=== PATIENT | male | born 2000 | race Caucasian/White ===

== ENCOUNTER 2025-06-03 23:01 | Emergency (ER) | payer OTHER, SELFPAY ==
[2025-06-03 23:01] VITALS: BP 110/78; PULSE 102; RESP 16; TEMP 36.8; O2SAT 99
[2025-06-03 23:33] LABS: Hematocrit 47.4 % (42.0-52.0); Hemoglobin 16.0 g/dL (14.0-18.0); Immature Granulocyte Percent A 0.2 % (0-0.5); Lymphocytes Absolute Auto 3.00 K/mm3 (0.9-3.2); Mean Corpuscular HGB Conc 33.8 g/dl (32-36); Mean Corpuscular Hemoglobin 28.6 pg (26-34); Mean Corpuscular Volume 84.6 fl (80-100); Nucleated Red Blood Cells Absolute Auto 0.000 K/mm3 (0.0-0.012); Nucleated Red Blood Cells Perc 0.0 % (0.0-0.2); Platelet Count Result 223 k/mm3 (150-375); Red Blood Count 5.60 M/mm3 (4.6-6.20); White Blood Count 13.5 K/mm3 (4.5-10.0)
[2025-06-03 23:43] LABS: Alanine Aminotransferase 30 U/L (6-50); Albumin Level 5.0 g/dL (3.5-5.1); Alkaline Phosphatase 60 U/L (38-126); Anion Gap 10 mmol/L (4-12); Aspartate Amino Transferase 40 U/L (17-59); Bilirubin,Total 0.2 mg/dL (0.2-1.3); Blood Urea Nitrogen 18 mg/dL (9-20); Calcium 9.8 mg/dL (8.4-10.2); Carbon Dioxide 27 mmol/L (22-30); Chloride 103 mmol/L (98-107); Estimated CRCL calculation 109 ml/min; Estimated Glomerular Filt Rate > 60; Glucose 98 mg/dL (65-110); Potassium 4.1 mmol/L (3.4-5.0); Sodium 140 mmol/L (137-145); Total Protein 8.1 g/dL (6.3-8.2)
[2025-06-03 23:51] LABS: Cannabinoid Screen Urine Negative (Negative)
--- OUTSIDE RECORDS SUMMARY | 2025-06-03 23:54 | XMS_ITS | Encounter Summary ---
Author Organization [facility] Address [address] [place] [address] Care Team Providers Care Loft Worker Head Name Role Phone Leopoldo Dillard MD Primary Care Provider Donny Kumar MD Primary Care Provider [phone] Lucinda Zabala FISH HATCHERY SUPERINTENDENT-MACHINE ERECTOR Primary Care Provider + Ellie Restrepo FISH HATCHERY SUPERINTENDENT-MACHINE ERECTOR Primary Care Provider -[phone] Haroon Root MD Primary Care Provider Celsa Marques FISH HATCHERY SUPERINTENDENT-MACHINE ERECTOR Unavailable Haroon Root MD Unavailable [phone] Chidi Jeffries METHOD CONSULTANT Unavailable [phone] Elaine Rodriguez RN Unavailable [phone] Thomas Lorenzo RN Unavailable [phone] Mitzi Stratton RECORDIST Unavailable Thomas Lorenzo RN Unavailable Mikala Blair RN Unavailable [phone] Encounter Details Date Type Department Care Team (Late st Contact Info) Description 10/27/2013 [facility] Outpatient Visit [facility] - Pediatrics [address], [address] [place] [address] Leopoldo Dillard MD [address] [place] [address] Social History Tobacco Use Types Packs/Day Years Used Date Smoking Tobacco: Never Alcohol Use Standard Drinks/Week Comments Not Asked 0 (1 standard drink = 0.6 oz pur e alcohol) Sex and Gender Information Value Date Recorded Sex Assigned at Not on file Legal Sex Male 2:04 PM [employer] Gender Identity Not on file Sexual Orientation Not on file documented as of this encounter Plan of Treatment Not on file documented as of this encounter Visit Diagnoses Not on filedocumented in this encounter Additional Health Concerns Infection Onset Date Last Indicated Resolved Time COVID-19 Confirmed 06/11/2022 06/11/2022 4:33 AM CDT COVID-19 Under Investigation 06/30/2022 06/30/2022 06/30/2022 11:11 AM CDT Influenza A or B 01/15/2024 01/15/2024 01/22/2024 4:33 AM [employer] COVID-19 Under Investigation 10/08/2024 10/08/2024 10/08/2024 7:41 AM [employer] HAND COVID-19 Under Investigation 11/25/2024 11/25/2024 11/25/2024 2:40 PM [employer] HAND COVID-19 Under Investigation 01/23/2025 01/23/2025 01/23/2025 11:17 PM [employer] documented as of this encounter Care Teams Loft Worker Head Relationship Specialty Start Date End Date Leopoldo Dillard MD [address] [place] [phone] PCP - General Pediatrics 10/17/17 10/27/18 Donny Kumar MD [address] [place] [address] PCP - General Pediatrics 10/28/18 01/28/20 Lucinda Zabala APRN-MACHINE ERECTOR [address] [place] [address], [address] [place] [address] PCP - General Nurse Practitioner Family 01/29/20 05/06/20 Ellie Restrepo, FISH HATCHERY SUPERINTENDENT-MACHINE ERECTOR [address] [place] [address] [phone] (Work) PCP - General Psychiatry 05/07/20 06/01/20 Haroon Root MD [address] [place] [phone] PCP - General Family Medicine 09/01/21 10/29/21 Celsa Marques APRN-MACHINE ERECTOR [address] [place] [phone] PCP - Attributed-[employer] Medicaid [employer] 07/27/21 Haroon Root MD [address] [place] [phone] PCP - Attributed-[employer] Medicaid [facility] 04/26/21 Chidi Jeffries [facility] Outpatient [facility] Care Management 01/08/24 01/08/24 Elaine Rodriguez RN Acoustical Tile Drill Press OperatorSenior Controls Technician 04/09/24 04/09/24 Thomas Lorenzo, RN Acoustical Tile Drill Press OperatorSenior Controls Technician 09/18/24 09/18/[address] [address] Outpatient [facility] Care Management 01/28/25 01/29/25 Thomas Lorenzo, RN Acoustical Tile Drill Press OperatorSenior Controls Technician 04/21/25 04/21/25 Mikala Blair, RN [address] [address] Acoustical Tile Drill Press OperatorSenior Controls Technician 05/27/25 05/27/25 documented as of this encounter
--- OUTSIDE RECORDS SUMMARY | 2025-06-03 23:54 | XMS_ITS | Clinical Summary ---
Author Organization [facility] Address [address] [place] [address] Care Team Providers Care Mathematical Statistician Name Role Phone ShelliAustynCelsasandeep PEÑALOZA Unavailable [phone] Haroon Root MD Unavailable [phone] Source Comments [facility],non-owned Affiliates and Associated Physician Practices is amultiple site organization consisting of ambulatory clinics and hospital sitesin [place], [place], [place] and [place]. This disclosure is being madepursuant to the Care Everywhere program and may not contain all information available regarding this patient. Last updated 18.[facility] Allergies Active Allergy Reactions Criticality Noted Date Comments Dust Mite Extract Other 04/03/2024 Medications * This document contains information received from the source organization and may not represent a complete record from that organization. * Be aware that medications may not be up to date on this document. Alwaysverify current medications with the patient. venlafaxine XR 24hr (Effexor XR) 37.5 MG capsuleIndica tions:Major Depressive Disorder Take 1 (one) capsule by mouth daily with dinner for 30 days Reasons: Major Depressive Disorder 30 capsule 05/26/20 25 025 Active multiple vitamins with minerals tabletIndicat ions:Vitamin Deficiency Take 1 (one) tablet by mouth once daily for 30 days Reasons: Vitamin Deficiency 30 tablet 05/26/20 25 025 Active folic acid (Folvite) 1 MG tabletIndicat ions:Nutritio nal Support Take 1 (one) tablet by mouth once daily for 30 days Reasons: Nutritional Support 30 tablet 05/26/20 25 025 Active thiamine (Vitamin B-1) 100 MG tabletIndicat ions:Nutritio nal Support Take 1 (one) tablet by mouth once daily for 30 days Reasons: Nutritional Support 30 tablet 05/26/20 25 025 Active nicotine polacrilex (Nicorette) 2 MG gumIndication s:Nicotine Dependence Take 1 (one) Each by mouth as needed for Smoking Cessation - Gum should be slowly chewed until a peppery taste emerges, then parked between cheek and gum to facilitate nicotine absorption. - Avoid eating or drinking for 15 minutes before and during chewing gum. Reasons: Nicotine Addiction 60 Each 05/26/20 25 025 Active nicotine polacrilex (Nicorette) 2 MG gumIndication s:Nicotine Dependence Take 1 (one) Each by mouth as needed for Smoking Cessation - Gum should be slowly chewed until a peppery taste emerges, then parked between cheek and gum to facilitate nicotine absorption. - Avoid eating or drinking for 15 minutes before and during chewing gum. Reasons: Nicotine Addiction 50 Each 01/29/20 25 025 Discontinued(Cl inical Decision) venlafaxine XR 24hr (Effexor XR) 37.5 MG capsuleIndica tions:Major Depressive Disorder Take 1 (one) capsule by mouth daily with dinner Reasons: Major Depressive Disorder 30 capsule 04/17/20 25 025 Discontinued Active Problems Problem Noted Date Diagnosed Date Alcohol abuse, episodic 02/23/2025 Suicidal ideations 02/23/2025 Malingering 09/15/2024 Tobacco use disorder 09/14/2024 Alcohol use disorder, severe, dependence 022 History of oppositional defiant disorder 021 ADHD (attention deficit hyperactivity disorder) 01/18/2021 Unspecified mood (affective) disorder 01/17/2021 Cannabis use disorder, severe, dependence 2018 High blood triglycerides 05/19/2019 Mild intermittent asthma without complication Overview (10/20/2024): Last Assessment & Plan: Assessment: Hx of intermittent asthma. No current asthma symptoms or recent illness. Lungs clear bilaterally. Plan: -Albuterol PRN -Singulair 10 mg QHS -Loratadine 10 mg daily Heart murmur 07/22/2016 Conductive hearing loss of l eft ear with unrestricted hearing of right ear 12/10/2012 Resolved Problems Problem Noted Date Diagnosed Date Resolved Date Crohn's disease 09/14/2024 09/14/2024 Homelessness 04/03/2024 09/14/2024 Deviated septum 04/30/2023 09/14/2024 Overview (09/14/2024): Last Assessment & Plan: Start Flonase 2 sprays each nostril once daily, making sure look down and aim out away from septum to reduce the potential risk of nosebleeds. If you have nosebleeds, you should stop the flonase and switch to saline nasal spray instead. Ear discharge blood, left 04/30/2023 Overview (10/20/2024): Last Assessment & Plan: Dry ear, wear ear plug when showering Avoid qtips Ok to go to rehab Follow up in several weeks for a recheck ofloxin BID for 10 days Acute COVID-19 05/20/2022 09/14/2024 Abdominal pain, generalized 10/30/2019 08/23/2021 Vomiting 10/30/2019 08/23/2021 Diarrhea 10/30/2019 11/27/2019 Intestinal infection due to Aeromonas hydrophila 07/27/2019 10/20/2024 Acute infective gastroenteritis 07/26/2019 10/20/2024 Overview (10/20/2024): Stool culture positive for Aeromonas on 07/27/2019 Last Assessment & Plan: x1 day bright red blood per rectum and one episode of coffee ground emesis, with lower abdominal pain. He has a prior history of constipation, though currently controlled on miralax and colace. External hemorrhoid on rectal exam could be contributing to red blood per rectum, however would not explain the emesis. Infectious causes are on the differential, including Salmonella, campylobacter, escherichia coli, and yersinia. C diff. was negative. Lower concern with IBD with no other systemic symptoms, normal inflammatory markers, and no oral lesions or rectal fissures/ skin tags. No food association that patient recalls, but celiac's is still a posibility. With prior alcohol history, portal pathology was considered. However he shows no other signs of portal hypertension.Patient denies insertion of foreign objects per rectum or ingestion of substances. Plan: -HUS mitigation protocol - 2L/m2 MIVF -Stool culture -f/u rectal swab -TTG -CBC, CMP in the AM Rash 06/19/2019 10/20/2024 Overview (10/20/2024): Last Assessment & Plan: Assessment: Patient with patchy, erythematous macules/papules to Bilateral lower extremities. +pruritus. Rash due to irritant such as poison olga or poison oak. Plan: -hydrocortisone cream PRN itching Elevated CPK 05/19/2019 10/20/2024 Elevated WBC count 05/19/2019 Vitamin D deficiency 05/19/2019 024 Gastroesophageal reflux disease 06/20/2018 10/20/2024 Ulcer of palate 11/02/2017 10/20/2024 Asthma 07/22/2016 09/14/2024 Palpitations 02/05/2015 08/23/2021 Assessment & Plan (02/05/2015 11:05 AM CDT): IMPRESSION Stoney is a 14 year-old with: 1. Structurally normal heart by exam, ECG, and echocardiogram. 2. Episodes of rapid heart beat associated with exercise. PLAN Stoney has a structurally normal heart by exam, ECG, and echocardiogram. I see nothing on his cardiology evaluation today to explain his symptoms. It is certainly worrisome that they have occurred during the setting of physical activity; for this reason, I have made arrangements for a graded exercise stress test to be performed in the coming weeks to try to elicit his symptoms during exercise-induced stress while watching his telemetry. For the time being, given his normal evaluation thus far, I would not restrict him from a cardiovascular standpoint regarding his routine care or activity. His follow up will be at the stress test. Stoney does not require SBE prophylaxis. S/P tympanoplasty 08/06/2012 02/22/2022 Tympanic membrane perforation 05/28/2012 10/28/2018 Sensation of fullness in left ear 08/23/2021 Encounters * This document contains information received from the source organization and may not represent a complete record from that organization. Date Type Department Care Team Description 05/27/2025 Transitional Care [facility] - Care Coordination [address] [place] [address] Mikala Blair, helix coil winder 05/23/2025 Travel 05/22/2025 10:30 PM CDT - 05/23/2025 9:43 AM CDT Emergency ER at [address] [address] Mood disorder; Suicidal ideation Discharge Disposition: Psychiatric Hospital or Unit 05/22/2025 Travel 05/01/2025 Patient Outreach [facility] Care Coordination [address] [place] [address] Mike Padilla, [facility] UC Follow-up 04/30/2025 3:21 AM CDT - 04/30/2025 4:39 PM CDT Emergency ER at [address] [address] Kevin Victoria DO Gomez, Philip Gabriel, MD Suicidal ideation (Primary Dx); Alcohol use disorder Discharge Disposition: Home or Self Care 04/30/2025 Travel 04/14/2025 4:13 AM CDT - 04/14/2025 7:33 PM CDT Emergency ER at [address] [address] Roemo White MD Bruton, Blake A., MD Severe episode of recurrent major depressive disorder, without psychotic features (HCC); Suicidal ideation Discharge Disposition: Psychiatric Hospital or Unit 04/14/2025 Travel 03/31/2025 Patient Outreach [facility] Care Coordination [address] [place] [address] Kelly Blair [facility] UC Follow-up 03/30/2025 Patient Outreach [facility] - Care Coordination [address] [place] [address] Kelly Blair MSW ER UC Follow-up 03/30/2025 Patient Outreach [facility] - [place] [id number] Kelly Blair, COIN MACHINE ASSEMBLER ER UC Follow-up 03/28/2025 3:00 AM CDT - 03/28/2025 10:25 PM CDT Emergency ER at [address] [address] Romeo White MD Treaster, MD Julien Armas Nicholas A, DO Mood disorder (Primary Dx); Depression with suicidal ideation Discharge Disposition: Psychiatric Hospital or Unit 03/28/2025 Travel 03/26/2025 Travel from Last 3 Months Immunizations Immunization Administration Dates Next Due DTP 05/03/2007, 3,06/12/2002,03/31,01/27/2002 DTaP VACCINE IM (6wk-6yrs) 02/05/2003,,03/31/2002,01/27 HEP B VACCINE, PED/ADOL 06/12/2002,2001, HIB Hep B 06/12/2002 HIB VACCINE 02/05/2003,03/31/2002,01/27/2002 HIB-PRP-T 4 DOSE 02/05/2003, 2,03/31/2002,01/27 Human Papilloma Virus Nineva lent Vaccine 12/12/2018,09/18/2018,02/18/2018 INFLUENZA VACCINE, QUADR. (F LUZONE; FLULAVAL; FLUARIX; AFLURIA QUADRIVALENT; 6MO+), 0.5 ML (IIV4) 01/18/2021,09/04/2019,09/18/2018,02/18 INFLUENZA VACCINE, TRIV. (FL UZONE; FLULAVAL; FLUARIX; AFLURIA TRIVALENT; 6MO+), 0.5 ML (IIV3) 01/26/2025(Deferred: Patient Refused) MENINGOCOCCAL ACWY (MCV4P) VAC IM 02/18/2018, MMR 05/03/2007,02/05/2003 Meningococcal B Recombinant 2 Dose, IM 8,09/18/2018 PNEUMOCOCCAL PCV7 CONJ, PEDS 03/03/2005, 06/12/2002,03/31/2002,01/27 POLIO IPV 05/03/2007, 3,06/12/2002,01/27 TDAP (7yrs+) 03/21/2019,06/12/2013 VARICELLA 05/03/2007,02/05/2003 Family History Medical History Relation Name Comments Anesthesia Reaction Mother ponv Relation Name Status Comments Mother Social History Tobacco Use Types Packs/Day Years Used Date Smoking Tobacco: Every Day Cigarettes 1 8.1 Started: 04/20/2017 Passive Smoke Exposure: Never Smokeless Tobacco: Current Chew Tobacco Cessation:Ready to Q uit: No; Counseling Given: Not Answered Alcohol Use Standard Drinks/Week Comments Yes 15 (1 standard drink = 0.6 oz pu re alcohol) current relapse 04/13/23 AUDIT-C Answer Date Recorded Q1: How often do you have a drink containing alcohol? 4 or more times a week 05/23/2025 Q2: How many drinks containi ng alcohol do you have on a typical day when you are drinking? 10 or more Q3: How often do you have si x or more drinks on one occasion? Daily or almost daily 05/23/2025 Overall Financial Resource Strain (CARDIA) Answe r Date Recorded How hard is it for you to pa y for the very basics like food, housing, medical care, and heating? Not hard at all 05/23/2025 PHQ-2 Answer Date Recorded Patient Health Questionnaire-2 Score 0 04/30/2025 [facility] - Occupational Stress Questionnaire Answer Date Recorded Do you feel stress - tense, restless, nervous, or anxious, or unable to sleep at night because your mind is troubled all the time - these days? Only a little 05/23/2025 Hunger Vital Sign Answer Date Recorded Within the past 12 months, y ou worried that your food would run out before you got the money to buy more. Never true 05/23/20 25 Within the past 12 months, t he food you bought just didn't last and you didn't have money to get more. Never true 05/23/2025 PRAPARE - Transportation Answer Date Re corded In the past 12 months, has l ack of transportation kept you from medical appointments or from getting medications? No 04/27 In the past 12 months, has l ack of transportation kept you from meetings, work, or from getting things needed for daily living? Yes 05/23/2025 Housing Stability Vital Sign Answer Pantera e Recorded In the last 12 months, was t here a time when you were not able to pay the mortgage or rent on time? No 04/03/2024 In the last 12 months, how many places have you lived? 1 04/03/2024 In the last 12 months, was t here a time when you did not have a steady place to sleep or slept in a fpc (including now)? Yes 04/03/2024 Housing Stability Vital Sign Answer Pantera e Recorded In the last 12 months, was t here a time when you were not able to pay the mortgage or rent on time? Yes 05/23/2025 In the past 12 months, how m any times have you moved where you were living? 5 05/23/2025 At any time in the past 12 m [facility], were you homeless or living in a fpc (including now)? 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 Gender Identity Not on file Sexual Orientation Not on file Last Filed Vital Signs Vital Sign Reading Time Taken Comments Blood Pressure 112/73 05/26/2025 7:09 AM CDT Pulse 70 05/26/2025 7:09 AM CDT Temperature 36.6 C (97.9 F) 05/26/2025 7:09 AM CDT Respiratory Rate 18 05/26/2025 7:09 AM CDT Oxygen Saturation 97% 05/26/2025 7:09 AM CDT Inhaled Oxygen Concentration 97% 06/08/2020 1 0:59 AM CDT Weight 73.5 kg (162 lb) 05/23/2025 10:15 AM CDT Height 175.3 cm (5' 9) 05/23/2025 10:15 AM CDT Body Mass Index 23.92 05/23/2025 10:15 AM CDT Plan of Treatment Health Maintenance Due Date Last Done Comments PNEUMOCOCCAL VACCINE (1 of 1 - PPSV23, PCV20, or PCV21) 2007 03/03/2005, 06/12/2002, 03/31/2002, Additional history exists HEPATITIS C SCREENING 11/25/2019 COVID-19 VACCINE (1 2023-2 5 season) 2024 DEPRESSION SCREENING 11/26/2024 01/15/2024, 01/15/2024, 07/19/2023, Additional history exists INFLUENZA VACCINE (#1) 2025 , 09/04/2019, 09/18/2018, Additional history exists DTAP/TDAP/TD VACCINES (8 - T d or Tdap) 03/21/2029 03/21/2019, 06/12/2013, 05/03/2007, Additional history exists ZOSTER VACCINE (1 of 2) 2051 HEPATITIS B VACCINE Completed 06/12/2002, 06/12/2002, 2001, Additional history exists HIB VACCINE Completed 02/05/2003, 01/24, 06/12/2002, Additional history exists MENINGOCOCCAL GROUPS A/C/Y/W VACCINE Completed 02/18/2018, 06/12/2013 MENINGOCOCCAL (Group B) VACC INE SHARED DECISION-MAKING Completed 10/21/2018, 09/18/2018 HPV VACCINE Completed 12/12/2018, 08/27, 02/18/2018 HIV SCREENING Completed 04/27/2023, 10/27, 06/01/2020 Procedures Procedure Name Priority Date/Time Associated Diagnosis Comments URINALYSIS REFLEX MICROSCOPIC REFLEX CULTURE STAT 05/23/2025 12:01 AM CDT DRUG ABUSE URINE SCREEN 10 STAT 05/23/2025 12:01 AM CDT TSH STAT 05/22/2025 10:48 PM CDT SALICYLATE LEVEL BLOOD STAT 10:48 PM CDT MAGNESIUM BLOOD STAT 05/22/2025 10:48 PM CDT ALCOHOL ETHYL BLOOD STAT 05/22/2025 1 0:48 PM CDT ACETAMINOPHEN LEVEL STAT 05/22/2025 1 0:48 PM CDT COMPREHENSIVE METABOLIC PANEL STAT 05/22/2025 10:48 PM CDT CBC W AUTO DIFFERENTIAL STAT 05/22/2025 10:48 PM CDT URINALYSIS REFLEX MICROSCOPIC REFLEX CULTURE STAT 04/30/2025 8:52 AM CDT DRUG ABUSE URINE SCREEN 10 STAT 04/30/2025 8:52 AM CDT HEPATIC FUNCTION PANEL Timed 6:38 AM CDT ALCOHOL ETHYL BLOOD Timed 04/30/2025 6 :38 AM CDT TSH STAT 04/30/2025 3:53 AM CDT MAGNESIUM BLOOD STAT 04/30/2025 3:53 AM CDT ALCOHOL ETHYL BLOOD STAT 04/30/2025 3 :53 AM CDT COMPREHENSIVE METABOLIC PANEL STAT 04/30/2025 3:53 AM CDT CBC W AUTO DIFFERENTIAL STAT 04/30/2025 3:53 AM CDT SALICYLATE LEVEL BLOOD STAT 3:52 AM CDT ACETAMINOPHEN LEVEL STAT 04/30/2025 3 :52 AM CDT TSH STAT 04/14/2025 4:23 AM CDT SALICYLATE LEVEL BLOOD STAT 4:23 AM CDT COMPREHENSIVE METABOLIC PANEL STAT 04/14/2025 4:23 AM CDT CBC W AUTO DIFFERENTIAL STAT 04/14/2025 4:23 AM CDT ALCOHOL ETHYL BLOOD STAT 04/14/2025 4 :23 AM CDT ACETAMINOPHEN LEVEL STAT 04/14/2025 4 :23 AM CDT URINALYSIS REFLEX MICROSCOPIC REFLEX CULTURE STAT 04/14/2025 4:18 AM CDT DRUG ABUSE URINE SCREEN 10 STAT 04/14/2025 4:18 AM CDT ALCOHOL ETHYL BLOOD STAT 03/28/2025 5 :11 AM CDT URINALYSIS REFLEX MICROSCOPIC REFLEX CULTURE STAT 03/28/2025 3:16 AM CDT DRUG ABUSE URINE SCREEN 10 STAT 03/28/2025 3:16 AM CDT TSH STAT 03/28/2025 3:10 AM CDT SALICYLATE LEVEL BLOOD STAT 3:10 AM CDT COMPREHENSIVE METABOLIC PANEL STAT 03/28/2025 3:10 AM CDT CBC W AUTO DIFFERENTIAL STAT 03/28/2025 3:10 AM CDT ALCOHOL ETHYL BLOOD STAT 03/28/2025 3 :10 AM CDT ACETAMINOPHEN LEVEL STAT 03/28/2025 3 :10 AM CDT HIV-1 HIV-2 ANTIBODY + HIV P24 AG PANEL Routine 06/01/2020 2:07 PM CDT IBD (inflammatory bowel disease) from Last 3 Months or Most Recently Relevant to Health Maintenance Results * DRUG ABUSE URINE SCREEN 10 (05/23/2025 12:01 AM CDT) Only the most recent of4 resultswithin the time period is included. [facility] Amphetamines Screen Urine Negative Negative 05/23/2025 12:18 AM CDT [facility] Barbiturates Screen Urine Negative Negative 05/23/2025 12:18 AM CDT [facility] Benzodiazepines Screen Urine Negative Negative 05/23/2025 12:18 AM CDT [facility] Cannabinoids Screen Urine Negative Negative 05/23/2025 12:18 AM CDT [facility] Cocaine Screen Urine Negative Negative 05/23/2025 12:18 AM CDT [facility] Methadone Screen Urine Negative Negative 05/23/2025 12:18 AM CDT [facility] Opiate Screen Urine Negative Negative 05/23 12:18 AM CDT [facility] Phencyclidine Screen Urine Negative Negative 05/23/2025 12:18 AM CDT [facility] Tricyclics Screen Urine Negative Negative 05/23/2025 12:18 AM CDT [facility] Methamphetamine Screen Urine Negative Negative 05/23/2025 12:18 AM CDT [facility] Buprenorphine Screen Urine Negative Negative 05/23/2025 12:18 AM CDT [facility] Oxycodone Screen Urine Negative Negative 05/23/2025 12:18 AM CDT [facility] Urine URINE / Unknown Collection / Unknown 05/23/2025 12:01 AM CDT 05/23/2025 12:05 AM CDT Narrative [facility] - 05/23/2025 12:18 AM CDT This is a presumptive/unconfirmed test for medical treatment purposes only. Clinical consideration and professional judgment should be applied when using presumptive results. If confirmatory testing, such as gas chromatography-mass spectrometry (GC/MS), of any positive results of this test is required, please notify the laboratory within 7 days of collection. This test is intended only for monitoring or management of patients. It is not intended for use in job-related and/or legal-related purposes. The cutoff value for each analyte is: Barbiturates.....200 ng/mL Benzodiazepines......150 ng/mL Cocaine..........150 ng/mL Opiates..............100 ng/mL Phencyclidine.....25 ng/mL Tricyclics...........300 ng/mL Cannabinoid.......50 ng/mL Amphetamines.........500 ng/mL Methadone........200 ng/mL Methamphetamines.....500 ng/mL Buprenorphine.....10 ng/mL Oxycodone............100 ng/mL us Deshawn Lr MD LAB - URINE CHEMISTRY KATHYA MESA Final Result [facility] [address] [place], [place] [address] * (ABNORMAL) URINALYSIS REFLEX MICROSCOPIC REFLEX CULTURE (05/23/2025 12:01 AM CDT) Only the most recent of4 resultswithin the time period is included. [facility] Signature Color UA Yellow Yellow, Straw 05/23/2025 12:09 AM CDT [facility] Clarity UA Clear Clear 05/23/2025 12:09 AM CDT [facility] Glucose UA Negative Negative 05/23/2025 12:09 AM CDT [facility] Bilirubin UA Negative Negative 05/23/2025 12:09 AM CDT [facility] Ketone UA Negative Negative 05/23/2025 12:09 AM CDT [facility] Specific Minto UA 1.031(H) 1.005 - 1.030 05/23/2025 12:09 AM CDT [facility] Blood UA Negative Negative 05/23/2025 12:09 AM CDT [facility] pH UA 6.5 5.0 - 8.0 05/23/2025 12:09 AM CDT [facility] Protein UA Negative Negative 05/23/2025 12:09 AM CDT [facility] Urobilinogen UA Normal Normal mg/dL 05/23/2025 12:09 AM CDT [facility] Nitrite UA Negative Negative 05/23/2025 12:09 AM CDT [facility] Leukocyte Esterase UA Negative Negative 05/23/2025 12:09 AM CDT [facility] Reflex Status Culture not indicated 05/23/2025 12:09 AM CDT [facility] Urine Microscopy Urine microscopy not indicated 05/23/2025 12:09 AM CDT [facility] Urine URINE SPECIMEN OBTAINED BY CLEAN CATCH PROCEDURE / Unknown Collection / Unknown 05/23/2025 12:01 AM CDT 05/23/2025 12:05 AM CDT us Deshawn Lr MD LAB - URINALYSIS ORDERABLE S Final Result [facility] [address] [place] [address], [facility] * (ABNORMAL) CBC W AUTO DIFFERENTIAL (05/22/2025 10:48 PM CDT) Only the most recent of4 resultswithin the time period is included. [facility] WBC 10.4 4.0 - 10.7 x10E9/L 05/22/2025 10:58 PM CDT [facility] RBC Count 5.32 4.30 - 5.80 x10E12/L 05/22/2025 10:58 PM CDT [facility] Hemoglobin 15.7 13.3 - 17.5 g/dL 05/22/2025 10:58 PM CDT [facility] Hematocrit 44.8 38.7 - 51.1 % 05/22/2025 10:58 PM CDT [facility] MCV 84.2 80.0 - 98.0 fL 05/22/2025 10:58 PM CDT [facility] MCH 29.5 26.7 - 33.6 pg 05/22/2025 10:58 PM CDT [facility] MCHC 35.0 31.7 - 36.3 g/dL 05/22/2025 10:58 PM CDT [facility] RDW-CV 12.8 11.3 - 14.8 % 05/22/2025 10:58 PM CDT [facility] Platelet Count 246 150 - 420 x10E9/L 05/22/2025 10:58 PM CDT [facility] MPV 10.3 7.8 - 11.4 fL 05/22/2025 10:58 PM CDT [facility] Neutrophil % 48.7 41.0 - 74.0 % 05/22/2025 10:58 PM CDT [facility] Lymphocyte % 38.4 17.0 - 47.0 % 05/22/2025 10:58 PM CDT [facility] Monocyte % 9.7 3.0 - 11.0 % 05/22/2025 10:58 PM CDT [facility] Eosinophil % 2.3 0.0 - 7.0 % 05/22/2025 10:58 PM CDT [facility] Basophil % 0.7 0.0 - 1.6 % 05/22/2025 10:58 PM CDT [facility] Immature Granulocytes % 0.2 0.0 - 1.0 % 05/22/2025 10:58 PM CDT [facility] Neutrophil Absolute 5.05 1.60 - 7.50 x10E9/L 05/22/2025 10:58 PM CDT [facility] Lymphocyte Absolute 3.98 1.00 - 4.40 x10E9/L 05/22/2025 10:58 PM CDT [facility] Monocyte Absolute 1.01(H) 0.15 - 1.00 x10E9/L 05/22/2025 10:58 PM CDT [facility] Eosinophil Absolute 0.24 0.00 - 0.60 x10E9/L 05/22/2025 10:58 PM CDT [facility] Basophil Absolute 0.07 0.00 - 0.13 x10E9/L 05/22/2025 10:58 PM CDT [facility] Blood BLOOD SPECIMEN / Unknown Venipuncture / Unknown 05/22/2025 10:48 PM CDT 05/22/2025 10:55 PM CDT us Deshawn Lr MD LAB - HEMATOLOGY ORDERABLE S Final Result Performing Organization Address [facility] de Phone Number [facility] [address] * (ABNORMAL) COMPREHENSIVE METABOLIC PANEL (05/22/2025 10:48 PM CDT) Only the most recent of4 resultswithin the time period is included. [facility] Glucose 105 70 - 125 mg/dL 05/22/2025 11:13 PM CDT [facility] Sodium 141 136 - 145 mmol/L 05/22/2025 11:13 PM CDT [facility] Potassium 3.9 3.4 - 5.1 mmol/L 05/22/2025 11:13 PM CDT [facility] Chloride 105 98 - 107 mmol/L 05/22/2025 11:13 PM CDT [facility] CO2 23 22 - 29 mmol/L 05/22/2025 11:13 PM CDT [facility] Calcium 9.03 8.4 - 10.2 mg/dL 05/22/2025 11:13 PM [facility] Anion Gap 13 6 - 16 mmol/L 05/22/2025 11:13 PM [facility] BUN 17.9 8.4 - 25.7 mg/dL 05/22/2025 11:13 PM T [facility] Creatinine 1.20 0.72 - 1.25 mg/dL 05/22/2025 11:13 PM [facility] Alkaline Phosphatase 84 40 - 150 U/L 05/22/2025 11:13 PM [facility] ALT 44(H) 7 - 42 U/L 05/22/2025 11:13 PM T [facility] AST 34 5 - 34 U/L 05/22/2025 11:13 PM [facility] Protein Total 7.1 6.4 - 8.3 gm/dL 05/22/2025 11:13 PM [facility] Albumin 4.5 3.1 - 4.5 gm/dL 05/22/2025 11:13 PM [facility] Globulin Total 2.6 2.6 - 4.0 gm/dL 05/22/2025 11:13 PM [facility] Albumin/Globulin Ratio 1.7(H) 0.9 - 1.6 05/22/2025 11:13 PM [facility] Bilirubin Total 0.2 0.2 - 1.2 mg/dL 05/22/2025 11:13 PM [facility] eGFR 87(L) >90 mL/min/1.7 3m2 05/22/2025 11:13 PM [facility] Comment:The GFR result was c alculated using the updated CKD-EPI Creatinine Equation (2020). Blood BLOOD SPECIMEN / Unknown Venipuncture / Unknown 05/22/2025 10:48 PM CDT 05/22/2025 10:55 PM CDT us Deshawn Lr MD LAB - CHEMISTRY ORDERABLES Final Result [facility] [address] * MAGNESIUM BLOOD (05/22/2025 10:48 PM CDT) Only the most recent of2 resultswithin the time period is included. Magnesium 2.1 1.6 - 2.6 mg/dL 05/22/2025 11:13 PM CDT [facility] Blood BLOOD SPECIMEN / Unknown Venipuncture / Unknown 05/22/2025 10:48 PM CDT 05/22/2025 10:55 PM CDT Deshawn Lr MD LAB - CHEMISTRY ORDERABLES Final Result Performing Organization Address [facility] de Phone Number [facility] [address] * ALCOHOL ETHYL BLOOD (05/22/2025 10:48 PM CDT) Only the most recent of6 resultswithin the time period is included. Pathologist [facility] Ethanol <10.0 <10 mg/dL 05/22/2025 11:15 PM CDT [facility] Blood BLOOD SPECIMEN / Unknown Venipuncture / Unknown 05/22/2025 10:48 PM CDT 05/22/2025 10:55 PM CDT Narrative [facility] - 05/22/2025 11:15 PM CDT For Medical Use Only Deshawn Lr MD LAB - CHEMISTRY ORDERABLES Final Result Performing Organization Address City/[facility] de Phone Number [facility] [address] * TSH (05/22/2025 10:48 PM CDT) Only the most recent of4 resultswithin the time period is included. TSH 1.4815 0.35 - 4.94 uIU/mL 05/22/2025 11:33 PM CDT [facility] Blood BLOOD SPECIMEN / Unknown Venipuncture / Unknown 05/22/2025 10:48 PM CDT 05/22/2025 10:55 PM CDT Deshawn Lr MD LAB - CHEMISTRY ORDERABLES Final Result Performing Organization Address City/[facility]/ZIP Co de Phone Number [facility] [address] * (ABNORMAL) SALICYLATE LEVEL BLOOD (05/22/2025 10:48 PM CDT) Only the most recent of4 resultswithin the time period is included. Salicylate <5.0(L) 15.0 - 30.0 mg/dL 05/22/2025 11:24 PM CDT [facility] Blood BLOOD SPECIMEN / Unknown Venipuncture / Unknown 05/22/2025 10:48 PM CDT 05/22/2025 10:55 PM CDT Deshawn Lr MD LAB - CHEMISTRY ORDERABLES Final Result Performing Organization Address [facility] de Phone Number [facility] [address] * ACETAMINOPHEN LEVEL (05/22/2025 10:48 PM CDT) Only the most recent of4 resultswithin the time period is included. Pathologist [facility] Acetaminophen <5.0 <=30.0 ug/mL 05/22/2025 11:22 PM CDT [facility] Blood BLOOD SPECIMEN / Unknown Venipuncture / Unknown 05/22/2025 10:48 PM CDT 05/22/2025 10:55 PM CDT Narrative [facility] - 05/22/2025 11:22 PM CDT Significantly reduced Acetaminophen recovery has been demonstrated in situations where testing has been performed immediately after introduction of N- acetylcysteine (NAC). Deshawn Lr MD LAB - CHEMISTRY ORDERABLES Final Result Performing Organization Address City/[facility] Co de Phone Number [facility] [address] * (ABNORMAL) HEPATIC FUNCTION PANEL (04/30/2025 6:38 AM CDT) Alkaline Phosphatase 79 40 - 150 U/L 04/30/2025 7:16 AM CDT [facility] ALT 53(H) 7 - 42 U/L 04/30/2025 7:16 AM CDT [facility] AST 32 5 - 34 U/L 04/30/2025 7:16 AM CDT [facility] Protein Total 6.6 6.4 - 8.3 gm/dL 04/30/2025 7:16 AM CDT AM LABORAT[facility] Albumin 4.1 3.1 - 4.5 gm/dL 04/30/2025 7:16 AM CDT [facility] Bilirubin Total 0.2 0.2 - 1.2 mg/dL 04/30/2025 7:16 AM CDT [facility] Bilirubin Direct <0.10 <=0.5 mg/dL 04/30/2025 7:16 AM CDT [facility] Albumin/Globulin Ratio 1.6 0.9 - 1.6 04/30/2025 7:16 AM CDT [facility] Globulin Total 2.5(L) 2.6 - 4.0 gm/dL 04/30/2025 7:16 AM CDT [facility] Bilirubin Indirect 04/30/2025 7:16 AM CDT [facility] Comment:Not Calculated Blood BLOOD SPECIMEN / Unknown Venipuncture / Unknown 04/30/2025 6:38 AM CDT 04/30/2025 6:45 AM CDT us Kevin Victoria DO LAB - CHEMISTRY ORDERABLES F inal Result Performing Organization Address City/State/[facility] Co de Phone Number [facility] [address] [place], [place] [address] * HIV-1 HIV-2 ANTIBODY + HIV P24 AG PANEL (06/01/2020 2:07 PM CDT) [facility] HIV1/2 Ab + P24 Ag Non Reactive Non Reactive 06/01/2020 4:43 PM CDT [facility] Blood BLOOD SPECIMEN / Unknown Lab Venipuncture / Unknown 06/01/2020 2:07 PM CDT 06/01/2020 3:05 PM CDT Narrative [facility] - 06/01/2020 4:43 PM CDT No Laboratory evidence of HIV infection. us Nohemy Padilla MD LAB - CHEMISTRY ORDERABLES Final Result [facility] [address] [place] [address] from Last 3 Months or Most Recently Relevant to Health Maintenance Insurance [address] [place] [address] MEDICAID - OUT OF STATE [facility] * Guarantor: DCFS,FAMILY SERVICES Account Type Relation to Patient Date of Phone Billing Address Personal/Family Legal Guardian [phone] (Home) [address] [place] [address] * Guarantor: E-SCREEN,SOIL Account Type Relation to Patient Date of Phone Billing Address Company Employer ATTN [employer] [address] Advance Directives * Full Code (Latest Code Status on File) Date Activated Date Inactivated Comments 05/23/2025 10:20 AM 05/26/2025 3:10 PM * Full Code Date Activated Date Inactivated Comments 04/14/2025 7:58 PM 04/17/2025 4:15 PM * Full Code Date Activated Date Inactivated Comments 01/24/2025 9:52 AM 01/28/2025 9:35 AM * Full Code Date Activated Date Inactivated Comments 09/14/2024 3:58 PM 09/17/2024 12:45 PM * Full Code Date Activated Date Inactivated Comments 04/03/2024 11:57 AM 04/08/2024 1:10 PM Care Teams Mathematical Statistician Relationship Specialty Start Date End Date Celsa Marques APRN-CNP PCP - Attributed-[employer] Medicaid [place] 07/27/21 Haroon Root MD [address] [place] [id number] PCP - Attributed-[place] Medicaid [facility] 04/26/21
--- OUTSIDE RECORDS SUMMARY | 2025-06-03 23:54 | XMS_ITS | Encounter Summary ---
Author Organization [facility] Address [address] [place] [address] Care Team Providers Care Cushion Gum Applicator Name Role Phone Haroon Root MD Primary Care Provider Celsa Marques APRN-OFFSET PRINTER Unavailable [phone] Haroon Root MD Unavailable [phone] Chidi Jeffries BEAD FLIPPER Unavailable [phone] Elaine Rodriguez RN Unavailable [phone] Thomas Lorenzo RN Unavailable Mitzi Stratton MANAGER PORT Unavailable Thomas Lorenzo RN Unavailable Mikala Blair RN Unavailable [phone] Encounter Details Date Type Department Care Team (Late st Contact Info) Description 07/06/2020 Telephone [facility] - [address] [address] Jewels Sanchez MD [address] [place] [address] Social History Tobacco Use Types Packs/Day Years Used Date Smoking Tobacco: Former Cigarettes Smokeless Tobacco: Former Comments:Pt. Alcohol Use Standard Drinks/Week Comments Not Currently 0 (1 standard drink = 0.6 oz pur e alcohol) used to drink Sex and Gender Information Value Date Recorded Sex Assigned at Not on file Legal Sex Male 2:04 PM DIESEL ENGINE ENGINEER Gender Identity Not on file Sexual Orientation Not on file COVID-19 Exposure Response Date Recorded In the last month, have you been in contact with someone who was confirmed or suspected to have Coronavirus / COVID-19? No / Unsure 07/06/2020 8:10 AM CDT documented as of this encounter Functional Status * Is person deaf or have serious hearing difficulty? Answer Date of Assessment Author No 01/23/2020 1:25 PM Rosales RN * Is person blind or have serious difficulty seeing? Answer Date of Assessment Author No 01/23/2020 1:25 PM Rosales RN * Does person have serious difficulty walking/climbing stairs? Answer Date of Assessment Author No 01/23/2020 1:25 PM Rosales RN * Does person have difficulty dressing/bathing? Answer Date of Assessment Author No 01/23/2020 1:25 PM Rosales RN * Does person have difficulty doing errands alone? Answer Date of Assessment Author Yes 01/23/2020 1:25 PM Rosales RN documented as of this encounter Mental Status * Does person have difficulty concentrating/remembering/making decisions? Answer Entry Date Author No 01/23/2020 1:25 PM Rosales RN documented in this encounter Miscellaneous Notes * Telephone Encounter - Rafaela Flynn LPN - 10/29/2020 10:48 AM CST Called and spoke with guardians (grandparents) regarding appointment today with Dr Sanchez in . Malina stated that Stoney is currently detained and will be unavailable for his appointment today. Willhave to reschedule. EL ENGINE ENGINEER * Telephone Encounter - La Ring RN - 08/20/2020 11:[address] Barrientos signed orders - returned to Nohemy Welsh @ fax # in previous note. * Telephone Encounter - La Ring RN - 08/20/2020 10:49 AM CDT Received fax from [facility] Health Vibrator Operator. Requesting physician signature on previous lab orders for billing purposes. Forms placed in Dr. Padilla's box for review/signature. Return fax # [phone] * Telephone Encounter - Joanne Conley RN - 07/26/2020 2:02 PM CDT Called and spoke with Stoney. He states he took 6-MP for a few days and then stopped. Currently Stoney is taking NO medications. He states the only symptom he is having is a headache.Stools normal. He does not want to get labs since he has not been on any medications. I tried to speak to Stoney about the importance of taking medication, however, it is clear to me he is not going to do so. Stoney is 19 and I am unsure the next step. Will send to Dr. Sanchez to review. He did seem open to another telemed visit, however, he was just seen 07/06. * Telephone Encounter - Milton Zepeda - 07/26/2020 1:21 PM CDT Grandfather (Sarabjit) called back to discuss the letter he received. He is requesting a call back [phone]. * Telephone Encounter - Violetta Orr RN - 07/21/2020 9:18 AM CDT Patient has calling restrictions set on his phone that is preventing my call from going through. Letter mailed to home address that we are trying to contact them. * Telephone Encounter - Violetta Orr RN - 07/06/2020 10:18 AM CDT Spoke to Stoney, he will go to [facility] for labs. Orders entered for monthly draws. Telemedicine appointment scheduled for 10/29, first available with Dr. Sanchez in 3-4 months. Will forward to Dr. Padilla to see if she is available. Will call patient in 2 weeks for an update. * Telephone Encounter - Jewels Sanchez MD - 07/06/2020 10:06 AM CDT We are starting him on 6-MP. HE is to do CBC, CMP, ESR once a month, starting 08/10/20, for 3 months, then every 3 months for a year. He needs to do these labs locally. Please arrange. Please, also make telemedicine appointment with me or Nohemy/me in 3 months. Also, call in 2 weeks to see how he is doing. He is supposed to set appointment with Psych and a PCP locally. Thanks. documented in this encounter Plan of Treatment Not on file documented as of this encounter Visit Diagnoses Diagnosis Crohn's disease of small intestine without complication (HCC)- [facility] enteritis of small intestine documented in this encounter Additional Health Concerns Infection Onset Date Last Indicated Resolved Time COVID-19 Confirmed 06/11/2022 06/11/2022 4:33 AM CDT COVID-19 Under Investigation 06/30/2022 06/30/2022 06/30/2022 11:11 AM CDT Influenza A or B 01/15/2024 01/15/2024 01/22/2024 4:33 AM DIESEL ENGINE ENGINEER COVID-19 Under Investigation 10/08/2024 10/08/2024 10/08/2024 7:41 AM DIESEL ENGINE ENGINEER COVID-19 Under Investigation 11/25/2024 11/25/2024 11/25/2024 2:40 PM DIESEL ENGINE ENGINEER COVID-19 Under Investigation 01/23/2025 01/23/2025 01/23/2025 11:17 PM DIESEL ENGINE ENGINEER documented as of this encounter Care Teams Cushion Gum Applicator Relationship Specialty Start Date End Date Haroon Root MD [address] [place] [phone] PCP - General Family Medicine 09/01/21 10/29/21 Celsa Marques APRN-OFFSET PRINTER [address] [place] [phone] PCP - Attributed-[employer]anks Medicaid [place] 07/27/21 Haroon Root MD [address] [place] [address] PCP - Attributed-[place] Medicaid [facility] 04/26/21 [facility] Out[facility] [employer] [facility] Care Management 01/08/2412/27 Elaine Rodriguez, RN Filtration OperatorEvent Planner 04/09/24 04/09/24 Thomas Lorenzo, RN Filtration OperatorEvent Planner 09/18/24 09/18/24 Mitzi Stratton, [address] [address] Outpatient [employer] Care Management 01/28/2501/29 Thomas Lorenzo, RN Filtration OperatorEvent Planner 04/21/25 04/21/25 Mikala Blair, JERAD [address] [place] [address] Filtration OperatorEvent Planner 05/27/25 05/27/25 documented as of this encounter
--- OUTSIDE RECORDS SUMMARY | 2025-06-03 23:54 | XMS_ITS | Clinical Summary ---
Author Organization [facility] Address [facility] [place] [address] Care Team Providers Care Windows Admin Name Role Phone Up, Pcp Follow Primary Care Provider Unavailabl e Allergies Active Allergy Reactions Criticality Noted Date Comments Mite Extract Other (see comments) Medium 04/03/2024 Medications Ear Drops, carbamide peroxide, 6.5 % otic solution 3 Active escitalopram (LEXAPRO) 5 mg tabletIndicatio ns:Other mixed anxiety disorders,Major depressive disorder, recurrent severe without psychotic features (HCC) Take 3 tablets (15 mg total) by mouth daily for 15 days 45 tablet 5 Active folic acid (FOLVITE) 1 mg tabletIndicatio ns:Alcohol abuse, episodic Take 1 tablet (1 mg total) by mouth daily for 15 days 15 tablet 5 Active traZODone (DESYREL) 50 mg tabletIndicatio ns:Other mixed anxiety disorders,Major depressive disorder, recurrent severe without psychotic features (HCC) Take 1 tablet (50 mg total) by mouth nightly as needed for sleep for up to 15 days 15 tablet 5 Active fluticasone propionate (FLONASE) 50 mcg/actuation nasal sprayIndication s:Deviated septum Administer 1 spray into each nostril 2 (two) times a day 16 g 5 Active hydrOXYzine (VISTARIL) 25 mg capsuleIndicati ons:Ear discharge blood, left,Other mixed anxiety disorders Take 1 capsule (25 mg total) by mouth every 6 (six) hours as needed for anxiety 90 capsule 5 Active nicotine (NICODERM CQ) 14 mg/24 hrIndications:s moking cessation Place 1 patch (14 mg total) on the skin daily Indications: stop smoking 30 patch 5 Active thiamine (VITAMIN B1) 100 mg tabletIndicatio ns:Alcohol abuse, episodic Take 1 tablet (100 mg total) by mouth daily 30 tablet 5 Active Active Problems Problem Noted Date Diagnosed Date Major depressive disorder, r ecurrent severe without psychotic features 02/23/2025 Assessment & Plan (04/06/2025 10:04 AM CDT): Follow up with family physician and psychiatrist in 2 weeks. He was advised to go to nearest ER in case of emergency or call 911. Assessment & Plan (02/27/2025 6:26 PM CDT): Follow up with family physician and psychiatrist in 2 weeks. He was advised to go to nearest ER in case of emergency or call 911. Medications Plan: Continue on Lexapro to 15 mg today for mood and anxiety symptoms. Discussed risk and benefits of medication(s) and patient seems to have reasonable decision capacity to give informed consent for prescribed medications. Suicidal ideations 02/23/2025 Assessment & Plan (04/06/2025 10:04 AM CDT): Resolved. Follow up with family physician and psychiatrist in 2 weeks. He was advised to go to nearest ER in case of emergency or call 911. Assessment & Plan (02/27/2025 6:25 PM CDT): Resolved. Alcohol abuse, episodic 02/23/2025 Assessment & Plan (04/06/2025 10:10 AM CDT): Follow up with family physician and psychiatrist in 2 weeks. He was advised to go to nearest ER in case of emergency or call 911. Assessment & Plan (02/27/2025 6:26 PM CDT): Follow up with family physician and psychiatrist in 2 weeks. He was advised to go to nearest ER in case of emergency or call 911. Other mixed anxiety disorders 02/23/2025 Assessment & Plan (04/06/2025 10:04 AM CDT): Follow up with family physician and psychiatrist in 2 weeks. He was advised to go to nearest ER in case of emergency or call 911. Assessment & Plan (02/27/2025 6:26 PM CDT): Follow up with family physician and psychiatrist in 2 weeks. He was advised to go to nearest ER in case of emergency or call 911. Medications Plan: Continue on Lexapro to 15mg for anxiety symptoms. I will consider adding hydroxyzine on as needed basis for breakthrough anxiety. Discussed risk and benefits of medication(s) and patient seems to have reasonable decision capacity to give informed consent for prescribed medications. Ear discharge blood, left 04/30/2023 Assessment & Plan (04/30/2023 10:38 AM CDT): Dry ear, wear ear plug when showering Avoid qtips Ok to go to rehab Follow up in several weeks for a recheck ofloxin BID for 10 days Deviated septum 04/30/2023 Assessment & Plan (04/30/2023 10:38 AM CDT): Start Flonase 2 sprays each nostril once daily, making sure look down and aim out away from septum to reduce the potential risk of nosebleeds. If you have nosebleeds, you should stop the flonase and switch to saline nasal spray instead. Resolved Problems Problem Noted Date Diagnosed Date Resolved Date Major depressive disorder with single episode 04/02/20 25 04/03/2025 Encounters Date Type Department Care Team Description 04/02/2025 6:37 PM CDT - 04/06/2025 11:54 AM CDT Hospital Encounter [facility] [address] [place] [address] Beto Constantino MD Ear discharge blood, left (Primary Dx); Deviated septum; Other mixed anxiety disorders; Alcohol abuse, episodic; Nicotine abuse Discharge Disposition: Inpatient rehab 04/02/2025 Travel 04/02/2025 [facility] Intake Inquiry [place] [id number] [place] [address] Ca Jones RN from Last 3 Months Immunizations Immunization Administration Dates Next Due DTP 05/03/2007 DTaP 02/05/2003,06/12/2002,03/31/2002 ,01/27/2002 Hep B / HiB 06/12/2002 Hep B, Adolescent or Pediatric 06/12/2002,2001,2001 HiB 02/05/2003,03/31/2002,01/27/2002 Hib (PRP-T) 06/12/2002 Hpv 9 12/12/2018,09/18/2018,02/18/2018 IPV 05/03/2007,02/05/2003,06/12/2002 ,01/27/2002 Influenza (IM) Quad PF 01/18/2021,09/04/2019,,02/18/2018 MMR 05/03/2007,02/05/2003 Meningococcal B, OMV 10/21/2018,09/18/2018 Meningococcal MCV4P 02/18/2018,06/12/2013 Pneumococcal Conjugate 03/03/2005,06/12/2002,04/2002,01/27/2002 Tdap 03/21/2019,06/12/2013 Varicella 05/03/2007,02/05/2003 Social History Tobacco Use Types Packs/Day Years Used Date Smoking Tobacco: Every Day Cigarettes Tobacco Cessation:Ready to Q uit: No; Counseling Given: Yes Alcohol Use Standard Drinks/Week Comments Not Asked 0 (1 standard drink = 0.6 oz pur e alcohol) [facility] Utilities Answer Date Recorded In the past 12 months has [employer], oil, or water [employer] threatened to shut off services in your home? No 04/02/2025 AUDIT-C Answer Date Recorded Q1: How often do you have a drink containing alcohol? 4 or more times a week 04/03/2025 Q2: How many drinks containi ng alcohol do you have on a typical day when you are drinking? 10 or more Q3: How often do you have si x or more drinks on one occasion? Daily or almost daily 04/03/2025 PHQ-2 Answer Date Recorded Patient Health Questionnaire-2 Score 1 04/02/2025 Hunger Vital Sign Answer Date Recorded Within the past 12 months, y ou worried that your food would run out before you got the money to buy more. Never true 04/02/20 25 Within the past 12 months, t he food you bought just didn't last and you didn't have money to get more. Never true 04/02/2025 PRAPARE - Transportation Answer Date Re corded In the past 12 months, has l ack of transportation kept you from medical appointments or from getting medications? Yes 07/2025 In the past 12 months, has l ack of transportation kept you from meetings, work, or from getting things needed for daily living? Yes 04/03/2025 PHQ-9 Answer Date Recorded Patient Health Questionnaire-9 Score 23 02/23/2025 Housing Stability Vital Sign Answer Pantera e Recorded In the last 12 months, was t here a time when you were not able to pay the mortgage or rent on time? No 04/02/2025 In the past 12 months, how m any times have you moved where you were living? 0 04/02/2025 At any time in the past 12 m [facility], were you homeless or living in a penitentiary (including now)? No 04/02/2025 Sex and Gender Information Value Date Recorded Sex Assigned at Not on file Legal Sex Male 4:42 PM SIGNALMAN Gender Identity Not on file Sexual Orientation Not on file Last Filed Vital Signs Vital Sign Reading Time Taken Comments Blood Pressure 128/70 04/06/2025 11:09 AM CDT Pulse 62 04/06/2025 11:09 AM CDT Temperature 36.1 C (96.9 F) 04/06/2025 11:09 AM CDT Respiratory Rate 18 04/06/2025 11:09 AM CDT Oxygen Saturation 98% 04/06/2025 11:09 AM CDT Inhaled Oxygen Concentration - - Weight 75.8 kg (167 lb) 04/06/2025 11:09 AM CDT Height 175.3 cm (5' 9) 04/02/2025 7:00 PM CDT Body Mass Index 24.66 04/02/2025 7:00 PM CDT Plan of Treatment Health Maintenance Due Date Last Done Comments AMB Pneumococcal 0-49 yrs (1 of 2 - PCV) 2020 03/03/2005, 06/12/2002, 03/31/2002, Additional history exists COVID-19 Vaccine (2023- season) 2024 Influenza Vaccine (#1) 2025 , 09/04/2019, 09/18/2018, Additional history exists DTaP,Tdap,and Td Vaccines (8 - Td or Tdap) 03/21/2029 03/21/2019, 06/12/2013, 05/03/2007, Additional history exists RSV Vaccines and 60 Years or Older (1 - 1-dose 75+ series) 2076 Hepatitis B Vaccines Completed 06/12/2002, 06/12/2002, 2001, Additional history exists HIB Vaccines Completed 02/05/2003, 05/26, 06/12/2002, Additional history exists IPV Vaccines Completed 05/03/2007, 01/24, 06/12/2002, Additional history exists MMR Vaccines Completed 05/03/2007, 02/05/2003 Varicella Vaccines Completed 05/03/2007, 02/05/2003 Meningococcal ACWY Vaccine Completed 02/18/2018, Meningococcal B Vaccine Completed 10/21/20 18, 09/18/2018, 02/18/2018, Additional history exists HPV Vaccines Completed 12/12/2018, 08/27, 02/18/2018 Hepatitis A Vaccines Aged Out No long er eligible based on patient's age to complete this topic RSV Vaccines <20 Months Aged Out No l onger eligible based on patient's age to complete this topic Insurance ([facility] [facility] Advance Directives For more information, please contact: [phone] * Full Code (Latest Code Status on File) Date Activated Date Inactivated Comments 04/02/2025 7:17 PM 04/06/2025 1:55 PM * Full Code Date Activated Date Inactivated Comments 02/23/2025 2:50 PM 02/27/2025 9:54 AM Care Teams Windows Admin Relationship Specialty Start Date End Date Up, Pcp Follow JASIEL MOURA [id number] PCP - General Family Medicine 04/28/23
--- OUTSIDE RECORDS SUMMARY | 2025-06-03 23:54 | XMS_ITS | Patient Health Record ---
Author Organization [facility] Address [address] [place] [address] Care Team Providers Care Computer Science Teacher Name Role Phone DanielElsa murillo Primary Care Provider Izzy Jose Unavailable [phone] Sneha Fernando Unavailable ArielleGaviota crowley Unavailable [phone] Allergies No Known Allergies Results Component Value Reference Range Notes Glucose Fingerstick Reviewed date:05/26/2025 03:08:14 PM Interpretation: Performing Lab: Notes/Report: Result 114 70 - 120 mg/dL HIV Screen *HIV 1, 2 Ab, p24 Ag ([id number]) Reviewed date:06/03/2025 08:52:00 AM Interpretation:Normal Performing Lab:[facility], [address] [facility], Phone - [phone], Director - [facility] Notes/Report: HIV Ab/p24 Ag Screen Non Reactive Non Reactive HIV-1/HIV-2 antibodies and HIV-1 p24 antigen were NOT detected. There is no laboratory evidence of HIV infection. HIV Negative CMP 14 Comprehensive Metabol ic Panel* Reviewed date:06/03/2025 08:52:00 AM Interpretation:Normal Performing Lab:[facility] [employer] [facility] [place], [address] [facility], Phone - [phone], [facility] Notes/Report: Glucose 87 70-99 mg/dL BUN 14 6-20 mg/dL Creatinine 1.12 0.76-1.27 mg/dL eGFR 95 >59 mL/min/1.73 BUN/Creatinine Ratio 13 9-20 Sodium 140 134-144 mmol/L Potassium 4.3 3.5-5.2 mmol/L Chloride 101 96-106 mmol/L Carbon Dioxide, Total 23 20-29 mmol/L Calcium 9.3 8.7-10.2 mg/dL Protein, Total 7.0 6.0-8.5 g/dL Albumin 4.8 4.3-5.2 g/dL Globulin, Total 2.2 1.5-4.5 g/dL Bilirubin, Total <0.2 0.0-1.2 mg/dL Alkaline Phosphatase 88 44-121 IU/L AST (SGOT) 15 0-40 IU/L ALT (SGPT) 22 0-44 IU/L CBC With Differential/Platel et* Reviewed date:06/03/2025 08:52:00 AM Interpretation:Normal Performing Lab:[facility] [place], [address] [facility], [place], Phone - [phone], Director - Kris Notes/Report: WBC 8.8 3.4-10.8 x10E3/uL RBC 5.58 4.14-5.80 x10E6/uL Hemoglobin 16.4 13.0-17.7 g/dL Hematocrit 50.4 37.5-51.0 % MCV 90 79-97 fL MCH 29.4 26.6-33.0 pg MCHC 32.5 31.5-35.7 g/dL RDW 13.5 11.6-15.4 % Platelets 251 150-450 x10E3/uL Neutrophils 62 Not Estab. % Lymphs 27 Not Estab. % Monocytes 8 Not Estab. % Eos 2 Not Estab. % Basos 1 Not Estab. % Neutrophils (Absolute) 5.4 1.4-7.0 x10E3/uL Lymphs (Absolute) 2.4 0.7-3.1 x10E3/uL Monocytes(Absolute) 0.7 0.1-0.9 x10E3/uL Eos (Absolute) 0.2 0.0-0.4 x10E3/uL Baso (Absolute) 0.1 0.0-0.2 x10E3/uL Immature Granulocytes 0 Not Estab. % Immature Grans (Abs) 0.0 0.0-0.1 x10E3/uL 14 Panel Urine Drug Screen Reviewed date:05/26/2025 03:09:25 PM Interpretation: Performing Lab: Notes/Report: THC neg DIANA neg MOP (OPI) neg AMP neg MET neg BAR neg BZO neg MDMA neg MTD neg OXY neg PCP neg BUP neg TCA neg FTY neg QuantiFERON-TB Gold Plus ([id number]) Reviewed date:06/03/2025 08:52:00 AM Interpretation:Normal [facility]forming Lab:[facility], [address] [facility], [place], Phone - [phone], Director - Kris Notes/Report: QuantiFERON Incubation Incubation performed. QuantiFERON-TB Gold Plus Negative Negative No response to M tuberculosis antigens detected. Infection with M tuberculosis is unlikely, but high risk individuals should be considered for additional testing (ATS/IDSA/CDC Clinical Practice Guidelines, 2017). The reference range is an Antigen minus Nil result of <0.35 IU/mL. Chemiluminescence immunoassay methodology QuantiFERON Criteria QuantiFERON-TB Gold Plus is a qualitative indirect test for M tuberculosis infection (including disease) and is intended for use in conjunction with risk assessment, radiography, and other medical and diagnostic evaluations. The QuantiFERON-TB Gold Plus result is determined by subtracting the Nil value from either TB antigen (Ag) value. The Mitogen tube serves as a control for the test. QuantiFERON TB1 Ag Value 0.08 QuantiFERON TB2 Ag Value 0.07 QuantiFERON Nil Value 0.04 QuantiFERON Mitogen Value >10.00 Breathalyzer Reviewed date:05/26/2025 03:07:49 PM Interpretation: Performing Lab: Notes/Report: FELICIA 0.000 Reason For Referral Reason Nasal pain, edema Diagnosis 1 Unspecified disorder of nose and nasal sinuses (J34.9) Referral Organization [facility] Referring Provider First Name Elsa Referring Provider Last Name Daniel Referring Provider Speciality Psychiatry Referred Provider [facility], [place], E[place] Referred Provider Specialty Ear, nose an d throat surgeon General Notes Elsa Sanchez 11/2024 05:37:23 PM > Edema, pain in nose- states has been going on nearly 1 year, reports unknown cause. Denies past imaging/diagnostics. Reports has tried OTC antihistamines, intranasal steroids, oral steroids, ibuprofen, and acetaminophen with no improvement. Please refer to ENT., Landon MARS, Gayla Hinkle 06/01/2025 01:29:46 PM >Nurse completed referral and faxed to [facility], [place], ENT. Clinical Notes [facility], [place], ENT, [address] [place] [address] , phone, fax Referral Priority Routine Medications Medication SIG (Take, Route, Frequency, Duration) Notes Start Date End Date Status Nicotine 21 MG/24HR 1 patch to skin. Transdermal Once a day, removing at bedtime 05/26/2025 Active Nicotine 7 MG/24HR 1 patch to skin Transdermal Once a day, removing at bedtime; Duration: 14 days 05/26/2025 Active Multi Vitamin - 1 tablet Orally Once a day; Duration: 30 05/26/2025 Active Melatonin 5 MG 1 tablet at bedtime as needed Orally Once a day; Duration: 30 05/26/2025 Active Sodium Chloride 0.9 % as directed Injection Not-Taking Nicotine Polacrilex 4 MG Chew 1 piece as needed for nicotine cravings Mouth/Throat up to every hour (max of 20 pieces per day); Duration: 7 days 05/26/2025 Active Fluticasone Propionate 50 MCG/ACT 2 sprays (1 spray in each nostril) Nasally Once a day; Duration: 30 06/03/2025 Active Buprenorphine HCl-Naloxone HCl 4-1 MG 1 film under the tongue and allow to dissolve Sublingual three times a day Not-Taking Folic Acid 1 MG 1 tablet Orally Once a day Active hydrOXYzine HCl 25 MG 1 tablet as needed Orally Once a day Not-Taking Venlafaxine HCl ER 37.5 MG 1 capsule with food Orally Once a day Active Adderall XR 10 MG 1 capsule in the morning Orally Once a day Not-Taking Oxymetazoline HCl 0.05 % 2 to 3 sprays e ach nostril every 10 to 12 hours Nasally Twice a day Active Cetirizine HCl 10 MG 1 tablet Orally Onc e a day; Duration: 30 days 06/03/2025 Active clonazePAM 1 MG 1 tablet Orally twic e a day Not-Taking Vitamin B1 100 MG 1 tablet Orally Once a day Active Glecaprevir-Pibrentasvir 100-40 MG 3 tablets Orally Once a day Not-Taking DULoxetine HCl 20 MG 6 capsules (total o f 120 mg) Orally Once a day Not-Taking hydrOXYzine Pamoate 25 MG 1-2 capsules O rally every 4 hours as needed for anxiety, agitation, or inability to sleep. Do not give within 4 hours of diphenhydramine.; Duration: 30 days 05/26/2025 Active Polyethylene Glycol - as directed Not-Taking Mirtazapine 45 MG 1 tablet Orally Once a day Not-Taking Multivitamin - 1 tablet Orally Once a day; Duration: 30 day(s) Active Social History Tobacco Use: Social History Observation Description Date Details (start date - stop date) Current Smoker NA - NA PRAPARE Question Answer Notes Date Completed/Updated: 05/26/2025 What is your current housing situation? I have h ousing Are you worried about losing your housing? No What is the highest level of school that you have finished? Less than a high school degree What is your current work situation? Unemployed and seeking work Has lack of transportation k ept you from medical appointments, meetings, work or from getting things needed for daily living? Yes, it has kept me from non-medical meetings, appointments, work, or getting things needed for daily living How often do you see or talk to people that you care about and feel close to? (For example: talking to friends on the phone, visiting friends or family, going to jewish or club meetings) More than 5 times a week How stressed are you? Stress is when someone feels tense, nervous, anxious, or can\t sleep at night because their mind is troubled Not at all In the past year have you sp ent more than 2 nights in a row in a fpc, usp, fpc center, or juvenile correctional facility? Yes What was your release date? 05/21/2025 Are you a refugee? No What country are you from? [place] Do you feel physically and e motionally safe where you currently live? Yes In the past year, have you b een afraid of your partner or ex-partner? No PRAPARE Score: 7 Tobacco Control (Standard) Question Answer Notes Tobacco use: Current smoker How often do you smoke cigarettes? Every day How many cigarettes a day do you smoke? 11-20 Problems Problem Type SNOMED Code ICD Code Onset Dates Problem Status W/U Status Risk Notes Problem Physical examination, complete (20741066) Physical exam (Z00.00) Active confirmed Problem Seasonal allergy (827154954) Seasonal allergies (J30.2) Active confirmed Problem Tobacco user (255768458) Nicotine dependence with current use (F17.200) Active confirmed Vital Signs Heart Rate 70 /min 06/03/2025 Temperature 98.9 degrees Fahrenheit 05/26/2025 Respiratory Rate 16 /min 06/03/2025 Blood pressure diastolic 72 mm Hg 06/03/2025 Oximetry 99 % 06/03/2025 Height 68.25 in 06/03/2025 Blood pressure systolic 110 mm Hg 06/03/2025 Weight 164.8 lbs 06/03/2025 BMI 24.87 kg/m2 06/03/2025 Encounters Encounter Location Date Provider Diagnosis [facility] [place] [address] 06/03/2025 Sneha Fernando Seasonal allergies J30.2 ; Adult general medical exam Z00.00 and Nicotine dependence with current use F17.[address] [address] [place] [address] 05/26/2025 Elsa Sanchez Physical exam Z00.00 and Unspecified disorder of nose and nasal sinuses J34.9 [address] [address] [place] [address] 05/26/2025 Gaviota Guzmán [address] [place] [address] 05/26/2025 Jose Magana [address] [address] 06/01/2025 Elsa Sanchez Assessments Encounter Date Diagnosis (ICD Code) Assessment Notes Treatment Notes Treatment Clinical Notes Section Notes 05/26/2025 Unspecified disorder of nose and nasal sinuses (ICD-10 - J34.9) Continue at this time. Email sent 05/26/[address] Magana to discuss options from [facility], referral placed to ENT- tylenol/ibuprofen PRN 05/26/2025 Physical exam (ICD-10 - Z00.00) Admit to the Mental Health/Crisis Residential Unit and initiate standing/protocol orders: The following PRN medications may be self-administered by patients under the supervision of approved staff or administered by nursing staff: Ibuprofen 200mg, 2-4 tablets by mouth (with food) every 6 hours as needed for pain (unless on lithium). (NOTE: Ibuprofen and acetaminophen may be given together, but alternating is recommended for continuous pain relief. Guaifenesin 400 mg, 1 tablet by mouth every four hours as needed for cough and chest congestion (take with large glass of water). Loratadine 10 mg, 1 tablet by mouth daily as needed for allergies, watery itchy eyes, or sinus drainage. Throat Lozenges, up to 4 tablets by mouth every three to four hours as needed for sore throat. Antacid tablets, 1-2 tablets by mouth every one to two hours as needed for indigestion or heart burn. If the client prefers liquid, could use: Liquid Antacid : 1 ounce by mouth up to four times daily as needed for indigestion or heartburn Omeprazole 20mg, 1 capsule by mouth once daily for 14 days for frequent heartburn (frequent heartburn is more than 2 episodes per week). Do not exceed 14 days. Do not give to client already taking a proton-pump inhibitor: esomeprazole (Nexium), lansoprazole (Prevacid), pantoprazole (Protonix), rabeprazole (Aciphex), dexlansoprazole (Dexilant) Zofran ODT disintegrating (under the tongue) 4 mg, 1-2 tablets every 8 hours as needed for nausea/vomiting. Milk of Magnesia (MOM): 1 ounce (30 milliliters) by mouth every day as needed for constipation. OR Miralax: Stir and fully dissolve 17 grams (1 packet or 1 capful to measured line) in any 4 to 8 ounces of beverage then drink once daily for constipation. Do not use for more than 7 days. OR Docusate 100 mg, 1 capsule twice daily as needed for constipation Hydrocortisone 1% Cream, apply topically (to the skin) to the affected area up to three times daily as needed for itching or inflammation (avoid eyes and genitals). 2% Antifungal Cream, apply topically (to the skin) as directed as needed to affected areas for athlete's foot or jock itch. Triple Antibiotic Ointment, apply topically (to the skin) up to three times daily as needed for minor cuts and scrapes. Carmex or Chapstick, apply topically (to the skin) as needed for chapped lips and skin. Orajel, apply to affected areas as needed for mouth or tooth pain. Lubricating Eye Drops, instill 1-2 drops to the affected eye(s) as needed for dry/irritated eye(s). Hemorrhoid medications, apply to affected area according to directions as needed for hemorrhoid discomfort and itch. Nix (Permethrin 1%) cream 2 ounces, apply topically (to the skin) as directed as needed for head lice. Sunscreen 30 SPF, Apply to exposed skin prior to exposure to sun. The following PRN medications must be approved by nursing staff before self-administration by patients: Diphenhydramine 25 mg, 2 tablets by mouth every 4 hours as needed for allergic reaction or itchy rash. Caution: Do not use hydroxyzine within 4 hours of diphenhydramine and vice versa. Loperamide 2 mg capsules, may give two capsules by mouth for the initial dose, followed by one capsule up to 3 times a day as needed for diarrhea. Acetaminophen 500 mg, 1 - 2 tablets by mouth every six hours as needed for pain. (NOTE: Ibuprofen and acetaminophen may be given together, but alternating is recommended for continuous pain relief). Oxygen-May administer oxygen 2L/min via nasal cannula if O2 saturation is less than 92%, AND client complains of shortness of breath. Target O2 saturation is 94-98%. Caution: Remember too much oxygen can be detrimental to a client with COPD. Oxygen is a drug and should be delivered by trained staff only. Nurses may remove superficial splinters and sutures from skin lacerations. May apply gauze or bandages to any weeping wounds. Contact nursing if there is pus, a foul odor, increased pain/redness/swelli ng, or if soaking through bandages. 06/03/2025 Seasonal allergies (ICD-10 - J30.2) 06/03/2025 Adult general medical exam (ICD-10 - Z00.00) 06/03/2025 Nicotine dependence with current use (ICD-10 - F17.200) 05/26/2025 Other Clinician met [facility] client to assess needs for residential services. Clinician gathered information regarding historical presentation of mental health and substance use symptoms including withdrawal, HIV Risk assessment, psychiatric hospitalization history and presenting concern. Clinician conducted PHQ9 and CSSRS assessments as well as social drivers of health screening for the purposes of identifying additional service needs. Clinician met with client to assess needs for residential services. Clinician gathered information regarding historical presentation of mental health and substance use symptoms including withdrawal, HIV Risk assessment, psychiatric hospitalization history and presenting concern. Clinician conducted PHQ9 and CSSRS assessments as well as social drivers of health screening for the purposes of identifying additional service needs. Plan Of Treatment Future Test Test Name Order Date Hemoglobin A1c* 06/03/2025 TSH+Free T4* 06/03/2025 Lipid Panel* 06/03/2025 Insurance Providers Payer Name Payer Address Payer Phone Subscriber Number Group Number Insured Name Patient Relationship to Insured Coverage Start Date Coverage End Date [employer] [address] [place] [address] [id number] Stoney Marin Self - patient is the insured 5 [employer] [address] [place] [address] [id number] Stoney Marin Self - patient is the insured 5 Medical (General) History Medical History History ICD Code crohn's disease Surgical History Surgery Date(Month/Year) Ear surgery Hospitalization History Reason Date(Month/Year) [facility] 04/2025
--- OUTSIDE RECORDS SUMMARY | 2025-06-03 23:54 | XMS_ITS ---
Author Organization [facility] Address [address] [facility] [address] [place] [address] Care Team Providers Care Pest Controller Name Role Phone Constance Oneill Primary Care Provider [phone] Juany Fagan [phone] REASON FOR VISIT Phone Intake Encounters Encounter Location Date Provider Diagnosis [facility] [address] [place] [address] 06/09/2024 Juany Fagan Plan Of Treatment No Information Progress Notes * Stoney MARIN RDOB:2000 (24 yo M)Acc No.[id number]:06/09/2024 UNLOCKED PROGRESS NOTE Progress Note Patient: Stoney KRAUSE Provider: VANE Hood :2000 A ge:23 Y S ex:Male Date:06/09/2024 Address:[address] [place], [place] [address] Pcp:Constance Oneill Subjective: * Chief Complaints: * 1 . Phone Intake. * Medical History: Objective: * Vitals: Assessment: Plan: * Treatment: * Billing Information: * Visit Code: * Procedure Codes: * Electronic signature of VANE Michelle cca on 06/03/2025 at 07:52 AM CDT Sign off status: Pending Visit Status: C ANC (Cancelled) * Provider: VANE Hood Date: 0 06/09/2024 Generated for Celia roger/Warner/Lisset on: 0 06/03/2025 07:52 AM CDT
--- OUTSIDE RECORDS SUMMARY | 2025-06-03 23:54 | XMS_ITS | Data Portability ---
Author Organization [facility]MyeshaCharl[facility] Address [address] [place] [address] Assessment No assessment recorded. Plan of Treatment Reminders Order Date Submit Date Provider Last Modified By Organization Details Last Modified Time Details Appointments NEW PATIENT 15 2024 09:30A Triny Briones MD Not available Not available Not available Lab TSH + free T4, serum 2024 025 SANJAY [facility] (Centralized Electronic Ordering - All Locations), Patient Can Go To The Location Of Their Choice, 01/15/2025 10:10:34 CMP, serum or plasma 2024 025 SANJAY [facility] (Centralized Electronic Ordering - All Locations), Patient Can Go To The Location Of Their Choice, 01/15/2025 10:10:36 CBC w/ auto diff 2024 025 SANJAY [facility] (Centralized Electronic Ordering - All Locations), Patient Can Go To The Location Of Their Choice, 01/15/2025 10:10:38 C reactive protein, QN, serum or plasma 2024 025 SANJAY [facility] (Centralized Electronic Ordering - All Locations), Patient Can Go To The Location Of Their Choice, 01/15/2025 10:10:40 iron + TIBC + ferritin, serum 2024 025 SANJAY [facility] (Centralized Electronic Ordering - All Locations), Patient Can Go To The Location Of Their Choice, 01/15/2025 10:10:41 cobalamin and folate panel, serum 2024 025 SANJAY [facility] (Centralized Electronic Ordering - All Locations), Patient Can Go To The Location Of Their Choice, 01/15/2025 10:10:37 calprotec tin, stool 2024 025 [email or web address] [facility] (Centralized Electronic Ordering - All Locations), Patient Can Go To The Location Of Their Choice, [id number] 03/02/2025 17:52:48 Referral otolaryng ologist referral 2024 025 [email or web address] [facility], [address] [place] [address] Ctr , [address], [place], [address], 06/03/2025 10:57:51 gastroent erologist referral 2024 025 [facility], [address] [place] [address] Ctr , [address], [place], [address], 01/16/2025 17:13:39 Procedures None recorded. Surgeries None recorded. Imaging CT, sinuses, w/o contrast 2024 025 jatin Stevens (Rad), [address] [place] [address] , [address], [place], [address], 03/18/2025 10:46:10 Medication Orders sertralin e 50 mg tablet 2024 025 [facility] [address], [address] [place], [address], 01/14/2025 15:06:54 Strattera 40 mg capsule 2024 025 [facility] [address], [address] [place], [address], 01/14/2025 15:12:48 Patient TargetsNo targets recorded. Patient InstructionsNo instructions recorded. 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) [address] [facility], [place], [address], 01/15/2025 10:10:34 01/14/20 25 01/15/2025 TSH+F REE T4 T4,free(dire ct) 1.07 NG/dL 0.82-1 .77 Not Available [facility] ([facility]) [address] [facility] [place], [address], 01/15/2025 10:10:34 01/14/20 25 01/15/2025 COMP. METAB OLIC PANEL (14) glucose 94 mg/dL 70-99 Not Available [facility] ([facility]) [address] [facility], [place], [address], 01/15/2025 10:10:36 01/14/20 25 01/15/2025 COMP. METAB OLIC PANEL (14) BUN 17 mg/dL 6-20 Not Available [facility] ([facility]) [address] [facility] [place], [address], 01/15/2025 10:10:36 01/14/20 25 01/15/2025 COMP. METAB OLIC PANEL (14) creatinine 0.76 mg/dL 0.76-1 .27 Not Available [facility] ([facility]) [address] [facility] [place], [address], 01/15/2025 10:10:36 01/14/20 25 01/15/2025 COMP. METAB OLIC PANEL (14) eGFR 130 mL/mi n/1.7 3 >59 Not Available [facility] ([facility]) [address] [facility] [place], [address], 01/15/2025 10:10:36 01/14/20 25 01/15/2025 COMP. METAB OLIC PANEL (14) BUN/creatini ne ratio 22 9-20 above high normal Not Available [facility] ([facility]) [address] [place], [address], 01/15/2025 10:10:36 01/14/20 25 01/15/2025 COMP. METAB OLIC PANEL (14) sodium 141 mmol/ L 134-14 4 Not Available [facility] ([facility]) [address] [place], [address], 01/15/2025 10:10:36 01/14/20 25 01/15/2025 COMP. METAB OLIC PANEL (14) potassium 4.5 mmol/ L 3.5-5. 2 Not Available [facility] ([facility]) [address] [facility] [place], [address], 01/15/2025 10:10:36 01/14/20 25 01/15/2025 COMP. METAB OLIC PANEL (14) chloride 103 mmol/ L 96-106 Not Available [facility] ([facility]) [address] [place], [address], 01/15/2025 10:10:36 01/14/20 25 01/15/2025 COMP. METAB OLIC PANEL (14) carbon dioxide, total 23 mmol/ L 20-29 Not Available [facility] ([facility]) [address] [place], [address], 01/15/2025 10:10:36 01/14/20 25 01/15/2025 COMP. METAB OLIC PANEL (14) calcium 9.5 mg/dL 8.7-10 .2 Not Available [facility] ([facility]) [address] [place], [address], 01/15/2025 10:10:36 01/14/20 25 01/15/2025 COMP. METAB OLIC PANEL (14) protein, total 7.0 g/dL 6.0-8. 5 Not Available [facility] ([facility]) [address] [facility] [place], [address], 01/15/2025 10:10:36 01/14/20 25 01/15/2025 COMP. METAB OLIC PANEL (14) albumin 4.7 g/dL 4.3-5. 2 Not Available [facility] ([facility]) [address] [facility] [place], [address], 01/15/2025 10:10:36 01/14/20 25 01/15/2025 COMP. METAB OLIC PANEL (14) globulin, total 2.3 g/dL 1.5-4. 5 Not Available [facility] ([facility]) [address] [facility] [place], [address], 01/15/2025 10:10:36 01/14/20 25 01/15/2025 COMP. METAB OLIC PANEL (14) bilirubin, total <0.2 mg/dL 0.0-1. 2 Not Available [facility] ([facility]) [address] [facility] [place], [address], 01/15/2025 10:10:36 01/14/20 25 01/15/2025 COMP. METAB OLIC PANEL (14) alkaline phosphatase 78 IU/L 44-121 Not Available [facility] ([facility]) [address] [facility] [place], [address], 01/15/2025 10:10:36 01/14/20 25 01/15/2025 COMP. METAB OLIC PANEL (14) AST (SGOT) 24 IU/L 0-40 Not Available [facility] ([facility]) [address] [place], [address], 01/15/2025 10:10:36 01/14/20 25 01/15/2025 COMP. METAB OLIC PANEL (14) ALT (SGPT) 49 IU/L 0-44 above high normal Not Available [facility] ([facility]) [address] [facility] [place], [address], 01/15/2025 10:10:36 01/14/20 25 01/15/2025 VITAM IN B12 AND FOLAT E vitamin B12 772 pg/mL 232-12 45 Not Available [facility] ([facility]) [address] [facility], [place], [address], 01/15/2025 10:10:37 01/14/20 25 01/15/2025 VITAM IN B12 AND FOLAT E folate (folic acid), serum 15.9 NG/mL >3.0 A serum folat e radha ntrat ion of less than 3.1 ng/mL is consi dered to repre sent clini omar defic iency . Not Available [facility] ([facility]) [address] [facility], [place], [address], 01/15/2025 10:10:37 01/14/20 25 01/15/2025 CBC WITH DIFFE RENTI AL/PL ATELE T WBC 8.0 x10e3 /uL 3.4-10 .8 Not Available [facility] ([facility]) [address] [facility], [place], [address], 01/15/2025 10:10:38 01/14/20 25 01/15/2025 CBC WITH DIFFE RENTI AL/PL ATELE T RBC 5.29 x10e6 /uL 4.14-5 .80 Not Available [facility] ([facility]) [address] [facility], [place], [address], 01/15/2025 10:10:38 01/14/20 25 01/15/2025 CBC WITH DIFFE RENTI AL/PL ATELE T hemoglobin 15.7 g/dL 13.0-1 7.7 Not Available [facility] ([facility]) [address] [place], [address], 01/15/2025 10:10:38 01/14/20 25 01/15/2025 CBC WITH DIFFE RENTI AL/PL ATELE T hematocrit 47.1 % 37.5-5 1.0 Not Available [facility] ([facility]) [address] [place], [address], 01/15/2025 10:10:38 01/14/20 25 01/15/2025 CBC WITH DIFFE RENTI AL/PL ATELE T MCV 89 fL 79-97 Not Available [facility] ([facility]) [address] [place], [address], 01/15/2025 10:10:38 01/14/20 25 01/15/2025 CBC WITH DIFFE RENTI AL/PL ATELE T MCH 29.7 pg 26.6-3 3.0 Not Available [facility] ([facility]) [address] [facility], [place], [address], 01/15/2025 10:10:38 01/14/20 25 01/15/2025 CBC WITH DIFFE RENTI AL/PL ATELE T MCHC 33.3 g/dL 31.5-3 5.7 Not Available [facility] ([facility]) [address] [place], [address], 01/15/2025 10:10:38 01/14/20 25 01/15/2025 CBC WITH DIFFE RENTI AL/PL ATELE T RDW 13.6 % 11.6-1 5.4 Not Available [facility] ([facility]) [address] [place], [address], 01/15/2025 10:10:38 01/14/20 25 01/15/2025 CBC WITH DIFFE RENTI AL/PL ATELE T platelets 242 x10e3 /uL 150-45 0 Not Available [facility] ([facility]) [address] [place], [address], 01/15/2025 10:10:38 01/14/20 25 01/15/2025 CBC WITH DIFFE RENTI AL/PL ATELE T neutrophils 56 % notest ab. Not Available [facility] ([facility]) [address] [facility], [place], [address], 01/15/2025 10:10:38 01/14/20 25 01/15/2025 CBC WITH DIFFE RENTI AL/PL ATELE T lymphs 30 % notest ab. Not Available [facility] ([facility]) [address] [facility], [place], [address], 01/15/2025 10:10:38 01/14/20 25 01/15/2025 CBC WITH DIFFE RENTI AL/PL ATELE T monocytes 9 % notest ab. Not Available [facility] ([facility]) [address] [facility], [place], [address], 01/15/2025 10:10:38 01/14/20 25 01/15/2025 CBC WITH DIFFE RENTI AL/PL ATELE T eos 4 % notest ab. Not Available [facility] ([facility]) [address] [facility], [place], [address], 01/15/2025 10:10:38 01/14/20 25 01/15/2025 CBC WITH DIFFE RENTI AL/PL ATELE T basos 1 % notest ab. Not Available [facility] ([facility]) [address] [facility], [place], [address], 01/15/2025 10:10:38 01/14/20 25 01/15/2025 CBC WITH DIFFE RENTI AL/PL ATELE T neutrophils (absolute) 4.5 x10e3 /uL 1.4-7. 0 Not Available [facility] ([facility]) [address] [facility], [place], [address], 01/15/2025 10:10:38 01/14/20 25 01/15/2025 CBC WITH DIFFE RENTI AL/PL ATELE T lymphs (absolute) 2.4 x10e3 /uL 0.7-3. 1 Not Available [facility] ([facility]) [address] [facility], [place], [address], 01/15/2025 10:10:38 01/14/20 25 01/15/2025 CBC WITH DIFFE RENTI AL/PL ATELE T monocytes(ab solute) 0.7 x10e3 /uL 0.1-0. 9 Not Available [facility] ([facility]) [address] [facility], [place], [address], 01/15/2025 10:10:38 01/14/20 25 01/15/2025 CBC WITH DIFFE RENTI AL/PL ATELE T eos (absolute) 0.3 x10e3 /uL 0.0-0. 4 Not Available [facility] ([facility]) [address] [facility], [place], [address], 01/15/2025 10:10:38 01/14/20 25 01/15/2025 CBC WITH DIFFE RENTI AL/PL ATELE T baso (absolute) 0.1 x10e3 /uL 0.0-0. 2 Not Available [facility] ([facility]) [address] [facility], [place], [address], 01/15/2025 10:10:38 01/14/20 25 01/15/2025 CBC WITH DIFFE RENTI AL/PL ATELE T immature granulocytes 0 % notest ab. Not Available [facility] ([facility]) [address] [facility], [place], [address], 01/15/2025 10:10:38 01/14/20 25 01/15/2025 CBC WITH DIFFE RENTI AL/PL ATELE T immature grans (abs) 0.0 x10e3 /uL 0.0-0. 1 Not Available [facility] ([facility]) [address] [facility], [place], [address], 01/15/2025 10:10:38 01/14/20 25 01/15/2025 C-MARIA DOLORES CTIVE PROTE IN, QUANT C-reactive protein, quant <1 mg/L 0-10 Not Available [facility] ([facility]) [address] [place], [address], 01/15/2025 10:10:40 01/14/20 25 01/15/2025 FE+TI BC+FE R iron bind.cap.(TI BC) 339 ug/dL 250-45 0 Not Available [facility] ([facility]) [address] [facility], [place], [address], 01/15/2025 10:10:41 01/14/20 25 01/15/2025 FE+TI BC+FE R UIBC 245 ug/dL 111-34 3 Not Available [facility] ([facility]) [address] [facility], [place], [address], 01/15/2025 10:10:41 01/14/20 25 01/15/2025 FE+TI BC+FE R iron 94 ug/dL 38-169 Not Available [facility] ([facility]) [address] [place], [address], 01/15/2025 10:10:41 01/14/20 25 01/15/2025 FE+TI BC+FE R iron saturation 28 % 15-55 Not Available [facility] ([facility]) [address] [place], [address], 01/15/2025 10:10:41 01/14/20 25 01/15/2025 FE+TI BC+FE R ferritin 41 NG/mL 30-400 Not Available [facility] ([facility]) [address] [place], [address], 01/15/2025 10:10:41 01/20/20 25 01/13/2025 imagi ng/di agnos tic resul t No observ ation record ed. [email or web address] [address] , [place], [address], 01/22/2025 11:07:25 01/20/20 25 01/13/2025 imagi ng/di kevenos tic resul t No observ ation record ed. [email or web address] Shanel [place] [address] [place], [address], 01/22/2025 11:07:42 Result Notes None recorded. Procedures Surgical History Date Name Laterality Status Provider Name and Address Organization Details Recorded Time colonoscopy completed Melva Justice MA [facility] 01/14/2025 14:20:17 Imaging Results None recorded. Procedure Notes None recorded. Medical Equipment None Reported. Allergies No known drug allergies Medications Name Sig Start Date Stop Date Status Note LastModified by Organization Details LastModified Time amoxicillin 500 mg capsule TAKE 1 CAPSULE BY MOUTH THREE TIMES DAILY 01/14 completed Not Available Not Available Not Available prednisone 10 mg tablet 01/14 completed Not Available Not Available Not Available divalproex 250 mg tablet,meche yed release TAKE 1 (ONE) TABLET BY MOUTH 3 TIMES DAILY REASONS MOOD STABILIZA TION 01/14 completed Not Available Not Available Not Available azithromyci n 250 mg tablet TAKE 2 TABLET BY MOUTH DAILY ON DAY 1 THEN TAKE 1 BY MOUTH DAILY TILL GONE 01/14 completed Not Available Not Available Not Available prednisone 20 mg tablet TAKE 2 TABLETS BY MOUTH ONCE DAILY FOR 5 DAYS 01/14 completed Not Available Not Available Not Available penicillin V potassium 500 mg tablet TAKE 1 TABLET BY ORAL ROUTE EVERY 6 HOURS FOR 10 DAYS 01/14 completed Not Available Not Available Not Available omeprazole 40 mg capsule,del ayed release TAKE 1 CAPSULE BY MOUTH ONCE DAILY 01/14 completed Not Available Not Available Not Available amoxicillin 875 mg tablet TK 1 T PO Q 12 H FOR 10 DAYS 01/14 completed Not Available Not Available Not Available omeprazole 10 mg capsule,del ayed release TAKE 1 CAPSULE BY MOUTH EVERY DAY 01/14 completed Not Available Not Available Not Available chlordiazep oxide 25 mg capsule USE DIRECTED 01/14 completed Not Available Not Available Not Available nicotine 21 mg/24 hr daily transdermal patch APPLY 1 (ONE) PATCH TO SKIN ONCE DAILY REASONS NICOTINE ADDICTION 01/14 completed Not Available Not Available Not Available mercaptopur ine 50 mg tablet TAKE 1 AND 1/2 TABLETS BY MOUTH ONCE DAILY 01/14 completed Not Available Not Available Not Available montelukast 10 mg tablet TAKE 1 TABLET BY MOUTH DAILY 01/14 completed Not Available Not Available Not Available budesonide DR - ER 3 mg capsule,del ayed,extend ed release TAKE 3 CAPSULES BY MOUTH ONCE DAILY TAKE FOR 8 WEEKS. AFTER THAT TAKE 2 CAPSULES FOR ANOTHER 4 WEEKS, THEN STOP. 01/14 completed Not Available Not Available Not Available sertraline 50 mg tablet Take 1 tablet every day by oral route. 2024 active Not Available Not Available Not Avai lable amoxicillin 875 mg-potassiu m clavulanate 125 mg tablet TAKE 1 TABLET BY MOUTH EVERY 12 HOURS DIRECTED FOR 10 DAYS active Not Available Not Available No t Available Strattera 40 mg capsule Take 1 capsule every day by oral route. 2024 active Not Available Not Available Not Avai lable ciprofloxac in 0.3 %-dexametha sone 0.1 % ear drops,suspe nsion 01/14 completed Not Available Not Available Not Available Vitals Date Recorded Body height Body mass index (BMI) Body weight Body temperature Oxygen saturation Oxygen saturation in Arterial blood by Pulse oximetry Heart rate Systolic And Diastolic Provider Name and Address Organization Details Last Updated DateTime 5 177.8 cm 23.8 kg/m2 08405.0 3 g 97.9 [degF] 97 % 97 % 82 /min 100/64 mm[Hg] Melva Justice [place] [facility] 14:32:00 Social History Question Answer Notes LastModified by Organizat ion Details LastModified Time Tobacco Smoking Status Current Every Day Smoker Melva Justice MA null, [place] [facility] 01/14/2025 14:19:57 What Is Your Level Of Caffeine Consumption? Heavy Information not available 01/14/2025 What Type Of Diet Are You Following? REGULAR Information not available 01/14/2025 What Was The Date Of Your Most Recent Tobacco Screening? 01/14/2025 Information not available 01/14/2025 What Is Your Relationship Status? Single Information not available 01/14/2025 How Much Tobacco Do You Smoke? 0.25 PPD Information not available 01/14/2025 Has Tobacco Cessation Counseling Been Provided? Yes Information not available 01/14/2025 On What Date Was Tobacco Cessation Counseling Provided? 01/14/2025 Information not available 01/14/2025 Sex: Unknown Functional Status Question Answer Note LastModified by Organizat ion Details LastModified Time Do you use any illicit or recreational drugs? No Information not available 01/14/2025 Do you or have you ever used any other forms of tobacco or nicotine? Yes Information not available 01/14/2025 What is your level of alcohol consumption? None former Information not available 01/14/2025 Do you or have you ever used smokeless tobacco? Never used smokeless tobacco Information not available 01/14/2025 Are you currently employed? No Information not available 01/14/2025 Do you or have you ever used e-cigarettes or vape? Current user of electronic cigarettes Information not available 01/14/2025 What is your exercise level? Occasional Information not available 01/14/2025 Mental Status None recorded. Family History Relationship Description Onset Age of this Age Resolved Age Notes LastModified by Organization Details LastModified Time Father No current problems or disability [email or web address] Not available 01/14 14:29:39 Mother No current problems or disability [email or web address] Not available 01/14 14:29:39 Medical History Condition Response Other Headaches Y Asthma Y Past Encounters Encounter ID Performer Location Encounter Start Date Encounter Closed Date Diagnosis/Indication Diagnosis SNOMED-CT Code Diagnosis ICD10 Code Diagnosis Note [id number] MD Rosemarie Gibbs [facility] [address] [place] [address] 01/14/2025 13:54:19 01/14/2025 15:16:10 Crohn's disease 43683461 K50.90 Patient referred to GI.Labs ordered to further and evaluate including CRP level and stool calprotect in Attention deficit hyperactivity disorder 014748590 F90.9 We will start Strattera to address attention issues.Pot ential side effects discussed. Anxiety 50043823 F41.9 We will start sertraline which has worked well for him in the past.Patie nt encouraged to consider counseling to learn coping mechanisms to manage anxiety and to regulate mood. Be physically active. Getting 30 minutes of exercise each day is good for your body and your mind. Begin slowly if it is hard for you to get started, If you already exercise, keep it up. Plan something pleasant for yourself every day. Include activities that you have enjoyed in the past. Get enough sleep. Eat a balanced diet. If you do not feel hungry, eat small snacks rather than large meals. Do not drink alcohol, use illegal drugs, or take medicines that your doctor has not prescribed for you. They may interfere with your treatment. Spend time with family and friends. It may help to speak openly about your depression with people you trust. Take your medicines exactly as prescribed . Do not make major life decisions while you are depressed. Depression may change the way you think. You will be able to make better decisions after you feel better. Think positively . Challenge negative thoughts with statements such as I am hopeful; Things will get better; and I can ask for the help I need. Write down these statements and read them often, even if you don't believe them yet. Be patient with yourself. It took time for your depression to develop, and it will take time for your symptoms to improve. Do not take on too much or be too hard on yourself. Learn all you can about depression from written and online materials. Check out behavioral health classes to learn more about dealing with depression .Verbal contract made with patient today.If Suicidal or homicidal thoughts develop patient will present to the ER immediatel y.Keep the numbers for these national suicide hotlines: 8-440-553- TALK (1-487-050 -5075), [facility] Crisis Line 0-910-509- 0659 and National Suicidal hotline at 742 If you or someone you know talks about suicide or feeling hopeless, get help right away. Nasal obst ruction present 728736702 J34.89 CT scan of the sinuses ordered.EN T referral ordered. Health Concerns Section Related Observation LastModified by Organization Detai ls LastModified Time None Recorded Concern Status LastModified by Organization Details LastModified Time None Recorded Advance Directives Directive None Recorded Payers Insurance Date Sequence Insurance Name Policy Number Policy Song Covered Member ID Song Member ID Guarantor Name 01/14/2025 1 [facility] (MEDICAID HMO) [id number] Stoney Marin [id number] Stoney Marin Notes Date Note Type Note Provider Name and Address Organization Details Recorded Time 01/14/2025 text/html [facility] at 19 [facility] years prior to diagnosis, patient was having blood in his stools.Patient was going to be prescribed medication including infusions to treat, however he began active addiction and never followed up with GI.He reports constant abdominal discomfortPatient has had 10 solid bowel movements/ day ETOH dependency.Patient started drinking at 19 years - 5-7 days/ week.Patient was drinking 2/5 per day of hard liquor.No seizures or tremors with withdrawing.He has not drank ETOH in 16 days when [facility]. Worsening AnxietyPatient states his mind is always racing. States he is constantly fidgeting and restless. ADHDPatient reports it is very difficult for him to focus in group meetings. He reports he needs to frequently get up and move around. Can not concentrate when people are talking. Patient reports for the past 5 years he has had nasal congestion present. He denies sinus drainage. He does have facial pressure intermittently. He reports a deviated septum which is becoming more and more bothersome to him. States he can not breathe through his nose at all.Denies injury or trauma. YANI LOOMIS Attn: Accounting,[address] [facility], [place], [address], [facility] - [facility] 01/14/2025 17:57:09
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
--- OUTSIDE RECORDS SUMMARY | 2025-06-03 23:54 | XMS_ITS ---
Author Organization [facility] Address [address] [facility] [address] [place] [address] Care Team Providers Care Supervisor Plate Pasting Name Role Phone Constance Oneill Primary Care Provider Fiordaliza Hassan [phone] REASON FOR VISIT Ph Intake Encounters Encounter Location Date Provider Diagnosis [facility] [address] [place] [address] 06/23/2024 Fiordaliza Hassan Plan Of Treatment No Information Progress Notes * TOMAS Stoney RDOB:2000 (24 yo M)Acc No.[id number]:06/23/2024 UNLOCKED PROGRESS NOTE Progress Note Patient: tSoney KRAUSE Provider: Nikki Hassan NP :2000 A ge:23 Y S ex:Male Date:06/23/2024 Address[address] [facility] Pcp:Constance Oneill Subjective: * Chief Complaints: * 1 . Ph Intake. * Medical History: Objective: * Vitals: Assessment: Plan: * Treatment: * Billing Information: * Visit Code: * Procedure Codes: * Electronic signature of ELISEO Montague on 06/03/2025 at 07:52 AM CDT Sign off status: Pending Visit Status: N /S (No-Show) * Provider: Nikki Hassan NP Date: 06/23/2024 Generated for Celia roger/Warner/Linaitting on: 0 06/03/2025 07:52 AM CDT
--- OUTSIDE RECORDS SUMMARY | 2025-06-03 23:55 | XMS_ITS | Data Portability ---
Author Organization [facility] Address [address] [place] [address] Assessment No assessment recorded. Plan of Treatment Reminders Order Date Submit Date Provider Last Modified By Organization Details Last Modified Time Details Appointments None recorded. Lab LATA + rf (antinuclea r antibodies + rheumatoid factor), quantitativ e, serum 2022 023 [facility] (Lab), [address], [place], [address], 4 05:01:37 C-reactive protein, quantitativ e, serum or plasma 2022 023 [facility] (Lab), [address], [place], [address], 4 05:01:37 ESR (erythrocyt e sedimentati on rate), blood 2022 023 [facility] (Lab), [address], [place], [address], 4 05:01:38 Referral None recorded. Procedures None recorded. Surgeries None recorded. Imaging None recorded. Medication Orders hydroxyzine HCl 25 mg tablet [address] [facility], [address] [place], [address], 20:18:09 Lamictal 25 mg tablet [address] [facility], [address] [place], [address], 4 20:18:09 Xanax 0.5 mg tablet [address] [facility], [address] [place], [address], 20:18:09 Patient TargetsNo targets recorded. Patient Instructions Encounter Date Encounter Id Patient Instructions Last Modified By Organization Details Last Modified Time 09/04/2023 [id number] Follow-up follow-up with your counselor and psychiatrist in 2 to 5 days Avoid alcohol Return to the emergency department if worsening symptoms Make sure you: Understand these instructions, will watch your condition, will get help right away if you are not doing well or get worse. Please return to the emergency room if your condition worsens. 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 [] yes, [] no Was the call back program explained to you? [] yes, [] no What telephone number can we reach you at? What is the preferred time to call? Nurse use only: All orders completed [] yes, [] no Labs/ Xrays completed [] yes, [] no Vitals re-checked [] yes, [] no Physician notified of abnormal vitals [] yes, [] no [email or web address] Not available 09/05/2023 10:37:20 03/23/2024 [id number] Discussed with patient importance of going to rehab and getting sober and staying sober. Patient was seen in our emergency department today and he is medically cleared for detox. Make sure you: Understand these instructions, will watch your condition, will get help right away if you are not doing well or get worse. Please return to the emergency room if your condition worsens. 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 [] yes, [] no Was the call back program explained to you? [] yes, [] no What telephone number can we reach you at? What is the preferred time to call? Nurse use only: All orders completed [] yes, [] no Labs/ Xrays completed [] yes, [] no Vitals re-checked [] yes, [] no Physician notified of abnormal vitals [] yes, [] no [email or web address] Not available 03/23/2024 19:42:36 Hospital Discharge Instructions Patient Instructions Resume home medications as previously taken. Follow safety plan provided by [facility] . Follow up with psychiatric provider at [facility] Follow-up follow-up with your counselor and psychiatrist in 2 to 5 days Avoid alcohol Return to the emergency department if worsening symptoms Make sure you: Understand these instructions, will watch your condition, will get help right away if you are not doing well or get worse. Please return to the emergency room if your condition worsens. 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 [] yes, [] no Was the call back program explained to you? [] yes, [] no What telephone number can we reach you at? What is the preferred time to call? Nurse use only: All orders completed [] yes, [] no Labs/ Xrays completed [] yes, [] no Vitals re-checked [] yes, [] no Physician notified of abnormal vitals [] yes, [] no Discussed with patient importance of going to rehab and getting sober and staying sober. Patient was seen in our emergency department today and he is medically cleared for detox. Make sure you: Understand these instructions, will watch your condition, will get help right away if you are not doing well or get worse. Please return to the emergency room if your condition worsens. 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 [] yes, [] no Was the call back program explained to you? [] yes, [] no What telephone number can we reach you at? What is the preferred time to call? Nurse use only: All orders completed [] yes, [] no Labs/ Xrays completed [] yes, [] no Vitals re-checked [] yes, [] no Physician notified of abnormal vitals [] yes, [] no Patient Goals None recorded. Results Created Date Observation Date Name Description Value Unit Range Abnormal Flag Note LastModifiedBy Organization Detail LastModifiedTime 08/08/2008/08/2023 SARS- CoV-2 (COVI D-19) RNA [Pres ence] in Speci men by CARLOS ALBERTO with probe detec tion [id number] ID MOLECULAR Negati ve NEGATI VE This test metho d utili zes isoth ermal nucle ic acid ampli ficat ion techn ology . Not Available [facility] (Lab) [address], [place], [address], Not Available 08/08/20 23 08/08/2023 Influ manish virus A and B RNA [Iden tifie r] in Speci men by CARLOS ALBERTO with probe detec tion FLU A PCR Negati ve NEGATI VE Not Available [facility] (Lab) [address], [place], [address], Not Available 08/08/20 23 08/08/2023 Influ manish virus A and B RNA [Iden tifie r] in Speci men by CARLOS ALBERTO with probe detec tion FLU B PCR Negati ve NEGATI VE Not Available [facility] (Lab) [address], [place], [address], Not Available 08/17/20 23 08/17/2023 CBC panel - Blood by Autom ated count WBC 7.6 10*3 3.9-10 .4 Not Available [facility] (Lab) [address], [place], [address], Not Available 08/17/20 23 08/17/2023 CBC panel - Blood by Autom ated count RBC 5.44 10*6 3.90-5 .63 Not Available [facility] (Lab) [address], [place], [address], Not Available 08/17/20 23 08/17/2023 CBC panel - Blood by Autom ated count HGB 15.9 g/dl 13.0-1 7.5 Not Available [facility] (Lab) [address], [place], [address], Not Available 08/17/20 23 08/17/2023 CBC panel - Blood by Autom ated count HCT 45.3 % 40.0-5 2.0 Not Available [facility] (Lab) [address], [place], [address], Not Available 08/17/20 23 08/17/2023 CBC panel - Blood by Autom ated count MCV 83.3 fl 82.0-1 00.0 Not Available [facility] (Lab) [address], [place], [address], Not Available 08/17/20 23 08/17/2023 CBC panel - Blood by Autom ated count MCH 29 pg 26-33 Not Available [facility] (Lab) [address], [place], [address], Not Available 08/17/20 23 08/17/2023 CBC panel - Blood by Autom ated count MCHC 35 g/dl 31-35 Not Available [facility] (Lab) [address], [place], [address], Not Available 08/17/20 23 08/17/2023 CBC panel - Blood by Autom ated count RDW 13.2 % 11.8-1 5.7 Not Available [facility] (Lab) [address], [place], [address], Not Available 08/17/20 23 08/17/2023 CBC panel - Blood by Autom ated count PLT 251 10*3 150-45 0 Not Available [facility] (Lab) [address], [place], [address], Not Available 08/17/20 23 08/17/2023 CBC panel - Blood by Autom ated count MPV 10.5 fl 8.7-12 .2 Not Available [facility] (Lab) [address] [place], [address], Not Available 08/17/20 23 08/17/2023 CBC panel - Blood by Autom ated count NEUT% 51.1 % 40.0-7 5.0 Not Available [facility] (Lab) [address] [place], [address], Not Available 08/17/20 23 08/17/2023 CBC panel - Blood by Autom ated count IMGRANS% 0.3 % 0.0-2. 0 Not Available [facility] (Lab) [address], [place], [address], Not Available 08/17/20 23 08/17/2023 CBC panel - Blood by Autom ated count LYMPH% 39.5 % 20.0-4 0.0 Not Available [facility] (Lab) [address], [place], [address], Not Available 08/17/20 23 08/17/2023 CBC panel - Blood by Autom ated count MONO% 6.3 % 0.0-10 .0 Not Available [facility] (Lab) [address], [place], [address], Not Available 08/17/20 23 08/17/2023 CBC panel - Blood by Autom ated count EOS% 2.1 % 0.0-4. 0 Not Available [facility] (Lab) [address], [place], [address], Not Available 08/17/20 23 08/17/2023 CBC panel - Blood by Autom ated count BASOS% 0.7 % 0.0-1. 0 Not Available [facility] (Lab) [address], [place], [address], Not Available 08/17/20 23 08/17/2023 CBC panel - Blood by Autom ated count ANC 3.91 10^3/ uL 1.50-8 .00 Not Available [facility] (Lab) [address], [place], [address], Not Available 08/17/20 23 08/17/2023 CBC panel - Blood by Autom ated count _ Not Available [facility] (Lab) [address], [place], [address], Not Available 08/17/20 23 08/17/2023 Tommie ol [Mass /volu me] in Blood ALCOHOL 160 mg/dl 0-79 Not Available [facility] (Lab) [address], [place], [address], Not Available 08/17/20 23 08/17/2023 Tommie ol [Mass /volu me] in Blood ALC GRAMS 0.160 G/dl 0.000- 0.079 Not Available [facility] (Lab) [address], [place], [address], Not Available 08/17/20 23 08/17/2023 Thyro xine (T4) free [Mass /volu me] in Serum or Plasm a T4 FREE 1.0 ng/dL 0.8-2. 2 Not Available [facility] (Lab) [address], [place], [address], Not Available 08/17/20 23 08/17/2023 Urina lysis compl ete W Refle x Cultu re panel - Urine U.COLOR Yellow YELLOW Not Available [facility] (Lab) [address], [place], [address], Not Available 08/17/20 23 08/17/2023 Urina lysis compl ete W Refle x Cultu re panel - Urine U.CLARITY Clear CLEAR Not Available [facility] (Lab) [address], [place], [address], Not Available 08/17/20 23 08/17/2023 Urina lysis compl ete W Refle x Cultu re panel - Urine U.GLU Negati ve NEGATI VE Not Available [facility] (Lab) [address], [place], [address], Not Available 08/17/20 23 08/17/2023 Urina lysis compl ete W Refle x Cultu re panel - Urine U.BILIRBN Negati ve NEGATI VE Not Available [facility] (Lab) [address], [place], [address], Not Available 08/17/20 23 08/17/2023 Urina lysis compl ete W Refle x Cultu re panel - Urine U.KET Negati ve NEGATI VE Not Available [facility] (Lab) [address], [place], [address], Not Available 08/17/20 23 08/17/2023 Urina lysis compl ete W Refle x Cultu re panel - Urine U.SPGR 1.025 1.001- 1.020 Not Available [facility] (Lab) [address], [place], [address], Not Available 08/17/20 23 08/17/2023 Urina lysis compl ete W Refle x Cultu re panel - Urine U.PH 6.0 5.0-8. 0 Not Available [facility] (Lab) [address], [place], [address], Not Available 08/17/20 23 08/17/2023 Urina lysis compl ete W Refle x Cultu re panel - Urine U.BLOOD Negati ve NEGATI VE Not Available [facility] (Lab) [address], [place], [address], Not Available 08/17/20 23 08/17/2023 Urina lysis compl ete W Refle x Cultu re panel - Urine U.PROTEIN Negati ve NEGATI VE Not Available [facility] (Lab) [address], [place], [address], Not Available 08/17/20 23 08/17/2023 Urina lysis compl ete W Refle x Cultu re panel - Urine U.NITRITE Negati ve NEGATI VE Not Available [facility] (Lab) [address], [place], [address], Not Available 08/17/20 23 08/17/2023 Urina lysis compl ete W Refle x Cultu re panel - Urine U.UROB. 0.2 E.U./d L 0.1-1. 0 Not Available [facility] (Lab) [address], [place], [address], Not Available 08/17/20 23 08/17/2023 Urina lysis compl ete W Refle x Cultu re panel - Urine U.LEUK. Negati ve NEGATI VE Not Available [facility] (Lab) [address], [place], [address], Not Available 08/17/20 23 08/17/2023 Urina lysis compl ete W Refle x Cultu re panel - Urine - Urine Micro scopi c Not Indic ated Not Available [facility] (Lab) [address], [place], [address], Not Available 08/17/20 23 08/17/2023 SARS- CoV-2 (COVI D-19) RNA [Pres ence] in Speci men by CARLOS ALBERTO with probe detec tion [id number] ID MOLECULAR Negati ve NEGATI VE This test metho d utili zes isoth ermal nucle ic acid ampli ficat ion techn ology . Not Available [facility] (Lab) [address], [place], [address], Not Available 08/17/20 23 08/17/2023 Compr ehens christina metab olic 2000 panel - Serum or Plasm a NA 144 mmol/ L 137-14 5 Not Available [facility] (Lab) [address], [place], [address], Not Available 08/17/20 23 08/17/2023 Compr ehens christina metab olic 2000 panel - Serum or Plasm a K+ 3.8 mmol/ L 3.5-5. 1 Not Available [facility] (Lab) [address], [place], [address], Not Available 08/17/20 23 08/17/2023 Compr ehens christina metab olic 2000 panel - Serum or Plasm a CL 107 mmol/ L 98-107 Not Available [facility] (Lab) [address], [place], [address], Not Available 08/17/20 23 08/17/2023 Compr ehens christina metab olic 2000 panel - Serum or Plasm a CO2 26 mmol/ L 22-30 Not Available [facility] (Lab) [address], [place], [address], Not Available 08/17/20 23 08/17/2023 Compr ehens christina metab olic 2000 panel - Serum or Plasm a GLUC 111 mg/dL 70-106 Not Available [facility] (Lab) [address], [place], [address], Not Available 08/17/20 23 08/17/2023 Compr ehens christina metab olic 2000 panel - Serum or Plasm a BUN 10.0 mg/dL 9.0-20 .0 Not Available [facility] (Lab) [address], [place], [address], Not Available 08/17/20 23 08/17/2023 Compr ehens christina metab olic 2000 panel - Serum or Plasm a CREAT 1.1 mg/dl 0.7-1. 3 Not Available [facility] (Lab) [address], [place], [address], Not Available 08/17/20 23 08/17/2023 Compr ehens christina metab olic 2000 panel - Serum or Plasm a ALK.PHOS 62 U/L 38-126 Not Available [facility] (Lab) [address], [place], [address], Not Available 08/17/20 23 08/17/2023 Compr ehens christina metab olic 2000 panel - Serum or Plasm a ALT 29 U/L 1-49 Not Available [facility] (Lab) [address] [place], [address], Not Available 08/17/20 23 08/17/2023 Compr ehens christina metab olic 2000 panel - Serum or Plasm a AST 23 U/L 17-59 Not Available [facility] (Lab) [address] [place], [address], Not Available 08/17/20 23 08/17/2023 Compr ehens christina metab olic 2000 panel - Serum or Plasm a ALB 4.6 g/dl 3.5-5. 0 Not Available [facility] (Lab) [address] [place], [address], Not Available 08/17/20 23 08/17/2023 Compr ehens christina metab olic 2000 panel - Serum or Plasm a TBIL 0.30 mg/dl 0.20-1 .30 Not Available [facility] (Lab) [address] [place], [address], Not Available 08/17/20 23 08/17/2023 Compr ehens christina metab olic 2000 panel - Serum or Plasm a TP 7.5 g/dl 6.3-8. 2 Not Available [facility] (Lab) [address] [place], [address], Not Available 08/17/20 23 08/17/2023 Compr ehens christina metab olic 2000 panel - Serum or Plasm a CA 8.8 mg/dl 8.4-10 .2 Not Available [facility] (Lab) [address] [place], [address], Not Available 08/17/20 23 08/17/2023 Compr ehens christina metab olic 1999 panel - Serum or Plasm a GAP 11.0 mmol/ L 6.0-16 .0 Not Available [facility] (Lab) [address], [place], [address], Not Available 08/17/20 23 08/17/2023 Compr ehens christina metab olic 2000 panel - Serum or Plasm a B/C 9.09 7.00-3 0.00 Not Available [facility] (Lab) [address], [place], [address], Not Available 08/17/20 23 08/17/2023 Compr ehens christina metab olic 2000 panel - Serum or Plasm a OSMO 287 mos/k g 273-30 4 Not Available [facility] (Lab) [address], [place], [address], Not Available 08/17/20 23 08/17/2023 Compr ehens christina metab olic 2000 panel - Serum or Plasm a A/G RATIO 1.59 0.90-2 .30 Not Available [facility] (Lab) [address], [place], [address], Not Available 08/17/20 23 08/17/2023 Compr ehens christina metab olic 2000 panel - Serum or Plasm a GLOBULIN 2.9 g/dl 2.2-3. 9 Not Available [facility] (Lab) [address], [place], [address], Not Available 08/17/20 23 08/17/2023 Compr ehens christina metab olic 2000 panel - Serum or Plasm a GFR- AA Greate r Than 60 mL/mi n/1.7 3_m^2 Not Available [facility] (Lab) [address], [place], [address], Not Available 08/17/20 23 08/17/2023 Compr ehens christina metab olic 2000 panel - Serum or Plasm a GFR- OTHER Greate r Than 60 mL/mi n/1.7 3_m^2 It is recom herberth d that for: GFR value s great er than 60 mL/mi n/1.7 3 sq.me ters - no addit ional renal evalu ation is requi red GFR value s less than 60 mL/mi n/1.7 3 sq.me ters - compl ete evalu ation for renal disea se GFR value s less than 60 mL/mi n/1.7 3 sq.me ters - consu ltati on with a Nephr ologi st Not Available [facility] (Lab) [address], [place], [address], Not Available 08/17/20 23 08/17/2023 Salic ylate s [Mass /volu me] in Serum or Plasm a SALICY <1.0 mg/dL 10.0-2 0.0 Not Available [facility] (Lab) [address], [place], [address], Not Available 08/17/20 23 08/17/2023 Drugs ident ified in Urine by Scree n metho d Nomin al PCP Negati ve NEGATI VE Not Available [facility] (Lab) [address], [place], [address], Not Available 08/17/20 23 08/17/2023 Drugs ident ified in Urine by Scree n metho d Nomin al BZO Positi ve NEGATI VE Not Available [facility] (Lab) [address], [place], [address], Not Available 08/17/20 23 08/17/2023 Drugs ident ified in Urine by Scree n metho d Nomin al DIANA Negati ve NEGATI VE Not Available [facility] (Lab) [address], [place], [address], Not Available 08/17/20 23 08/17/2023 Drugs ident ified in Urine by Scree n metho d Nomin al AMP Negati ve NEGATI VE Not Available [facility] (Lab) [address], [place], [address], Not Available 08/17/20 23 08/17/2023 Drugs ident ified in Urine by Scree n metho d Nomin al THC Negati ve NEGATI VE Not Available [facility] (Lab) [address], [place], [address], Not Available 08/17/20 23 08/17/2023 Drugs ident ified in Urine by Scree n metho d Nomin al OPI Negati ve NEGATI VE Not Available [facility] (Lab) [address], [place], [address], Not Available 08/17/20 23 08/17/2023 Drugs ident ified in Urine by Scree n metho d Nomin al BAR Negati ve NEGATI VE Not Available [facility] (Lab) [address], [place], [address], Not Available 08/17/20 23 08/17/2023 Drugs ident ified in Urine by Scree n metho d Nomin al TCA Negati ve NEGATI VE Not Available [facility] (Lab) [address], [place], [address], Not Available 08/17/20 23 08/17/2023 Drugs ident ified in Urine by Scree n metho d Nomin al MDMA Negati ve NEGATI VE Not Available [facility] (Lab) [address], [place], [address], Not Available 08/17/20 23 08/17/2023 Drugs ident ified in Urine by Scree n metho d Nomin al OXY Negati ve NEGATI VE Not Available [facility] (Lab) [address], [place], [address], Not Available 08/17/20 23 08/17/2023 Drugs ident ified in Urine by Leanne de souzao d Nomin al PPX Negati ve NEGATI VE Not Available [facility] (Lab) [address], [place], [address], Not Available 08/17/20 23 08/17/2023 Aceta minop hen [Mass /volu me] in Serum or Plasm a ACETAM <10.0 ug/ml 10.0-3 0.0 Not Available [facility] (Lab) [address], [place], [address], Not Available 08/17/20 23 08/17/2023 Thyro tropi n [Unit s/vol ume] in Serum or Plasm a TSH 0.43 uIu/m L 0.47-4 .68 Not Available [facility] (Lab) [address], [place], [address], Not Available 08/18/20 23 08/18/2023 Tommie ol [Mass /volu me] in Blood ALCOHOL <10 mg/dl 0-79 Not Available [facility] (Lab) [address], [place], [address], Not Available 08/18/20 23 08/18/2023 Tommie ol [Mass /volu me] in Blood ALC GRAMS <0.010 G/dl 0.000- 0.079 Not Available [facility] (Lab) [address] [place], [address], Not Available 08/18/20 23 08/18/2023 Gas panel - Arter ial blood PH 7.371 7.350- 7.450 Not Available [facility] (Lab) [address], [place], [address], Not Available 08/18/20 23 08/18/2023 Gas panel - Arter ial blood PCO2 45.8 mmHg 35.0-4 8.0 Not Available [facility] (Lab) [address], [place], [address], Not Available 08/18/20 23 08/18/2023 Gas panel - Arter ial blood PO2 111.8 mmHg 80.0-1 00.0 Not Available [facility] (Lab) [address], [place], [address], Not Available 08/18/20 23 08/18/2023 Gas panel - Arter ial blood HCO3 26.8 mmol/ L 22.0-2 6.0 Not Available [facility] (Lab) [address], [place], [address], Not Available 08/18/20 23 08/18/2023 Gas panel - Arter ial blood O2 SAT. 99.0 % 95.0-9 9.0 Not Available [facility] (Lab) [address], [place], [address], Not Available 08/18/20 23 08/18/2023 Gas panel - Arter ial blood O2 DEVICE Room Air Not Available [facility] (Lab) [address], [place], [address], Not Available 08/18/20 23 08/18/2023 Gas panel - Arter ial blood COHGB 6.7 % 0.0-1. 5 Not Available [facility] (Lab) [address], [place], [address], Not Available 08/18/20 23 08/18/2023 Gas panel - Arter ial blood METHGB. 1.20 % 0.00-1 .50 Not Available [facility] (Lab) [address], [place], [address], Not Available 08/18/20 23 08/18/2023 Gas panel - Arter ial blood OXYHGB 91.6 % 70.0-9 5.0 Not Available [facility] (Lab) [address], [place], [address], Not Available 08/18/20 23 08/18/2023 Gas panel - Arter ial blood ALLENS Patien t Passed the Dhruv' s Test Not Available [facility] (Lab) [address], [place], [address], Not Available 08/18/20 23 08/18/2023 Gas panel - Arter ial blood ABG SITE Drawn From Right Radial Artery Not Available [facility] (Lab) [address], [place], [address], Not Available 08/18/20 23 08/18/2023 Gas panel - Arter ial blood DRAWN BY: KM Not Available [facility] (Lab) [address], [place], [address], Not Available 08/18/20 23 08/18/2023 Methi cilli n resis tant Staph yloco ccus aureu s (MRSA ) DNA [Pres ence] in Speci men by CARLOS ALBERTO with probe detec tion MRSA SCREEN PCR Negati ve for MRSA NEGATI VE FOR MRSA Not Available [facility] (Lab) [address], [place], [address], Not Available 08/18/20 23 08/18/2023 Compr ehens christina metab olic 1999 panel - Serum or Plasm a NA 141 mmol/ L 137-14 5 Not Available [facility] (Lab) [address], [place], [address], Not Available 08/18/20 23 08/18/2023 Compr ehens christina metab olic 2000 panel - Serum or Plasm a K+ 3.8 mmol/ L 3.5-5. 1 Not Available [facility] (Lab) [address], [place], [address], Not Available 08/18/20 23 08/18/2023 Compr ehens christina metab olic 1999 panel - Serum or Plasm a CL 108 mmol/ L 98-107 Not Available [facility] (Lab) [address], [place], [address], Not Available 08/18/20 23 08/18/2023 Compr ehens christina metab olic 1999 panel - Serum or Plasm a CO2 26 mmol/ L 22-30 Not Available [facility] (Lab) [address], [place], [address], Not Available 08/18/20 23 08/18/2023 Compr ehens christina metab olic 1999 panel - Serum or Plasm a GLUC 83 mg/dL 70-106 Not Available [facility] (Lab) [address], [place], [address], Not Available 08/18/20 23 08/18/2023 Compr ehens christina metab olic 2000 panel - Serum or Plasm a BUN 9.0 mg/dL 9.0-20 .0 Not Available [facility] (Lab) [address] [place], [address], Not Available 08/18/20 23 08/18/2023 Compr ehens christina metab olic 2000 panel - Serum or Plasm a CREAT 0.9 mg/dl 0.7-1. 3 Not Available [facility] (Lab) [address] [place], [address], Not Available 08/18/20 23 08/18/2023 Compr ehens christina metab olic 2000 panel - Serum or Plasm a ALK.PHOS 52 U/L 38-126 Not Available [facility] (Lab) [address] [place], [address], Not Available 08/18/20 23 08/18/2023 Compr ehens christina metab olic 2000 panel - Serum or Plasm a ALT 27 U/L 1-49 Not Available [facility] (Lab) [address], [place], [address], Not Available 08/18/20 23 08/18/2023 Compr ehens christina metab olic 2000 panel - Serum or Plasm a AST 21 U/L 17-59 Not Available [facility] (Lab) [address], [place], [address], Not Available 08/18/20 23 08/18/2023 Compr ehens christina metab olic 2000 panel - Serum or Plasm a ALB 3.4 g/dl 3.5-5. 0 Not Available [facility] (Lab) [address], [place], [address], Not Available 08/18/20 23 08/18/2023 Compr ehens christina metab olic 2000 panel - Serum or Plasm a TBIL 0.10 mg/dl 0.20-1 .30 Not Available [facility] (Lab) [address], [place], [address], Not Available 08/18/20 23 08/18/2023 Compr ehens christina metab olic 2000 panel - Serum or Plasm a TP 5.7 g/dl 6.3-8. 2 Not Available [facility] (Lab) [address] [place], [address], Not Available 08/18/20 23 08/18/2023 Compr ehens christina metab olic 2000 panel - Serum or Plasm a CA 7.8 mg/dl 8.4-10 .2 Not Available [facility] (Lab) [address] [place], [address], Not Available 08/18/2018 0808/18/2023 Compr ehens christina metab olic 1999 panel - Serum or Plasm a GAP 7.0 mmol/ L 6.0-16 .0 Not Available [facility] (Lab) [address], [place], [address], Not Available 08/18/20 23 08/18/2023 Compr ehens christina metab olic 2000 panel - Serum or Plasm a B/C 10.00 7.00-3 0.00 Not Available [facility] (Lab) [address], [place], [address], Not Available 08/18/20 23 08/18/2023 Compr ehens christina metab olic 2000 panel - Serum or Plasm a OSMO 279 mos/k g 273-30 4 Not Available [facility] (Lab) [address], [place], [address], Not Available 08/18/20 23 08/18/2023 Compr ehens christina metab olic 2000 panel - Serum or Plasm a A/G RATIO 1.48 0.90-2 .30 Not Available [facility] (Lab) [address], [place], [address], Not Available 08/18/20 23 08/18/2023 Compr ehens christina metab olic 2000 panel - Serum or Plasm a GLOBULIN 2.3 g/dl 2.2-3. 9 Not Available [facility] (Lab) [address], [place], [address], Not Available 08/18/20 23 08/18/2023 Compr ehens christina metab olic 2000 panel - Serum or Plasm a GFR- AA Greate r Than 60 mL/mi n/1.7 3_m^2 Not Available [facility] (Lab) [address], [place], [address], Not Available 08/18/20 23 08/18/2023 Compr ehens christina metab olic 2000 panel - Serum or Plasm a GFR- OTHER Greate r Than 60 mL/mi n/1.7 3_m^2 It is recom herberth d that for: GFR value s great er than 60 mL/mi n/1.7 3 sq.me ters - no addit ional renal evalu ation is requi red GFR value s less than 60 mL/mi n/1.7 3 sq.me ters - compl ete evalu ation for renal disea se GFR value s less than 60 mL/mi n/1.7 3 sq.me ters - consu ltati on with a Nephr ologi st Not Available [facility] (Lab) [address], [place], [address], Not Available 08/18/20 23 08/18/2023 CBC panel - Blood by Autom ated count WBC 6.7 10*3 3.9-10 .4 Not Available [facility] (Lab) [address], [place], [address], Not Available 08/18/20 23 08/18/2023 CBC panel - Blood by Autom ated count RBC 4.66 10*6 3.90-5 .63 Not Available [facility] (Lab) [address], [place], [address], Not Available 08/18/20 23 08/18/2023 CBC panel - Blood by Autom ated count HGB 13.4 g/dl 13.0-1 7.5 Not Available [facility] (Lab) [address], [place], [address], Not Available 08/18/20 23 08/18/2023 CBC panel - Blood by Autom ated count HCT 39.8 % 40.0-5 2.0 Not Available [facility] (Lab) [address], [place], [address], Not Available 08/18/20 23 08/18/2023 CBC panel - Blood by Autom ated count MCV 85.4 fl 82.0-1 00.0 Not Available [facility] (Lab) [address], [place], [address], Not Available 08/18/2008/18/2023 CBC panel - Blood by Autom ated count MCH 29 pg 26-33 Not Available [facility] (Lab) [address], [place], [address], Not Available 08/18/2008/18/2023 CBC panel - Blood by Autom ated count MCHC 34 g/dl 31-35 Not Available [facility] (Lab) [address], [place], [address], Not Available 08/18/2008/18/2023 CBC panel - Blood by Autom ated count RDW 13.4 % 11.8-1 5.7 Not Available [facility] (Lab) [address], [place], [address], Not Available 08/18/2008/18/2023 CBC panel - Blood by Autom ated count PLT 203 10*3 150-45 0 Not Available [facility] (Lab) [address], [place], [address], Not Available 08/18/20 23 08/18/2023 CBC panel - Blood by Autom ated count MPV 10.6 fl 8.7-12 .2 Not Available [facility] (Lab) [address], [place], [address], Not Available 08/18/2008/18/2023 CBC panel - Blood by Autom ated count NEUT% 45.8 % 40.0-7 5.0 Not Available [facility] (Lab) [address], [place], [address], Not Available 08/18/20 23 08/18/2023 CBC panel - Blood by Autom ated count IMGRANS% 0.3 % 0.0-2. 0 Not Available [facility] (Lab) [address], [place], [address], Not Available 08/18/20 23 08/18/2023 CBC panel - Blood by Autom ated count LYMPH% 42.5 % 20.0-4 0.0 Not Available [facility] (Lab) [address], [place], [address], Not Available 08/18/20 23 08/18/2023 CBC panel - Blood by Autom ated count MONO% 7.7 % 0.0-10 .0 Not Available [facility] (Lab) [address], [place], [address], Not Available 08/18/20 23 08/18/2023 CBC panel - Blood by Autom ated count EOS% 3.1 % 0.0-4. 0 Not Available [facility] (Lab) [address], [place], [address], Not Available 08/18/20 23 08/18/2023 CBC panel - Blood by Autom ated count BASOS% 0.6 % 0.0-1. 0 Not Available [facility] (Lab) [address], [place], [address], Not Available 08/18/20 23 08/18/2023 CBC panel - Blood by Autom ated count ANC 3.08 10^3/ uL 1.50-8 .00 Not Available [facility] (Lab) [address], [place], [address], Not Available 08/18/20 23 08/18/2023 CBC panel - Blood by Autom ated count _ Not Available [facility] (Lab) [address], [place], [address], Not Available 08/21/2008/21/2023 lamoT RIgin e [Mass /volu me] in Serum or Plasm a LAMOTRIGINE, SERUM <1.0 ug/mL 2.0-20 .0 Detec tion Limit = 1.0 Not Available [facility] (Lab) [address], [place], [address], Not Available 09/05/2009/05/2023 CBC panel - Blood by Autom ated count WBC 8.8 10*3 3.9-10 .4 Not Available [facility] (Lab) [address], [place], [address], Not Available 09/05/2009/05/2023 CBC panel - Blood by Autom ated count RBC 5.38 10*6 3.90-5 .63 Not Available [facility] (Lab) [address], [place], [address], Not Available 09/05/2009/05/2023 CBC panel - Blood by Autom ated count HGB 15.6 g/dl 13.0-1 7.5 Not Available [facility] (Lab) [address], [place], [address], Not Available 09/05/2009/05/2023 CBC panel - Blood by Autom ated count HCT 45.7 % 40.0-5 2.0 Not Available [facility] (Lab) [address], [place], [address], Not Available 09/05/2009/05/2023 CBC panel - Blood by Autom ated count MCV 84.9 fl 82.0-1 00.0 Not Available [facility] (Lab) [address], [place], [address], Not Available 09/05/2009/05/2023 CBC panel - Blood by Autom ated count MCH 29 pg 26-33 Not Available [facility] (Lab) [address], [place], [address], Not Available 09/05/2009/05/2023 CBC panel - Blood by Autom ated count MCHC 34 g/dl 31-35 Not Available [facility] (Lab) [address], [place], [address], Not Available 09/05/2009/05/2023 CBC panel - Blood by Autom ated count RDW 13.6 % 11.8-1 5.7 Not Available [facility] (Lab) [address], [place], [address], Not Available 09/05/2009/05/2023 CBC panel - Blood by Autom ated count PLT 226 10*3 150-45 0 Not Available [facility] (Lab) [address], [place], [address], Not Available 09/05/2009/05/2023 CBC panel - Blood by Autom ated count MPV 10.7 fl 8.7-12 .2 Not Available [facility] (Lab) [address], [place], [address], Not Available 09/05/2009/05/2023 CBC panel - Blood by Autom ated count NEUT% 60.3 % 40.0-7 5.0 Not Available [facility] (Lab) [address], [place], [address], Not Available 09/05/2009/05/2023 CBC panel - Blood by Autom ated count IMGRANS% 0.3 % 0.0-2. 0 Not Available [facility] (Lab) [address], [place], [address], Not Available 09/05/2009/05/2023 CBC panel - Blood by Autom ated count LYMPH% 30.6 % 20.0-4 0.0 Not Available [facility] (Lab) [address], [place], [address], Not Available 09/05/2009/05/2023 CBC panel - Blood by Autom ated count MONO% 5.7 % 0.0-10 .0 Not Available [facility] (Lab) [address], [place], [address], Not Available 09/05/2009/05/2023 CBC panel - Blood by Autom ated count EOS% 2.6 % 0.0-4. 0 Not Available [facility] (Lab) [address], [place], [address], Not Available 09/05/2009/05/2023 CBC panel - Blood by Autom ated count BASOS% 0.5 % 0.0-1. 0 Not Available [facility] (Lab) [address], [place], [address], Not Available 09/05/2009/05/2023 CBC panel - Blood by Autom ated count ANC 5.29 10^3/ uL 1.50-8 .00 Not Available [facility] (Lab) [address], [place], [address], Not Available 09/05/2009/05/2023 CBC panel - Blood by Autom ated count _ Not Available [facility] (Lab) [address], [place], [address], Not Available 09/05/2009/05/2023 Aceta minop hen [Mass /volu me] in Serum or Plasm a ACETAM <10.0 ug/ml 10.0-3 0.0 Not Available [facility] (Lab) [address], [place], [address], Not Available 09/05/2009/05/2023 Urina lysis compl ete W Refle x Cultu re panel - Urine U.COLOR Yellow YELLOW Not Available [facility] (Lab) [address], [place], [address], Not Available 09/05/2009/05/2023 Urina lysis compl ete W Refle x Cultu re panel - Urine U.CLARITY Clear CLEAR Not Available [facility] (Lab) [address], [place], [address], Not Available 09/05/2009/05/2023 Urina lysis compl ete W Refle x Cultu re panel - Urine U.GLU Negati ve NEGATI VE Not Available [facility] (Lab) [address], [place], [address], Not Available 09/05/2009/05/2023 Urina lysis compl ete W Refle x Cultu re panel - Urine U.BILIRBN Negati ve NEGATI VE Not Available [facility] (Lab) [address], [place], [address], Not Available 09/05/2009/05/2023 Urina lysis compl ete W Refle x Cultu re panel - Urine U.KET Negati ve NEGATI VE Not Available [facility] (Lab) [address], [place], [address], Not Available 09/05/2009/05/2023 Urina lysis compl ete W Refle x Cultu re panel - Urine U.SPGR >=1.03 0 1.001- 1.020 Not Available [facility] (Lab) [address], [place], [address], Not Available 09/05/2009/05/2023 Urina lysis compl ete W Refle x Cultu re panel - Urine U.PH 5.5 5.0-8. 0 Not Available [facility] (Lab) [address], [place], [address], Not Available 09/05/2009/05/2023 Urina lysis compl ete W Refle x Cultu re panel - Urine U.BLOOD Negati ve NEGATI VE Not Available [facility] (Lab) [address], [place], [address], Not Available 09/05/2009/05/2023 Urina lysis compl ete W Refle x Cultu re panel - Urine U.PROTEIN Negati ve NEGATI VE Not Available [facility] (Lab) [address], [place], [address], Not Available 09/05/2009/05/2023 Urina lysis compl ete W Refle x Cultu re panel - Urine U.NITRITE Negati ve NEGATI VE Not Available [facility] (Lab) [address], [place], [address], Not Available 09/05/2009/05/2023 Urina lysis compl ete W Refle x Cultu re panel - Urine U.UROB. 0.2 E.U./d L 0.1-1. 0 Not Available [facility] (Lab) [address], [place], [address], Not Available 09/05/2009/05/2023 Urina lysis compl ete W Refle x Cultu re panel - Urine U.LEUK. Negati ve NEGATI VE Not Available [facility] (Lab) [address], [place], [address], Not Available 09/05/2009/05/2023 Urina lysis compl ete W Refle x Cultu re panel - Urine - Urine Micro scopi c Not Indic ated Not Available [facility] (Lab) [address], [place], [address], Not Available 09/05/2009/05/2023 Tommie ol [Mass /volu me] in Blood ALCOHOL <10 mg/dl 0-79 Not Available [facility] (Lab) [address], [place], [address], Not Available 09/05/2009/05/2023 Tommie ol [Mass /volu me] in Blood ALC GRAMS <0.010 G/dl 0.000- 0.079 Not Available [facility] (Lab) [address], [place], [address], Not Available 09/05/2009/05/2023 Drugs ident ified in Urine by Leanne de souzao jasvir Nomin al PCP Negati ve NEGATI VE Not Available [facility] (Lab) [address], [place], [address], Not Available 09/05/2009/05/2023 Drugs ident ified in Urine by Leanne dill metho d Nomin al BZO Negati ve NEGATI VE Not Available [facility] (Lab) [address], [place], [address], Not Available 09/05/2009/05/2023 Drugs ident ified in Urine by Leanne de souzao jasvir Nomin al DIANA Negati ve NEGATI VE Not Available [facility] (Lab) [address], [place], [address], Not Available 09/05/2009/05/2023 Drugs ident ified in Urine by Leanne dill metho d Nomin al AMP Negati ve NEGATI VE Not Available [facility] (Lab) [address], [place], [address], Not Available 09/05/2009/05/2023 Drugs ident ified in Urine by Scree n metho d Nomin al THC Negati ve NEGATI VE Not Available [facility] (Lab) [address], [place], [address], Not Available 09/05/2009/05/2023 Drugs ident ified in Urine by Scree n metho d Nomin al OPI Negati ve NEGATI VE Not Available [facility] (Lab) [address], [place], [address], Not Available 09/05/2009/05/2023 Drugs ident ified in Urine by Scree n metho d Nomin al BAR Negati ve NEGATI VE Not Available [facility] (Lab) [address], [place], [address], Not Available 09/05/2009/05/2023 Drugs ident ified in Urine by Scree n metho d Nomin al TCA Negati ve NEGATI VE Not Available [facility] (Lab) [address], [place], [address], Not Available 09/05/2009/05/2023 Drugs ident ified in Urine by Scree n metho d Nomin al MDMA Negati ve NEGATI VE Not Available [facility] (Lab) [address], [place], [address], Not Available 09/05/2009/05/2023 Drugs ident ified in Urine by Scree n metho d Nomin al OXY Negati ve NEGATI VE Not Available [facility] (Lab) [address], [place], [address], Not Available 09/05/2009/05/2023 Drugs ident ified in Urine by Scree n metho d Nomin al PPX Negati ve NEGATI VE Not Available [facility] (Lab) [address], [place], [address], Not Available 09/05/2009/05/2023 SARS- CoV-2 (COVI D-19) RNA [Pres ence] in Speci men by CARLOS ALBERTO with probe detec tion [id number] ID MOLECULAR Negati ve NEGATI VE This test metho d utili zes isoth ermal nucle ic acid ampli ficat ion techn ology . Not Available [facility] (Lab) [address], [place], [address], Not Available 09/05/2009/05/2023 Thyro tropi n [Unit s/vol ume] in Serum or Plasm a TSH 1.14 uIu/m L 0.47-4 .68 Not Available [facility] (Lab) [address], [place], [address], Not Available 09/05/2009/05/2023 Tommie ol [Mass /volu me] in Blood ALCOHOL 110 mg/dl 0-79 Not Available [facility] (Lab) [address], [place], [address], Not Available 09/05/2009/05/2023 Tommie ol [Mass /volu me] in Blood ALC GRAMS 0.110 G/dl 0.000- 0.079 Not Available [facility] (Lab) [address], [place], [address], Not Available 09/05/2009/05/2023 Thyro xine (T4) free [Mass /volu me] in Serum or Plasm a T4 FREE 1.1 ng/dL 0.8-2. 2 Not Available [facility] (Lab) [address], [place], [address], Not Available 09/05/2009/05/2023 Compr ehens christina metab olic 2000 panel - Serum or Plasm a NA 145 mmol/ L 137-14 5 Not Available [facility] (Lab) [address], [place], [address], Not Available 09/05/2009/05/2023 Compr ehens christina metab olic 1999 panel - Serum or Plasm a K+ 3.7 mmol/ L 3.5-5. 1 Not Available [facility] (Lab) [address], [place], [address], Not Available 09/05/2009/05/2023 Compr ehens christina metab olic 1999 panel - Serum or Plasm a CL 105 mmol/ L 98-107 Not Available [facility] (Lab) [address], [place], [address], Not Available 09/05/2009/05/2023 Compr ehens christina metab olic 2000 panel - Serum or Plasm a CO2 24 mmol/ L 22-30 Not Available [facility] (Lab) [address], [place], [address], Not Available 09/05/2009/05/2023 Compr ehens christina metab olic 2000 panel - Serum or Plasm a GLUC 115 mg/dL 70-106 Not Available [facility] (Lab) [address] [place], [address], Not Available 09/05/2009/05/2023 Compr ehens christina metab olic 2000 panel - Serum or Plasm a BUN 12.0 mg/dL 9.0-20 .0 Not Available [facility] (Lab) [address] [place], [address], Not Available 09/05/2009/05/2023 Compr ehens christina metab olic 2000 panel - Serum or Plasm a CREAT 0.9 mg/dl 0.7-1. 3 Not Available [facility] (Lab) [address] [place], [address], Not Available 09/05/2009/05/2023 Compr ehens christina metab olic 1999 panel - Serum or Plasm a ALK.PHOS 73 U/L 38-126 Not Available [facility] (Lab) [address], [place], [address], Not Available 09/05/2009/05/2023 Compr ehens christina metab olic 1999 panel - Serum or Plasm a ALT 37 U/L 1-49 Not Available [facility] (Lab) [address], [place], [address], Not Available 09/05/2009/05/2023 Compr ehens christina metab olic 1999 panel - Serum or Plasm a AST 29 U/L 17-59 Not Available [facility] (Lab) [address], [place], [address], Not Available 09/05/2009/05/2023 Compr ehens christina metab olic 1999 panel - Serum or Plasm a ALB 4.5 g/dl 3.5-5. 0 Not Available [facility] (Lab) [address], [place], [address], Not Available 09/05/2009/05/2023 Compr ehens christina metab olic 1999 panel - Serum or Plasm a TBIL 0.30 mg/dl 0.20-1 .30 Not Available [facility] (Lab) [address], [place], [address], Not Available 09/05/2009/05/2023 Compr ehens christina metab olic 2000 panel - Serum or Plasm a TP 7.3 g/dl 6.3-8. 2 Not Available [facility] (Lab) [address], [place], [address], Not Available 09/05/2009/05/2023 Compr ehens christina metab olic 1999 panel - Serum or Plasm a CA 8.8 mg/dl 8.4-10 .2 Not Available [facility] (Lab) [address], [place], [address], Not Available 09/05/2009/05/2023 Compr ehens christina metab olic 1999 panel - Serum or Plasm a GAP 16.0 mmol/ L 6.0-16 .0 Not Available [facility] (Lab) [address], [place], [address], Not Available 09/05/2009/05/2023 Compr ehens christina metab olic 1999 panel - Serum or Plasm a B/C 13.33 7.00-3 0.00 Not Available [facility] (Lab) [address], [place], [address], Not Available 09/05/2009/05/2023 Compr ehens christina metab olic 1999 panel - Serum or Plasm a OSMO 289 mos/k g 273-30 4 Not Available [facility] (Lab) [address], [place], [address], Not Available 09/05/2009/05/2023 Compr ehens christina metab olic 2000 panel - Serum or Plasm a A/G RATIO 1.61 0.90-2 .30 Not Available [facility] (Lab) [address], [place], [address], Not Available 09/05/2009/05/2023 Compr ehens christina metab olic 2000 panel - Serum or Plasm a GLOBULIN 2.8 g/dl 2.2-3. 9 Not Available [facility] (Lab) [address], [place], [address], Not Available 09/05/2009/05/2023 Compr ehens christina metab olic 2000 panel - Serum or Plasm a GFR- AA Greate r Than 60 mL/mi n/1.7 3_m^2 Not Available [facility] (Lab) [address], [place], [address], Not Available 09/05/20 23 09/05/2023 Compr ehens christina metab olic 2000 panel - Serum or Plasm a GFR- OTHER Greate r Than 60 mL/mi n/1.7 3_m^2 It is recom herberth d that for: GFR value s great er than 60 mL/mi n/1.7 3 sq.me ters - no addit ional renal evalu ation is requi red GFR value s less than 60 mL/mi n/1.7 3 sq.me ters - compl ete evalu ation for renal disea se GFR value s less than 60 mL/mi n/1.7 3 sq.me ters - consu ltati on with a Nephr ologi st Not Available [facility] (Lab) [address], [place], [address], Not Available 09/05/20 23 09/05/2023 Salic ylate s [Mass /volu me] in Serum or Plasm a SALICY <1.0 mg/dL 10.0-2 0.0 Not Available [facility] (Lab) [address], [place], [address], Not Available 03/23/20 24 03/23/2024 CBC panel - Blood by Autom ated count WBC 7.5 10*3 3.9-10 .4 Not Available [facility] (Lab) [address], [place], [address], Not Available 03/23/20 24 03/23/2024 CBC panel - Blood by Autom ated count RBC 5.58 10*6 3.90-5 .63 Not Available [facility] (Lab) [address], [place], [address], Not Available 03/23/20 24 03/23/2024 CBC panel - Blood by Autom ated count HGB 16.8 g/dl 13.0-1 7.5 Not Available [facility] (Lab) [address], [place], [address], Not Available 03/23/20 24 03/23/2024 CBC panel - Blood by Autom ated count HCT 46.9 % 40.0-5 2.0 Not Available [facility] (Lab) [address], [place], [address], Not Available 03/23/20 24 03/23/2024 CBC panel - Blood by Autom ated count MCV 84.1 fl 82.0-1 00.0 Not Available [facility] (Lab) [address], [place], [address], Not Available 03/23/20 24 03/23/2024 CBC panel - Blood by Autom ated count MCH 30 pg 26-33 Not Available [facility] (Lab) [address], [place], [address], Not Available 03/23/20 24 03/23/2024 CBC panel - Blood by Autom ated count MCHC 36 g/dl 31-35 Not Available [facility] (Lab) [address], [place], [address], Not Available 03/23/20 24 03/23/2024 CBC panel - Blood by Autom ated count RDW 13.1 % 11.8-1 5.7 Not Available [facility] (Lab) [address], [place], [address], Not Available 03/23/20 24 03/23/2024 CBC panel - Blood by Autom ated count PLT 217 10*3 150-45 0 Not Available [facility] (Lab) [address], [place], [address], Not Available 03/23/20 24 03/23/2024 CBC panel - Blood by Autom ated count MPV 10.4 fl 8.7-12 .2 Not Available [facility] (Lab) [address], [place], [address], Not Available 03/23/20 24 03/23/2024 CBC panel - Blood by Autom ated count NEUT% 67.0 % 40.0-7 5.0 Not Available [facility] (Lab) [address], [place], [address], Not Available 03/23/20 24 03/23/2024 CBC panel - Blood by Autom ated count IMGRANS% 0.5 % 0.0-2. 0 Not Available [facility] (Lab) [address], [place], [address], Not Available 03/23/20 24 03/23/2024 CBC panel - Blood by Autom ated count LYMPH% 25.6 % 20.0-4 0.0 Not Available [facility] (Lab) [address], [place], [address], Not Available 03/23/20 24 03/23/2024 CBC panel - Blood by Autom ated count MONO% 5.3 % 0.0-10 .0 Not Available [facility] (Lab) [address], [place], [address], Not Available 03/23/20 24 03/23/2024 CBC panel - Blood by Autom ated count EOS% 0.9 % 0.0-4. 0 Not Available [facility] (Lab) [address], [place], [address], Not Available 03/23/20 24 03/23/2024 CBC panel - Blood by Autom ated count BASOS% 0.7 % 0.0-1. 0 Not Available [facility] (Lab) [address], [place], [address], Not Available 03/23/20 24 03/23/2024 CBC panel - Blood by Autom ated count ANC 5.04 10^3/ uL 1.50-8 .00 Not Available [facility] (Lab) [address], [place], [address], Not Available 03/23/20 24 03/23/2024 CBC panel - Blood by Autom ated count _ Not Available [facility] (Lab) [address], [place], [address], Not Available 03/23/20 24 03/23/2024 Compr ehens christina metab olic 2000 panel - Serum or Plasm a NA 145 mmol/ L 137-14 5 Not Available [facility] (Lab) [address], [place], [address], Not Available 03/23/20 24 03/23/2024 Compr ehens christina metab olic 2000 panel - Serum or Plasm a K+ 3.8 mmol/ L 3.5-5. 1 Not Available [facility] (Lab) [address], [place], [address], Not Available 03/23/20 24 03/23/2024 Compr ehens christina metab olic 2000 panel - Serum or Plasm a CL 106 mmol/ L 98-107 Not Available [facility] (Lab) [address], [place], [address], Not Available 03/23/20 24 03/23/2024 Compr ehens christina metab olic 2000 panel - Serum or Plasm a CO2 27 mmol/ L 22-30 Not Available [facility] (Lab) [address], [place], [address], Not Available 03/23/20 24 03/23/2024 Compr ehens christina metab olic 2000 panel - Serum or Plasm a GLUC 113 mg/dL 70-106 Not Available [facility] (Lab) [address], [place], [address], Not Available 03/23/20 24 03/23/2024 Compr ehens christina metab olic 1999 panel - Serum or Plasm a BUN 12.0 mg/dL 9.0-20 .0 Not Available [facility] (Lab) [address], [place], [address], Not Available 03/23/20 24 03/23/2024 Compr ehens christina metab olic 2000 panel - Serum or Plasm a CREAT 0.9 mg/dl 0.7-1. 3 Not Available [facility] (Lab) [address], [place], [address], Not Available 03/23/20 24 03/23/2024 Compr ehens christina metab olic 2000 panel - Serum or Plasm a ALK.PHOS 69 U/L 38-126 Not Available [facility] (Lab) [address], [place], [address], Not Available 03/23/20 24 03/23/2024 Compr ehens christina metab olic 2000 panel - Serum or Plasm a ALT 59 U/L 1-49 Not Available [facility] (Lab) [address] [place], [address], Not Available 03/23/20 24 03/23/2024 Compr ehens christina metab olic 2000 panel - Serum or Plasm a AST 30 U/L 17-59 Not Available [facility] (Lab) [address], [place], [address], Not Available 03/23/20 24 03/23/2024 Compr ehens christina metab olic 2000 panel - Serum or Plasm a ALB 4.9 g/dl 3.5-5. 0 Not Available [facility] (Lab) [address] [place], [address], Not Available 03/23/20 24 03/23/2024 Compr ehens christina metab olic 1999 panel - Serum or Plasm a TBIL 0.40 mg/dl 0.20-1 .30 Not Available [facility] (Lab) [address], [place], [address], Not Available 03/23/20 24 03/23/2024 Compr ehens christina metab olic 2000 panel - Serum or Plasm a TP 7.8 g/dl 6.3-8. 2 Not Available [facility] (Lab) [address], [place], [address], Not Available 03/23/20 24 03/23/2024 Compr ehens christina metab olic 2000 panel - Serum or Plasm a CA 9.3 mg/dl 8.4-10 .2 Not Available [facility] (Lab) [address], [place], [address], Not Available 03/23/20 24 03/23/2024 Compr ehens christina metab olic 2000 panel - Serum or Plasm a GAP 12.0 mmol/ L 6.0-16 .0 Not Available [facility] (Lab) [address], [place], [address], Not Available 03/23/20 24 03/23/2024 Compr ehens christina metab olic 2000 panel - Serum or Plasm a B/C 13.33 7.00-3 0.00 Not Available [facility] (Lab) [address], [place], [address], Not Available 03/23/20 24 03/23/2024 Compr ehens christina metab olic 2000 panel - Serum or Plasm a OSMO 289 mos/k g 273-30 4 Not Available [facility] (Lab) [address], [place], [address], Not Available 03/23/20 24 03/23/2024 Compr ehens christina metab olic 1999 panel - Serum or Plasm a A/G RATIO 1.69 0.90-2 .30 Not Available [facility] (Lab) [address], [place], [address], Not Available 03/23/20 24 03/23/2024 Compr ehens christina metab olic 1999 panel - Serum or Plasm a GLOBULIN 2.9 g/dl 2.2-3. 9 Not Available [facility] (Lab) [address], [place], [address], Not Available 03/23/20 24 03/23/2024 Compr ehens christina metab olic 1999 panel - Serum or Plasm a GFR- AA Greate r Than 60 mL/mi n/1.7 3_m^2 Not Available [facility] (Lab) [address], [place], [address], Not Available 03/23/20 24 03/23/2024 Compr ehens christina metab olic 2000 panel - Serum or Plasm a GFR- OTHER Greate r Than 60 mL/mi n/1.7 3_m^2 It is recom herberth d that for: GFR value s great er than 60 mL/mi n/1.7 3 sq.me ters - no addit ional renal evalu ation is requi red GFR value s less than 60 mL/mi n/1.7 3 sq.me ters - compl ete evalu ation for renal disea se GFR value s less than 60 mL/mi n/1.7 3 sq.me ters - consu ltati on with a Nephr ologi st Not Available [facility] (Lab) [address], [place], [address], Not Available 03/23/20 24 03/23/2024 Tommie ol [Mass /volu me] in Blood ALCOHOL 174 mg/dl 0-79 Not Available [facility] (Lab) [address], [place], [address], Not Available 03/23/20 24 03/23/2024 Tommie ol [Mass /volu me] in Blood ALC GRAMS 0.174 G/dl 0.000- 0.079 Not Available [facility] (Lab) [address], [place], [address], Not Available 08/17/20 EKG study [facility] [address] [place] [address] Test Date: t Name: STONEY Horton ment: Krishna vilchis ID: [id number] Room: Gender : Aleisha michi: [facility]: [birth year] Requestuardo menard By: Brittani Neville Order Number : [id number] Alicia velasquez MD: Misha Lopez MD Measur ements Interv als [place] Rate: 108 P: 71PR: 139 QRS: 85QRSD : 90 T: 56QT: 318 QTc: 426 Interp retive Statem entsSi nus tachyc ardiaS T elev, probab le normal early repol patter nElect haja lly Signed On 023 12:02: 14 CDT by Misha Lopez MD Not Available [facility] [address], [place], [address], Not Available 08/17/20 EKG study http:/ /[email or web address]. 66.84/ store/ / 020/ec g/1190 [id number]. [id number] 020_20 [id number] .pdf Not Available [facility] [address] [place], [address], Not Available 08/17/20 EKG study PDF Not Available [facility] [address] [place], [address], Not Available 08/17/20 23 EKG study [facility] [address] [place] [address] Test Date: t Name: STONEY MARIN Depart ment: Krishna t ID: [id number] Room: Gender : Sydni Moraes cian: DOB: [birth year] Reques sailaja By: Brittani Neville Order Number : [id number] Alicia velasquez MD: Measur ements Interv als [place] Rate: 108 P: 71PR: 139 QRS: 85QRSD : 90 T: 56QT: 318 QTc: 426 Interp retive Statem entsSi nus tachyc ardiaS T elev, probab le normal early repol patter n Not Available [facility] ([facility]) [address], [place], [address], Not Available 08/17/20 EKG study http:/ /10.1. 66.84/ store/ 020/ec g/1190 [id number]. [id number] 020_ [id number] .pdf Not Available [facility] ([facility]) [address], [place], [address], Not Available 08/17/20 EKG study PDF Not Available [facility] ([facility]) [address], [place], [address], Not Available 09/05/20 EKG study [facility] [address] [place] [address] Test Date: 2022-11 0 t Name: STONEY MARIN Depart ment: Krishna t ID: [id number] Room: Gender : Sydni Morase cian: KMDOB: [birth year] Reques sailaja By: Rodolfo Mohan Order Number : [id number] Alicia velasquez MD: Measur ements Interv als [place] Rate: 66 P: 75PR: 143 QRS: 87QRSD : 89 T: 71QT: 381 QTc: 400 Interp retive Statem entsSi nus arrhyt hmiaST elevat ion sugges ts acute perica rditis Not Available [facility] ([facility]) [address], [place], [address], Not Available 09/05/20 EKG study http:/ /84/ store/ 020/ec g [id number]. [id number] .pdf Not Available [facility] ([facility]) [address], [place], [address], Not Available 09/05/20 EKG study PDF Not Available [facility] ([facility]) [address], [place], [address], Not Available 09/05/20 EKG study [facility] [address] [place] [address] Test Date: 2022-11 t Name: STONEY Horton ment: Krishna vilchis ID: [id number] Room: Gender : [facility] michi: [facility]: [birth year] Reques sailaja By: Rodolfo Mohan Order Number : [id number] Alicia velasquez MD: Misha Lopez MD Measur ements Interv als [place] Rate: 66 P: 75PR: 143 QRS: 87QRSD : 89 T: 71QT: 381 QTc: 400 Interp retive Statem entsSi nus arrhyt hmiaST elevat ion sugges ts acute perica rditis vs early repola rizati on. Clinic alcorr elatio n requir ed.Rosy ctroni jusitn Signed On 2022 10:57: 58 CDT by Misha Lopez MD Not Available [facility] ([facility]) [address], [place], [address], Not Available 09/05/20 EKG study http:/ /84/ store/ 020/ec g [id number]. [id number] 020_20 [id number] .pdf Not Available [facility] [address], [place], [address], Not Available 09/05/20 EKG study PDF Not Available [facility] ([facility]) [address], [place], [address], Not Available 09/05/20 EKG study [facility] [address] [place] [address] Test Date: 2022-11 0-10Pa t Name: STONEY MARIN Depart ment: Krishna vilchis ID: [id number] Room: Gender : Sydni Moraes michi: KMB: - Reques sailaja By: Rodolfo Mohan Order Number : [id number] Alicia velasquez MD: Measur ements Interv als [place] Rate: 86 P: 80PR: 145 QRS: 87QRSD : 91 T: 72QT: 360 QTc: 431 Interp retive Statem entsSi nus rhythm Inferi or infarc t, acute (LCx)S T elevat ion, consid er anteri or injury Latera l leads are also involv ed Not Available [facility] ([facility]) [address], [place], [address], Not Available 09/05/20 EKG study http:/ /10.1. 66.84/ store/ec [id number]. [id number] 020_20 [id number] .pdf Not Available [facility] ([facility]) [address], [place], [address], Not Available 09/05/20 EKG study PDF Not Available [facility] ([facility]) [address], [place], [address], Not Available 09/05/20 EKG study [facility] [address] [place] [address] Test Date: 2022-11 0-10Pa t Name: STONEY Horton ment: Krishna vilchis ID: [id number] Room: Gender : M Techni michi: KMDOB: -[birth year] Requestuardo sailaja By: Rodolfo Mohan Order Number : [id number] Alicia velasquez MD: Misha Lopez MD Measur ements Interv als [place] Rate: 86 P: 80PR: 145 QRS: 87QRSD : 91 T: 72QT: 360 QTc: 431 Interp retive Statem entsSi nus rhythm Diffus e ST elevat ed. Luis koehler on.Rosy jin justin Signed On 2022 10:57: 35 CDT by Misha Lopez MD Not Available [facility] ([facility]) [address], [place], [address], Not Available 09/05/20 EKG study http:/ /10.1. 66.84/ store/ 119 020/ec g/1190 [id number]. [id number] 020_20 [id number] .pdf Not Available [facility] ([facility]) [address], [place], [address], Not Available 09/05/20 23 EKG study PDF Not Available [facility] ([facility]) [address], [place], [address], Not Available 03/23/[address] Cervi omar spine WO contr ast EXAM DESCRI PTION: CT C-SPIN E REASON FOR STUDY: trauma , fell off porch and hit head, no abrasi ons or deform ities noted, highly intoxi cated at arriva lDurat ion: today TECHNI QUE: Axial images throug h the cervic al spine with sagitt al and aguayo l reform atted images . Automa sailaja exposu re contro l was used as a dose optimi zation techni que for this examin ation. COMPAR MCKAY: None. FINDIN GS: ALIGNM ENT: Mild dextro curvat ure. Otherw ise anatom ic. VERTEB ARIEL: No fractu re. Verteb ral body height s well-m aintai hali. DISCS: Relati vely preser [place]. HARDWA RE: None in the spine. INDIVI DUAL DISC LEVELS : No signif icant osseou s spinal canal or neural forami nal stenos is. UPPER THORAC IC: Incomp letely imaged . No signif icant osseou s spinal stenos is or osseou s neural forami nal stenos is. SKULL BASE: No signif icant findin g. LUNG APICES : No signif icant abnorm ality. NECK SOFT TISSUE S: No signif icant abnorm ality. OTHER: No other signif icant findin gs. IMPRES JOSE: No acute osseou s injury of the cervic al spine. MW: MWD: 6:12 PMT: 6:12 PMRepo rt ID: [id number] 1Readi ng Locati on: CRPACS [id number] mana Jg Reese DO, MDDict ation Date: 2023 18:12 Not Available [facility] (Imaging) [address], [place], [address], Not Available 03/23/[address] Head WO contr ast EXAM DESCRI PTION: CT HEAD W/O CONTRA ST REASON FOR STUDY: trauma , fell off porch and hit head, no abrasi ons or deform ities noted, highly intoxi cated at arriva lDurat ion: today TECHNI QUE: Axial images acquir ed throug h the brain withou t intrav enous contra st. Images stored on PACS. Automa sailaja exposu re contro l was used as a dose optimi zation techni que for [facility] COMPAR MCKAY: 2020. FINDIN GS: BRAIN: Ventri cles, cister ns and sulci are symmet arun and normal in size and config uratio n. Liu-w lexie matter differ entiat ion appear s preser [place]. No intrac ranial hemorr selma is eviden t. EXTRA- AXIAL SPACES : No fluid collec tions. No mass effect . CALVAR IUM: No fractu re. SINUSE S/MAST OIDS: Visual ized portio ns are clear. ORBITS : No signif icant abnorm ality. OTHER: No other signif icant abnorm ality. IMPRES JOSE: No acute intrac ranial findin gs. MW: MWD: 6:10 PMT: 6:10 PMRepo rt ID: [id number] 9Readi ng Locati on: [facility] [id number] mana Jg Reese DO, CELESTEict ation Date: 2023 18:10 Not Available [facility] (Imaging) [address], [place], [address], Not Available Result Notes Documentation Provider Name and Address Organization Details Recorded Time Ct, Head, W/o Contrast : EXAM DESCRIPTION: CT HEAD W/O CONTRAST REASON FOR STUDY: trauma, fell off porch and hit head, no abrasions or deformities noted, highly intoxicated at arrival Duration: today TECHNIQUE: Axial images acquired through the brain without intravenous contrast. Images stored on PACS. Automated exposure control was used as a dose optimization technique for this examination. COMPARISON: 07/31/2021. FINDINGS: BRAIN: Ventricles, cisterns and sulci are symmetric and normal in size and configuration. Liu-white matter differentiation appears preserved. No intracranial hemorrhage is evident. EXTRA-AXIAL SPACES: No fluid collections. No mass effect. CALVARIUM: No fracture. SINUSES/MASTOIDS: Visualized portions are clear. ORBITS: No significant abnormality. OTHER: No other significant abnormality. IMPRESSION: No acute intracranial findings. MW: MEAGHAN Report ID: [id number] Reading Location: [id number] Deshawn Reese DO, MD Dictation Date: 03/23/2024 18:10 Not Available [facility] 03/23/[facility]24 19:13:27 Ct, Cervical Spine, W/o Contrast : EXAM DESCRIPTION: CT C-SPINE REASON FOR STUDY: trauma, fell off porch and hit head, no abrasions or deformities noted, highly intoxicated at arrival Duration: today TECHNIQUE: Axial images through the cervical spine with sagittal and coronal reformatted images. Automated exposure control was used as a dose optimization technique for this examination. COMPARISON: None. FINDINGS: ALIGNMENT: Mild dextrocurvature. Otherwise anatomic. VERTEBRAE: No fracture. Vertebral body heights well-maintained. DISCS: Relatively preserved. HARDWARE: None in the spine. INDIVIDUAL DISC LEVELS: No significant osseous spinal canal or neural foraminal stenosis. UPPER THORACIC: Incompletely imaged. No significant osseous spinal stenosis or osseous neural foraminal stenosis. SKULL BASE: No significant finding. LUNG APICES: No significant abnormality. NECK SOFT TISSUES: No significant abnormality. OTHER: No other significant findings. IMPRESSION: No acute osseous injury of the cervical spine. MW: MEAGHAN Report ID: [id number] Reading Location: [id number] Deshawn Reese DO, MD Dictation Date: 03/23/2024 18:12 Not Available [facility] 03/23/2024 19:15:39 Problems Name Problem SNOMED Code Status Onset Date Resolution Date Notes Provider Name and Address Organization Details Recorded Time Alcoholism 3348924 Active 2022 Eliana Briscoe LPN [address] [place], [address], [facility] 3 13:18:37 Depressive disorder 48445468 Active 2022 Ca Gama RN [address] [place], [address], [facility] 3 01:50:23 Gastroesophage al reflux disease 952774701 Active 2017 Charmaine Porter RN [address] [place], [address], [facility] 8 19:51:37 Attention deficit hyperactivity disorder 374184915 Active 2017 Charmaine Porter RN [address] [place], [address], [facility] 8 19:51:46 Heart murmur 28375966 Active 2015 Liliana Torres i, LPN [address] [place], [address], [facility] 6 15:50:06 Asthma 430216202 Active 2015 Liliana Torres i, LPN [address] [place] [address], [address], [facility] 6 15:50:17 Crohn's disease 19917472 [place] [address] [place] [address], [address], [facility] 1 17:35:49 Problem Notes None recorded. Procedures Surgical History Date Name Laterality Status Provider Name and Address Organization Details Recorded Time 4 Peripheral [place] [address] [place] [address], [address], [facility] 03/23/2024 20:12:42 4 Peripheral [place] [address] [place] [address], [address], [facility] 03/23/2024 18:40:30 3 Peripheral [place] [address] [place] [address], [address], [facility] 09/05/2023 00:27:22 3 Peripheral [place] Insertion [place] [address] [place] [address], [address], [facility] 08/18/2023 01:11:24 3 Peripheral IV Insertion [place] [address] [place] [address], [address], [facility] 08/17/2023 22:09:21 1 Peripheral IV Insertion completed Eryn Mehta RN [address] [place], [address], [facility] 09/11/2021 20:04:50 1 Peripheral IV Removal completed Herbert Mauricio RN [address] [place], [address], [facility] 09/10/2021 15:14:55 1 Peripheral IV Insertion completed Violetta Edwards RN [address] [place], [address], [facility] 09/10/2021 04:00:38 1 Peripheral [place] [address] [place] [address], [address], [facility] 08/29/2021 02:54:06 1 Peripheral IV Removal completed Charmaine Juarez RN [address] [place] [address], [address], [facility] 08/29/2021 02:51:18 1 Laceration Repair: Suture completed Don Ward DO [address] [place] [address], [address], [facility] 08/11/2021 00:43:47 1 Peripheral IV Removal completed Rafaela White RN [address] [place] [address], [address], [facility] 08/04/2021 09:50:36 0 Peripheral [place] [address] [place] [address], [address], [facility] 02/06/2020 15:07:22 0 Peripheral [place] [address] [place] [address], [address], [facility] 02/06/2020 12:47:10 8 Peripheral [place] [address] [place] [address], [address], [facility] 06/20/2018 22:05:22 8 Peripheral [place] [address] [place] [address], [phone], [facility] 06/20/2018 20:29:20 Imaging Results None recorded. Procedure Notes Documentation Provider Name and Address Organization Details Recorded Time Procedure Documentation Peripheral IV InsertionIV Inserted: 08/17/2023 Time:2100 Site: right antecubital Skin antisepsis: chlorhexidine Gauge: 20 Attempts: 1 Blood return: yes Flushed: without resistance Secured with: transparent adhesive Complications: none Ca Gama RN [address] [place], [address], [facility] 08/17/2023 22:09:21 Procedure Documentation Peripheral IV InsertionIV Inserted: 08/17/2023 Time: 2308 Site: left forearm Skin antisepsis: chlorhexidine Gauge: 20 Attempts: 1 Blood return: yes Flushed: without resistance Secured with: transparent adhesive Complications: none Ca Gama RN [address] [place], [address], [facility] 08/18/2023 01:11:24 Procedure Documentation Peripheral IV InsertionIV Inserted: 09/04/2023 Time:2319 Site: left antecubital Skin antisepsis: chlorhexidine Gauge: 20 Attempts: 1 Blood return: yes Flushed: without resistance Secured with: transparent adhesive Complications: none Iris Michele RN [address] [place], [address], [facility] 09/05/2023 00:27:23 Procedure Documentation Peripheral IV InsertionIV Inserted: 03/23/2024 Time:1720 Site: left antecubital Skin antisepsis: alcohol Gauge: 20 Attempts: 1 Blood return: yes Flushed: without resistance Secured with: transparent adhesive Complications: none Obdulia Bergman RN [address] [place], [address], [facility] 03/23/2024 18:40:32 Procedure Documentation Peripheral IV RemovalProcedure explained to: patient IV removed with catheter tip intact. Site assessment: clear, cathlon intact. No redness or swelling noted. Dressing: adhesive bandage Complications: none Obdulia Bergman RN [address] [place], [address], [facility] 03/23/2024 20:12:43 Medical Equipment None Reported. Allergies Allergen ID Allergen Name Allergen Category Reaction Reaction Severity Criticality Documentation Date Start Date Code Code System Note Provider Name and Address Organization Details Recorded Time 41106 house dust mite environme nt Not available Not available Not available 04/08/2020 68021 UNK Constance Olivas [facility] 0 21:22:06 No known drug allergies Medications Name Sig Start Date Stop Date Status Note LastModified by Organization Details LastModified Time cyclobenz aprine 10 mg tablet Take 1 tablet 3 times a day by oral route as needed for 5 days. 05/26 completed Not Available Not Available Not Available amoxicill in 500 mg capsule Take 1 capsule every 8 hours by oral route for 10 days. 06/30 completed Not Available Not Available Not Available Xanax 0.5 mg tablet Take 1 tablet every day by oral route as needed. 03/23 completed Not Available Not Available Not Available prednison e 10 mg tablet 06/30 completed Not Available Not Available Not Available divalproe x 250 mg tablet,de layed release TAKE 1 TABLET BY MOUTH THREE TIMES DAILY 06/30 completed Not Available Not Available Not Available trazodone 50 mg tablet 06/30 completed Not Available Not Available Not Available azithromy татьяна 250 mg tablet TAKE 2 TABLETS (500 MG) BY ORAL ROUTE ONCE DAILY FOR 1 DAY THEN 1 TABLET (250 MG) BY ORAL ROUTE ONCE DAILY FOR 4 DAYS 05/26 completed Not Available Not Available Not Available Lidocaine Viscous 2 % mucosal solution Take 15 mL 3 times a day by oral route before meals for 5 days. 07/29 completed Not Available Not Available Not Available Patanol 0.1 % eye drops instill 1 drop by ophthalm ic route 2 times every day into affected eye(s) at an interval of 6 to 8 hours 04/08 completed Prescrib ed Elsewher e: Yes; Uniq Id: [id number]; Location : [facility] ; Brand Name: PATANOL Not Available Not Available Not Available hydrocodo ne 5 mg-acetam inophen 325 mg tablet TAKE 1 TABLET BY MOUTH EVERY 6 HOURS NEEDED FOR ACUTE PAIN 06/30 completed Not Available Not Available Not Available dexametha sone 6 mg tablet Take 1 tablet every day by oral route for 5 days. 05/26 completed Not Available Not Available Not Available Debrox 6.5 % ear drops Instill 5 drops into affected ear(s) by otic route 2 times per day for 4 days; On day 5 irrigate ear(s) with warm water 05/26 completed Not Available Not Available Not Available penicilli n V potassium 500 mg tablet Take 1 tablet every 8 hours by oral route for 7 days. 06/30 completed Not Available Not Available Not Available olanzapin e 10 mg tablet TAKE 1 TABLET BY MOUTH AT BEDTIME 06/30 completed Not Available Not Available Not Available omeprazol e 40 mg capsule,d elayed release Take 1 capsule every day by oral route. 08/19 completed Not Available Not Available Not Available carbamaze pine 200 mg tablet 06/30 completed Not Available Not Available Not Available Zofran 4 mg tablet Take 1 tablet 3 times a day by oral route as needed. 08/19 completed Not Available Not Available Not Available ofloxacin 0.3 % ear drops INSTILL 10 DROPS INTO AFFECTED EAR(S) BY OTIC ROUTE ONCE DAILY x5 DAYS 08/08 completed Not Available Not Available Not Available Lamictal 25 mg tablet Take 2 tablets every day by oral route. 03/23 completed Not Available Not Available Not Available cephalexi n 500 mg capsule 06/30 completed Not Available Not Available Not Available nortripty line 10 mg capsule TAKE 1 CAPSULE BY MOUTH ONCE DAILY AT BEDTIME 06/30 completed Not Available Not Available Not Available divalproe x ER 500 mg tablet,ex tended release 24 hr TAKE 1 TABLET BY MOUTH ONCE DAILY 06/30 completed Not Available Not Available Not Available carbamaze pine 100 mg chewable tablet 06/30 completed Not Available Not Available Not Available sertralin e 25 mg tablet take 1 tablet (25MG) by oral route every day 06/30 completed Not Available Not Available Not Available omeprazol e 20 mg capsule,d elayed release Take 1 capsule twice a day by oral route before meals for 10 days. 07/29 completed Not Available Not Available Not Available diclofena c sodium 75 mg tablet,de layed release Take 1 tablet twice a day by oral route. 06/26 completed Not Available Not Available Not Available folic acid 1 mg tablet TAKE 1 TABLET BY MOUTH ONCE DAILY 06/30 completed Not Available Not Available Not Available hydroxyzi ne HCl 25 mg tablet TAKE 1-2 TABLET (25 MG) BY ORAL ROUTE 4 TIMES PER DAY NEEDED FOR ANXIETY/ SLEEP 03/23 completed Not Available Not Available Not Available gabapenti n 100 mg capsule TAKE 1 CAPSULE BY MOUTH THREE TIMES DAILY 06/30 completed Not Available Not Available Not Available ibuprofen 600 mg tablet Take 1 tablet 3 times a day by oral route. 03/23 completed Not Available Not Available Not Available albuterol sulfate HFA 90 mcg/actua tion aerosol inhaler inhale 2 by Inhalati on route every 4 - 6 hours 05/03 completed Prescrib macie Walsh e: Yes; Uniq Id: [id number]; Location : [facility] ; Brand Name: ALBUTERO L SULFATE HFA Not Available Not Available Not Available ketorolac 60 mg/2 mL intramusc ular solution Inject 1 mL by intramus cular route. 08/08 completed Not Available Not Available Not Available ondansetr on 4 mg disintegr ating tablet Take 4 mg every 6-8 hours by oral route as needed. 05/03 completed Not Available Not Available Not Available fluoxetin e 20 mg capsule TAKE 1 CAPSULE BY MOUTH IN THE MORNING 06/30 completed Not Available Not Available Not Available fluticaso ne propionat e 50 mcg/actua tion nasal spray,jeromy pension 1 spray each nostril twice daily for next 7 days, then daily as needed for congesti on 05/20 completed Not Available Not Available Not Available sertralin e 50 mg tablet 06/30 completed Not Available Not Available Not Available naproxen 500 mg tablet Take 1 tablet twice a day by oral route with meals for 10 days. 06/30 completed Not Available Not Available Not Available amoxicill in 875 mg-potass ium clavulana te 125 mg tablet Take 1 tablet every 12 hours by oral route as directed for 10 days. 07/29 completed Not Available Not Available Not Available escitalop gricelda 20 mg tablet TAKE 1 TABLET BY MOUTH EVERY DAY 06/30 completed Not Available Not Available Not Available omeprazol e daily 05/03 completed Not Available Not Available Not Available Symbicort 160 mcg-4.5 mcg/actua tion HFA aerosol inhaler Inhale by inhalati on route. 05/03 completed Not Available Not Available Not Available Veramyst 27.5 mcg/actua tion nasal spray,jeromy pension spray 2 spray (55MCG) by intranas al route every day in each nostril 06/26 completed Prescrib ed Elsewher e: Yes; Uniq Id: [id number]; Location : [facility] ; Brand Name: VERAMYST Not Available Not Available Not Available Daily-Vit e (with folic acid) 400 mcg tablet 06/30 completed Not Available Not Available Not Available Vitals Date Recorded Body temperature Heart rate Respiratory rate Oxygen saturation Oxygen saturation in Arterial blood by Pulse oximetry Systolic And Diastolic Provider Name and Address Organization Details Last Updated DateTime 4 [id number] 2222 Evie 116 /min 14 /min 95 % 95 % 103/68 mm[Hg] Eryn Mehta RN [address] [place], [address] [place] [address] 4 18:15:04 Date Recorded Body height Body mass index (BMI) Body weight Oxygen saturation Oxygen saturation in Arterial blood by Pulse oximetry Systolic And Diastolic Provider Name and Address Organization Details Last Updated DateTime 3 177.8 cm 23.3 kg/m2 83566 g 95 % 95 % 116/72 mm[Hg] Jian Horn LPN [address] [place], [address] [facility] 3 12:28:38 Date Recorded Heart rate Respiratory rate Oxygen saturation Oxygen saturation in Arterial blood by Pulse oximetry Heart rate Respiratory rate Oxygen saturation Oxygen saturation in Arterial blood by Pulse oximetry Heart rate Respiratory rate Oxygen saturation Oxygen saturation in Arterial blood by Pulse oximetry Provider Name and Address Organization Details Last Updated DateTime 3 118 /min 18 /min 96 % 96 % 114 /min 24 /min 96 % 96 % 98 /min 19 /min 97 % 97 % aC Gama RN [address] [place], [address] [facility] 3 02:49:38 Date Recorded Heart rate Respiratory rate Oxygen saturation Oxygen saturation in Arterial blood by Pulse oximetry Systolic And Diastolic Systolic And Diastolic Systolic And Diastolic Systolic And Diastolic Systolic And Diastolic Provider Name and Address Organization Details Last Updated DateTime 3 97 /min 19 /min 98 % 98 % 109/58 mm[Hg] 104/57 mm[Hg] 93/36 mm[Hg] 85/30 mm[Hg] 90/38 mm[Hg] Ca Gama RN [address] [place], [address] [facility] 3 02:52:19 Date Recorded Body temperature Heart rate Respiratory rate Oxygen saturation Oxygen saturation in Arterial blood by Pulse oximetry Body height Body weight Body mass index (BMI) Systolic And Diastolic Provider Name and Address Organization Details Last Updated DateTime 3 36.609264639 1111 Evie 125 /min 16 /min 94 % 94 % 175.26 cm 53472 g 24.365 kg/m2 114/67 mm[Hg] Deshawn Fontenot RN [address] [place], [address] [facility] 3 21:42:44 Date Recorded Heart rate Respiratory rate Oxygen saturation Oxygen saturation in Arterial blood by Pulse oximetry Heart rate Respiratory rate Oxygen saturation Oxygen saturation in Arterial blood by Pulse oximetry Heart rate Respiratory rate Oxygen saturation Oxygen saturation in Arterial blood by Pulse oximetry Provider Name and Address Organization Details Last Updated DateTime 3 99 /min 22 /min 95 % 95 % 94 /min 21 /min 94 % 94 % 90 /min 19 /min 95 % 95 % Ca Gama RN [address] [place], [address] [facility] 3 02:54:54 Date Recorded Heart rate Respiratory rate Oxygen saturation Oxygen saturation in Arterial blood by Pulse oximetry Heart rate Respiratory rate Oxygen saturation Oxygen saturation in Arterial blood by Pulse oximetry Heart rate Respiratory rate Oxygen saturation Oxygen saturation in Arterial blood by Pulse oximetry Provider Name and Address Organization Details Last Updated DateTime 3 96 /min 18 /min 95 % 95 % 93 /min 18 /min 94 % 94 % 87 /min 20 /min 95 % 95 % Ca Gama RN [address] [place], [address], [facility] 3 02:59:24 Date Recorded Heart rate Respiratory rate Oxygen saturation Oxygen saturation in Arterial blood by Pulse oximetry Heart rate Respiratory rate Oxygen saturation Oxygen saturation in Arterial blood by Pulse oximetry Heart rate Respiratory rate Oxygen saturation Oxygen saturation in Arterial blood by Pulse oximetry Provider Name and Address Organization Details Last Updated DateTime 3 85 /min 17 /min 97 % 97 % 92 /min 19 /min 91 % 91 % 85 /min 19 /min 95 % 95 % Ca Gama RN [address] [place], [address], [facility] 3 03:01:50 Date Recorded Heart rate Respiratory rate Oxygen saturation Oxygen saturation in Arterial blood by Pulse oximetry Heart rate Respiratory rate Oxygen saturation Oxygen saturation in Arterial blood by Pulse oximetry Systolic And Diastolic Systolic And Diastolic Systolic And Diastolic Systolic And Diastolic Systolic And Diastolic Systolic And Diastolic Systolic And Diastolic Systolic And Diastolic Systolic And Diastolic Systolic And Diastolic Systolic And Diastolic Provider Name and Address Organization Details Last Updated DateTime 3 85 /min 18 /min 95 % 95 % 79 /min 18 /min 97 % 97 % 91/35 mm[Hg] 97/40 mm[Hg] 91/36 mm[Hg] 111/57 mm[Hg] 103/56 mm[Hg] 987/51 mm[Hg] 96/53 mm[Hg] 99/514 mm[Hg] 80/33 mm[Hg] 107/49 mm[Hg] 104/47 mm[Hg] Ca Gama RN [address] [place], [address], [facility] 3 03:03:09 Date Recorded Body temperature Heart rate Respiratory rate Oxygen saturation Oxygen saturation in Arterial blood by Pulse oximetry Body temperature Heart rate Respiratory rate Oxygen saturation Oxygen saturation in Arterial blood by Pulse oximetry Systolic And Diastolic Systolic And Diastolic Provider Name and Address Organization Details Last Updated DateTime 3 36.998773431 3333 Evie 64 /min 19 /min 99 % 99 % 36.730222727 8889 Evie 55 /min 18 /min 99 % 99 % 107/65 mm[Hg] 96/54 mm[Hg] Rossy rueda RN [address] [place], [address], [facility] 3 13:24:03 Date Recorded Body temperature Heart rate Respiratory rate Oxygen saturation Oxygen saturation in Arterial blood by Pulse oximetry Inhaled oxygen flow rate Body height Body weight Body mass index (BMI) Body temperature Heart rate Respiratory rate Provider Name and Address Organization Details Last Updated DateTime 3 36.968788393 5556 Evie 82 /min 19 /min 98 % 98 % 2 L/min 175.26 cm 36472 g 26.468 kg/m2 36.922434154 5556 Evie 91 /min 13 /min Enma Huang RN [address] [place], [address], [facility] 3 04:21:37 Date Recorded Oxygen saturation Oxygen saturation in Arterial blood by Pulse oximetry Inhaled oxygen flow rate Systolic And Diastolic Systolic And Diastolic Provider Name and Address Organization Details Last Updated DateTime 3 99 % 99 % 2 L/min 110/51 mm[Hg] 117/74 mm[Hg] Enma Huang RN [address] [place], [address], [facility] 3 04:21:37 Date Recorded Body temperature Heart rate Respiratory rate Oxygen saturation Oxygen saturation in Arterial blood by Pulse oximetry Body height Body weight Systolic And Diastolic Provider Name and Address Organization Details Last Updated DateTime 3 36.639012307 2222 Veie 103 /min 16 /min 96 % 96 % 175.26 cm [address] g 132/71 mm[Hg] Iris galeas RN [address] [place], [address], [facility] 3 23:15:41 Date Recorded Heart rate Respiratory rate Oxygen saturation Oxygen saturation in Arterial blood by Pulse oximetry Body temperature Systolic And Diastolic Provider Name and Address Organization Details Last Updated DateTime 3 116 /min 16 /min 95 % 95 % 36.588239302 4444 Evie 132/76 mm[Hg] Rafaela White RN [address] [place], [address], [facility] 3 19:36:03 Social History Question Answer Notes LastModified by Organizat ion Details LastModified Time Tobacco Smoking Status Current Every Day Smoker Charmaine Juarez, JERAD [address] [place], [address], [facility] 08/28/2021 23:26:19 Do You Have An Advance Directive? No Information not available 08/18/2023 How Many Years Have You Consumed Alcohol? 6 [email or web address] Information not available 05/26/2022 Are You Blind Or Do You Have Difficulty Seeing? No Information not available 05/26/2022 What Is Your Level Of Caffeine Consumption? Occasional [email or web address] Information not available 05/26/2022 How Much Tobacco Do You Chew? None [email or web address] Information not available 07/22/2016 What Is Your Code Status? 0 [email or web address] Information not available 04/23/2024 In The 14 Days Before Symptom Onset, Have You Had Close Contact With A Laboratory-confir med COVID-19 While That Case Was Ill? No [email or web address] Information not available 05/26/2022 If Patient Spent Time In [facility] - Does The Patient Live In [facility]? No [email or web address] Information not available 05/26/2022 In The 14 Days Before Symptom Onset, Have You Had Close Contact With A Person Who Is Under Investigation For COVID-19 While That Person Was Ill? No [email or web address] Information not available 05/26/2022 In The 14 Days Before Symptom Onset, Did The Patient Spend Time In [facility]? No Information not available 05/26/2022 Have You Been To An Area Known To Be High Risk For COVID-19? No [email or web address] Information not available 05/26/2022 Are You Deaf Or Do You Have Serious Difficulty Hearing? No [email or web address] Information not available 05/26/2022 Diabetes No [email or web address] Information n ot available 05/26/2022 What Type Of Diet Are You Following? REGULAR [email or web address] Information not available 05/26/2022 Which Illicit Or Recreational Drugs Have You Used? None [email or web address] Information not available 05/26/2022 Do You Reside In Or Have You Traveled To An Area Where Ebola Virus Transmission Is Active? No [email or web address] Information not available 05/26/2022 Education 10 [email or web address] Information n ot available 05/26/2022 What Is The Highest Grade Or Level Of School You Have Completed Or The Highest Degree You Have Received? [id number] [email or web address] Information not available 05/26/2022 Family History Of Heart Disease? No [email or web address] Information not available 05/26/2022 High Blood Pressure No [email or web address] Information not available 05/26/2022 High Cholesterol No [email or web address] Informa tion not available 05/26/2022 Live Alone Or With Others? With Others [email or web address] Information not available 05/26/2022 Marital Status Single [email or web address] Informati on not available 05/26/2022 Do You Have A Medical Power Of [place]? No [email or web address] Information not available 08/18/2023 What Was The Date Of Your Most Recent Tobacco Screening? 09/04/2023 Information not available 09/04/2023 Are There Any Occupational Health Risks Where You Work? No [email or web address] Information not available 05/26/2022 Have You Ever Been Counseled For Unhealthy Alcohol Use? Yes [email or web address] Information not available 05/26/2022 At What Age Did You Start Smoking Tobacco? 14 [email or web address] Information not available 05/26/2022 Are You Passively Exposed To Smoke? No [email or web address] Information no t available 05/26/2022 How Much Tobacco Do You Smoke? 1 PPD Information not available 09/04/2023 Do You Participate In Social Media? Yes [email or web address] Information not available 08/18/2023 General Stress Level Low [email or web address] Information not available 05/26/2022 Has Tobacco Cessation Counseling Been Provided? Yes [email or web address] Information not available 08/08/2023 How Many Years Have You Smoked Tobacco? 6 [email or web address] Information not available 05/26/2022 Do You Have Difficulty Walking Or Climbing Stairs? No [email or web address] Information not available 05/26/2022 Sex: Male Functional Status Question Answer Note LastModified by Organizat ion Details LastModified Time Do you use any illicit or recreational drugs? No [email or web address] Information not available 07/29/2021 Do you or have you ever used any other forms of tobacco or nicotine? Yes [email or web address] Information not available 05/26/2022 What is your level of alcohol consumption? Occasional Was a daily drinker of beer, whiskey, and vodka. Information not available 09/04/2023 Are you currently employed? Yes Information not available 08/28/2021 Have you been exposed to chemicals or toxins? No [email or web address] Information not available 05/26/2022 Do you have transportation difficulties? No Information not available 08/18/2023 Do you have difficulty doing errands alone? No [email or web address] Information not available 08/18/2023 Are you able to care for yourself? 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 No [email or web address] Information not available 05/26/2022 Do you or have you ever used e-cigarettes or vape? Former user of electronic cigarettes Information not available 09/04/2023 What is your exercise level? Occasional [email or web address] Information not available 05/26/2022 Mental Status Question Answer Note LastModified by Organizat ion Details LastModified Time Do you feel stressed (tense, restless, nervous, or anxious, or unable to sleep at night)? [id number] [email or web address] Information not available 08/18/2023 Do you have difficulty concentrating, remembering or making decisions? Yes [email or web address] Information no t available 05/26/2022 Family History Relationship Description Onset Age of this Age Resolved Age Notes LastModified by Organization Details LastModified Time Father No current problems or disability [email or web address] Not available 15:50:21 Mother No current problems or disability [email or web address] Not available 15:50:21 Medical History Condition Response Coronary Artery Disease N Other Y Gout N Atrial Fibrillation N Blood Diseases N Hyperthyroidism N Emphysema N Lung Disease N Hypothyroidism N Depression N COPD N Defects or Inherited Disease N Pacemaker N Difficulty Swallowing N Gastrointestinal Disease Y Deep Vein Thrombosis N Anxiety Disorder N Autoimmune disease N Pylonephritis N Family history of skin cancer N Difficulty seeing N Arthritis N Blood Clot N Acid Reflux (GERD) Y Cancer N medical appliances N Stroke N Diabetes: Last eye exam? 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 Ear or Hearing Problems N history of skin cancer N Thyroid Problems N GI Problems N Anemia N Heart Attack ([place]) N Diabetes N Bleeding Disorder N Seizures/Epilepsy N Tuberculosis N Myocardial Infarction N Congestive Heart Failure (CHF) N Diverticulitis N Abuse/Domestic Violence N Asthma Y Atrial Flutter N Peripheral Vascular Disease N Bipolar Disorder N Warfarin Management N Hepatitis N Neuropathy N Heart Disease N Pulmonary Embolism N Hypertension N Osteoporosis N Immunizations Vaccine Type Date Status Note Provider Nam e and Address Organization Details Recorded Time Hib, unspecified formulation 2 completed Eliana Briscoe LPN [address] [place], [address], [facility] 06/30/2023 13:13:21 Hib, unspecified formulation 3 completed Eliana Briscoe LPN [address] [place], [address], [facility] 06/30/2023 13:13:21 Hib, unspecified formulation 2 completed Eliana [place], HEALTH AND WELLNESS DIRECTOR [address], [place], [address], [facility] 06/30/2023 13:13:21 Hib-Hep B 2 completed Eliana [place], HEALTH AND WELLNESS DIRECTOR [address], [place], [address], [facility] 06/30/2023 13:13:21 meningococcal B, OMV 8 completed Eliana [place], HEALTH AND WELLNESS DIRECTOR [address], [place], [address], [facility] 06/30/2023 13:13:21 meningococcal B, OMV 8 completed Eliana Rachna, HEALTH AND WELLNESS DIRECTOR [address], [place], [address], [facility] 06/30/2023 13:13:21 HPV9 9 completed Eliana Rachna, HEALTH AND WELLNESS DIRECTOR [address], [place], [address], [facility] 06/30/2023 13:13:21 HPV9 8 completed Eliana Rachna, HEALTH AND WELLNESS DIRECTOR [address], [place], [address], [facility] 06/30/2023 13:13:21 HPV9 8 completed Eliana Newville, HEALTH AND WELLNESS DIRECTOR [address], [place], [address], [facility] 06/30/2023 13:13:21 IPV 2 completed Eliana Rachna, HEALTH AND WELLNESS DIRECTOR [address], [place], [address], [facility] 06/30/2023 13:13:21 IPV 3 completed Eliana Newville, HEALTH AND WELLNESS DIRECTOR [address], [place], [address], [facility] 06/30/2023 13:13:21 IPV 7 completed Eliana Rachna, HEALTH AND WELLNESS DIRECTOR [address], [place], [address], [facility] 06/30/2023 13:13:21 IPV 2 completed Eliana Newville, HEALTH AND WELLNESS DIRECTOR [address], [place], [address], [facility] 06/30/2023 13:13:21 MMR 3 completed Eliana Rachna, HEALTH AND WELLNESS DIRECTOR [address], [place], [address], [facility] 06/30/2023 13:13:21 MMR 7 completed Eliana Rachna, HEALTH AND WELLNESS DIRECTOR [address], [place], [address], [facility] 06/30/2023 13:13:21 pneumococcal conjugate PCV 7 2 completed Eliana Newville, HEALTH AND WELLNESS DIRECTOR [address] [facility], [place], [address], [facility] 06/30/2023 13:13:21 pneumococcal conjugate PCV 7 5 completed Eliana Newville, HEALTH AND WELLNESS DIRECTOR [address] [facility], [place], [address], [facility] 06/30/2023 13:13:21 pneumococcal conjugate PCV 7 2 completed Eliana Newville, HEALTH AND WELLNESS DIRECTOR [address] [facility], [place], [address], [facility] 06/30/2023 13:13:21 pneumococcal conjugate PCV 7 2 completed Eliana Newville, HEALTH AND WELLNESS DIRECTOR [address], [place], [address], [facility] 06/30/2023 13:13:21 Tdap 9 completed Eliana Newville, HEALTH AND WELLNESS DIRECTOR [address], [place], [address], [facility] 06/30/2023 13:13:21 Tdap 3 completed Eliana Rachna, HEALTH AND WELLNESS DIRECTOR [address], [place], [address], [facility] 06/30/2023 13:13:21 varicella 3 completed Eliana Rachna, HEALTH AND WELLNESS DIRECTOR [address], [place], [address], [facility] 06/30/2023 13:13:21 varicella 7 completed Eliana Rachna, HEALTH AND WELLNESS DIRECTOR [address], [place], [address], [facility] 06/30/2023 13:13:21 DTP 7 completed Eliana Newville, HEALTH AND WELLNESS DIRECTOR [address], [place], [address], [facility] 06/30/2023 13:13:21 Hep B, adolescent or pediatric 2 completed Eliana Newville, HEALTH AND WELLNESS DIRECTOR [address] [facility], [place], [address], [facility] 06/30/2023 13:13:21 Hep B, adolescent or pediatric 2 completed Eliana Newville, HEALTH AND WELLNESS DIRECTOR [address] [facility], [place], [address], [facility] 06/30/2023 13:13:21 meningococcal MCV4P 8 completed Eliana Newville, HEALTH AND WELLNESS DIRECTOR [address] [facility], [place], [address], [facility] 06/30/2023 13:13:22 meningococcal MCV4P 3 completed Eliana Newville, HEALTH AND WELLNESS DIRECTOR [address], [place], [address], [facility] 06/30/2023 13:13:22 DTaP 2 completed Eliana Newville, HEALTH AND WELLNESS DIRECTOR [address], [place], [address], [facility] 06/30/2023 13:13:22 DTaP 3 completed Eliana Newville, HEALTH AND WELLNESS DIRECTOR [address] [facility], [place], [address], [facility] 06/30/2023 13:13:22 DTaP 2 completed Eliana Briscoe, HEALTH AND WELLNESS DIRECTOR [address] [facility], [place], [address], [facility] 06/30/2023 13:13:22 DTaP 2 completed Eliana Briscoe, HEALTH AND WELLNESS DIRECTOR [address] [facility], [place], [address], [facility] 06/30/2023 13:13:22 Influenza, split virus, quadrivalent, PF 1 completed Eliana Briscoe, [address], [address], [facility] 06/30/2023 13:13:22 Influenza, split virus, quadrivalent, PF 8 completed Eliana Briscoe, HEALTH AND WELLNESS DIRECTOR [address] [facility], [place], [address], [facility] 06/30/2023 13:13:22 Influenza, split virus, quadrivalent, PF 9 completed Eliana Briscoe, [address], [address], [facility] 06/30/2023 13:13:22 Influenza, split virus, quadrivalent, PF 8 completed Eliana Briscoe, [address], [address], [facility] 06/30/2023 13:13:22 Past Encounters Encounter ID Performer Location Encounter Start Date Encounter Closed Date Diagnosis/Indication Diagnosis SNOMED-CT Code Diagnosis ICD10 Code Diagnosis Note [id number] Brittani Neville MD Emergency Room [facility] [place] [address] 06/20/2018 19:37:00 06/20/2018 22:10:00 [facility] [id number] Russ Lew DO Emergency Room [address] [place] [address] 02/06/2020 12:28:00 02/06/2020 15:19:00 adverse reaction to substance 039981812 [place] [id number] Mame Katz MD Emergency Room [address] [place] [address] 3 04/08/2020 21:15:00 04/08/2020 23:02:00 anxiety disorder [id number] Rodolfo German MD Emergency Room [address] [place] [address] 3 04/12/2020 14:58:00 04/12/2020 15:40:00 noncompliance with medication regimen [id number] Neo Isbell MD Emergency Room [address] [place] [address] 3 05/09/2021 17:35:00 05/09/2021 19:47:00 acute gastritis 11609911 [id number] Neo Isbell MD Emergency Room [address] [place] [address] 3 05/23/2021 02:25:00 05/23/2021 02:54:00 dental caries 79091685 [id number] Neo Isbell MD Emergency Room [address] [place] [address]67[address]706 3 06/24/2021 20:37:00 06/25/2021 04:06:00 alcohol intoxication 02897825 [id number] DR HAWTHORNE ON STAFF OP Lab/Rad/C ardio Test [address] [place] [address] 3 07/29/2021 12:58:00 07/30/2021 00:59:00 [id number] Don Ward DO Emergency Room [address] [place] [address]607[address] 3 07/31/2021 14:26:00 07/31/2021 17:12:00 laceration of left eyebrow [id number] 9487125 contusion of face [id number] Brittani Neville MD Emergency Room [address] [place] [address] 16142-969 3 08/04/2021 07:53:00 08/04/2021 09:44:00 acute gastritis 38578378 [id number] Don Ward DO Emergency Room [address] [place] [address]02-715 3 08/06/2021 12:16:00 08/06/2021 12:28:00 removal of suture 81748785 Removal of suture 352856 [id number] HAWTHORNE ON STAFF OP Lab/Rad/C ardio Test [address] [place] [address] 3 08/19/2021 14:34:00 08/20/2021 00:59:00 [id number] Neo Isbell MD Emergency Room [address] [place] [address] 92319-419 3 08/20/2021 02:14:00 08/20/2021 08:30:00 suicidal thoughts 8772960 depressed mood 098258793 [id number] Neo Isbell MD Emergency Room [address] [place] [address]50-197 3 08/28/2021 22:27:00 08/29/2021 13:30:00 alcohol intoxication 83615872 [id number] Brittani Neville MD Emergency Room [address] [place] [address]65[address] 3 09/10/2021 02:46:00 09/10/2021 15:26:00 acute alcohol intoxication 2144157375 suicidal thoughts [id number] Neo Isbell MD Emergency Room [address] [place] [address]6481-139 3 09/11/2021 18:13:00 09/12/2021 07:52:00 suicidal thoughts 5874784 alcohol intoxication 69935069 [id number] Neo Isbell MD Emergency Room [address] [place] [address]708[address] 3 10/07/2021 02:44:00 10/07/2021 09:40:00 depressive disorder 71669146 suicidal thoughts [id number] Don Ward DO Emergency Room [address] [place] [address]271-274 3 04/16/2022 04:13:00 04/16/2022 13:43:00 suicidal thoughts 8088024 adjustment disorder 86877236 [id number] Brittani Neville MD Emergency Room [address] [place] [address]494[address]596 3 05/17/2022 23:06:00 05/18/2022 02:14:00 wax in ear canal 915255058 [id number] Idris Boudreaux MD Emergency Room [address] [place] [address] 05/18/2022 05:59:00 05/18/2022 12:20:00 suicidal thoughts 3179664 depressive disorder 18979190 [id number] Idris Boudreaux MD Emergency Room [facility] [place] [address] 05/20/2022 22:02:00 05/21/2022 00:20:00 acute COVID-19 [id number] COVID-19 035537289 U07.1 [id number] Neo Isbell MD Emergency Room [facility] [place] [address] 05/27/2022 04:34:00 05/27/2022 13:03:00 depressive disorder 27203513 alcohol intoxication 52000643 [id number] Maxwell Do MD Emergency Room [address] [place] [address] 3 05/30/2022 01:04:00 05/31/2022 18:28:00 suicidal thoughts 5210978 alcohol intoxication 80305913 [id number] Neo Isbell MD Emergency Room [facility] [place] [address] 07/05/2022 04:56:00 07/05/2022 16:09:00 harmful pattern of use of alcohol 26300324 depressive disorder 01948356 depressed mood 053923588 [id number] Idris Boudreaux MD Emergency Room [address] [place] [address]99[address] 3 05/20/2023 22:44:00 05/21/2023 12:23:00 injury of tympanic membrane 231812935 otitis media 85212554 Otitis media 58400734 H6 6.[id number] HAWTHORNE ON STAFF OP Lab/Rad/C ardio Test [address] [place] [address] 81415[address] 3 08/08/2023 12:20:00 08/09/2023 00:59:00 [id number] Chano Obregon MD ICU [address] [place] [address] [place] [address] 08/17/2023 21:38:00 08/18/2023 16:49:00 acute alcohol intoxication 1184120611 benzodiaze pine intoxication 020303117 [id number] Rodolfo Mohan MD Emergency Room [address] [place] [address] 09/04/2023 22:53:00 09/05/2023 11:15:00 suicidal thoughts 8368538 history of depression 146684012 history of alcoholism 420544052 stress 60460818 anxiety 59708954 Anxiety 42664349 F41.9 [id number] Rodolfo Mohan MD Emergency Room [address] [place] [address] 09/06/2023 19:24:00 09/06/2023 19:43:00 [id number] KASSI QUILES MD Emergency Room [address] [place] [address] 03/23/2024 18:06:00 03/23/2024 19:53:00 fall 9285196 alcohol intoxication 89029481 closed injury of head 45 51910071 06 Health Concerns Section Related Observation LastModified by Organization Detai ls LastModified Time None Recorded Concern Status LastModified by Organization Details LastModified Time None Recorded Advance Directives Directive N: Payers Insurance Date Sequence Insurance Name Policy Number Policy Song Covered Member ID Song Member ID Guarantor Name 06/30/2023 1 [place] [employer] Stoney Marin [id number] Stoney Marin 04/02/2025 1 [facility] (MEDICAID HMO) [id number] Stoney Marin [id number] Stoney Marin 08/08/2023 COVID TRACKING Stoney Marin [id number] Stoney Marin Notes Date Note Type Note Provider Name and Address Organization Details Recorded Time 08/08/2023 text/html Pt presents for c/o bianca ear pain and congestion since . Has not been using OTCs at home. Sister COVID + and brother is symptomatic but has not been confirmed. Day Fernandes, YARN MERCERIZER OPERATOR HELPER [address] [place], [address], [facility] 08/08/2023 12:49:08
--- OUTSIDE RECORDS SUMMARY | 2025-06-03 23:55 | XMS_ITS | Patient Health Record ---
Author Organization [id number] [facility] Address [address] [place], [place] [id number] Support Name Relationship Address Phone Jovanna Marin Emergency Contact Unknown [phone] Stoney Marin Guarantor Unknown [phone] Reason For Referral No Information Plan Of Treatment No Information Insurance Providers Payer Name Payer Address Payer Phone Subscriber Number Group Number Insured Name Patient Relationship to Insured Coverage Start Date Coverage End Date MELISA GAVIRIA [address] [place], [place] [id number] Stoney Marin Self - patient is the insured 3
--- OUTSIDE RECORDS SUMMARY | 2025-06-03 23:55 | XMS_ITS | Patient Health Record ---
Author Organization [facility] Address [address] [facility] [address] [place] [address] Care Team Providers Care Avionics Mechanic Name Role Phone Constance Oneill Primary Care Provider [phone] Juany Fagan Unavailable [phone] Jori Lim Unavailable [phone] Fiordaliza Hassan Unavailable [phone] Allergies No Known Allergies Reason For Referral No Information Medications Medication SIG (Take, Route, Frequency, Duration) Notes Start Date End Date Status Symbicort 80-4.5 MCG/ACT 2 puffs Inhalat ion Twice a day PRN Active Methylphenidate HCl 10 MG 1 tablet Orall y Twice a day Active Social History Tobacco Use: Social History Observation Description Date Details (start date - stop date) Never Smoker NA - NA Tobacco Use/Smoking Question Answer Notes Are you a nonsmoker Tobacco use other than smoking: Question Answer Notes Are you an other tobacco user? No Section Notes: non smoker caffeine 4 or more cups daily non smoker caffeine 4 or more cups daily non smoker caffeine 4 or more cups daily Encounters Encounter Location Date Provider Diagnosis [facility] [address] [facility] [address] [place] [address] 06/04/2024 Juany Fagan [facility] [address] [place] [address] 06/09/2024 Constance Oneill [facility] [address] [place] [address] 06/23/2024 Jori Lim [facility] [address] [facility] [place] [address] 01/28/2025 Jori Raphael [facility] [address] [place] [address] 02/03/2025 Jori Raphael Plan Of Treatment No Information Insurance Providers Payer Name Payer Address Payer Phone Subscriber Number Group Number Insured Name Patient Relationship to Insured Coverage Start Date Coverage End Date [facility] [address] [place] [address] [id number] Stoney Marin Self - patient is the insured 2 [employer] [facility] [address] [place] [address] [id number] Stoney Marin Self - patient is the insured 5 5 O [employer]FS [address] [place] [address] [id number] Stoney Marin Self - patient is the insured 2 [facility] [employer] Nonbillable [address] [place] [address] [id number] Stoney Marin Self - patient is the insured 2
--- OUTSIDE RECORDS SUMMARY | 2025-06-03 23:55 | XMS_ITS ---
Author Organization Unknown Address [address] [place], [place] [id number] Phone Care Team Providers Care Intel Recruiter Name Role Phone Unavailable Xwatchlist Unavailable MELBA MACKEY Attending Unavailable MELBA MACKEY Transferring Provider [phone] Immunization Immunization Date Status Additional Notes Code Code System DTP 05/03/2007 Completed 01 CVX MMR 02/05/2003 Completed 03 CVX MMR 05/03/2007 Completed 03 CVX Hep B, adolescent or pediatric 2001 Completed 08 CVX Hep B, adolescent or pediatric 2001 Completed 08 CVX IPV 01/27/2002 Completed 10 CVX IPV 06/12/2002 Completed 10 CVX IPV 02/05/2003 Completed 10 CVX IPV 05/03/2007 Completed 10 CVX Hib, unspecified formulation 01/27/2002 Completed 17 CVX Hib, unspecified formulation 03/31/2002 Completed 17 CVX Hib, unspecified formulation 02/05/2003 Completed 17 CVX DTaP 01/27/2002 Completed 20 CVX DTaP 03/31/2002 Completed 20 CVX DTaP 06/12/2002 Completed 20 CVX DTaP 02/05/2003 Completed 20 CVX varicella 02/05/2003 Completed 21 CVX varicella 05/03/2007 Completed 21 CVX Hib-Hep B 06/12/2002 Completed 51 CVX pneumococcal conjugate PCV 7 01/27/2002 Completed 100 CVX pneumococcal conjugate PCV 7 03/31/2002 Completed 100 CVX pneumococcal conjugate PCV 7 06/12/2002 Completed 100 CVX pneumococcal conjugate PCV 7 03/03/2005 Completed 100 CVX meningococcal MCV4P 06/12/2013 Completed 114 CVX meningococcal MCV4P 02/18/2018 Completed 114 CVX Tdap 06/12/2013 Completed 115 CVX Tdap 03/21/2019 Completed 115 CVX Influenza, split virus, quadrivalent, PF 02/18/2018 Completed 150 CVX Influenza, split virus, quadrivalent, PF 09/18/2018 Completed 150 CVX Influenza, split virus, quadrivalent, PF 09/04/2019 Completed 150 CVX Influenza, split virus, quadrivalent, PF 01/18/2021 Completed 150 CVX meningococcal B, OMV 09/18/2018 Completed 163 CVX meningococcal B, OMV 10/21/2018 Completed 163 CVX HPV9 02/18/2018 Completed 165 CVX HPV9 09/18/2018 Completed 165 CVX HPV9 12/12/2018 Completed 165 CVX Results LIPID PROFILE [facility] - Collect Date/Time: 10/04/2022 06:21 [facility] ID: [id number] - [id number] [address], [place], [address] LOINC: 03419-2 Test Value Unit Reference Range Code Code System Flag TRIGLYCERIDE 227 mg/dL L=30 H=150 2571-8 LOINC H CHOLESTEROL 135 mg/dL L=0 H=200 2093-3 LOINC HDL CHOL 43 mg/dl L=40 H=59 2085-9 LOINC LDL 47 mg/dL L=5 H=100 05086-1 LOINC LDL/HDL RATIO 1 84363-8 LOINC CHOL/HDL 3 HGB A1C - Collect Date/Time: 10/04/2022 06:21 [facility] ID: [id number] [address], [place], [address] LOINC: 4548-4 Test Value Unit Reference Range Code Code System Flag HGB A1C 5.8 % 4548-4 LOINC Social History Type Status Start Date End Date Code Code Syst em Smoking History Never smoker (Never Smoked) 028064008 SNOMED CT Sex Male Vital Signs Vital Sign Value Unit Mikado Value Mikado Unit Date/Time Recent/Initial? Code Code System Body Mass Index 24.72 kg/m2 10/03/2022 21:13 Most Recent 67218 -5 LOINC Body Mass Index 24.66 kg/m2 10/03/2022 20:40 Initial 59790 -5 LOINC Systolic Blood Pressure 119 mm[Hg] 10/06/2022 12:14 Most Recent 8480- 6 LOINC Diastolic Blood Pressure 82 mm[Hg] 10/06/2022 12:14 Most Recent 8462- 4 LOINC Systolic Blood Pressure 122 mm[Hg] 10/03/2022 21:12 Initial 8480- 6 LOINC Diastolic Blood Pressure 68 mm[Hg] 10/03/2022 21:12 Initial 8462- 4 LOINC Body Surface Area 1.92 m2 10/03/2022 21:13 Most Recent 3140- 1 LOINC Body Surface Area 1.92 m2 10/03/2022 20:40 Initial 3140- 1 LOINC Height 175.260 0 cm 69.00 in 10/03/2022 21:13 Most Recent 8302- 2 LOINC Height 175.260 0 cm 69.00 in 10/03/2022 20:40 Initial 8302- 2 LOINC O2 Saturation 95 % 2021 12:14 Most Recent 69807 -5 LOINC O2 Saturation 98 % 2021 21:12 Initial 09253 -5 LOINC Pulse 91.0 /min 10/06/2022 12:14 Most Recent 8867- 4 LOINC Pulse 70.0 /min 10/03/2022 21:12 Initial 8867- 4 LOINC Respiration 18 /min 10/06/20 22 12:14 Most Recent 9279- 1 LOINC Respiration 18 /min 10/03/20 21:12 Initial 9279- 1 LOINC Temperature 36.7 Evie 98.0 F 10/06/20 22 12:14 Most Recent 8310- 5 LOINC Temperature 36.4 Evie 97.5 F 10/03/20 22 21:12 Initial 8310- 5 LOINC Weight 77.56 kg 171.00 lbs 10/06/2022 12:15 Most Recent 57913 -7 LOINC Weight 75.75 kg 167.00 lbs 10/03/2022 20:40 Initial 62306 -7 LOINC Medications Medication Start Date End Date Route Frequency Dose Code Code System Medication Instructions Home Meds Mirtazapine 15MG Oral Tablet 10/06/2022 Unknown BY MOUTH BEDTIME 15 MILLIGRAMS 749116 RxNorm TAKE 15 MILLIGRAMS BY MOUTH BEDTIME CH-Igcxljum-Wld ymyxin 1%-0.35%-30100M /1ML Otic Solution 10/06/2022 Unknown LEFT EAR THREE TIMES DAILY 4 DROP 498952 RxNorm PUT IN 4 DROP LEFT EAR THREE TIMES DAILY buPROPion HCl 150MG Oral Tablet, Extended Release, 24 HR 10/06/2022 Unknown BY MOUTH DAILY 150 MILLIGRAMS 678441 RxNorm TAKE 150 MILLIGRAMS BY MOUTH DAILY traZODone hydrochloride 50MG Oral Tablet 10/06/2022 Unknown BY MOUTH NEEDED AT BEDTIME 50 MILLIGRAMS 057351 RxNorm TAKE 50 MILLIGRAMS BY MOUTH NEEDED AT BEDTIME Assessment Assessment & Plan: 1. Depression with SI - Plan per Dr. Saeed 2. Tobacco use - nicotine patch per protocol if patient desires, discussed smoking cessation 3. Alcohol abuse - monitor for signs of withdrawal and seizures 4. Otitis Externa - treating with polymyxin gtts x5 days Time spent: Greater than 80 minutes spent with patient, 50% of the time spent with this patient was devoted to counseling and coordination of care IRISH Breen REASON FOR INPATIENT ADMISSON:DEPRESSION/SUICIDAL THOUGHTS. MOLD STRIPPER:CHYNA , FOR MED QUESTIONS PHONE .REVIEWED/UPDATED SAFETY PLAN WITH PT..GAVE UPDATED COPY OF SAFETY PLAN TO PT..PROVIDED PT SUICIDE PREVENTION HANDOUT.PROVIDED COVID-19/RESPIRATORY INFECTION, PRECAUTION EDUCATION.. Hospital Discharge Instructions Should you have any questions prior to discharge, please contact a member of your healthcare team. If you have left the hospital and have any questions, please contact your primary care physician. FOLLOW-UP CARE:MEDICATION MANAGEMENTAPPOINTMENT WITH DR. [id number] AT 845AM*ARRIVE AT 815 FOR NEW PATIENT PAPERWORK*[address] [phone] THIS PROVIDER HAS ACCESS TO EHR. ADVANCE DIRECTIVE ON DISCHARGEPt does not have a medical nor psych, advance directive, Patient refused.Information provided to patient. DIET:REGULAR DIET. INFLUENZA VACCINE ORDERED & GIVEN UPON ADMISSION:NO. PNEUMOCOCCAL VACCINATION ORDERED & GIVEN UPON ADMISSION:NO. HX OF TOBACCO USE WITHIN 12 MONTHSYES-PT GIVEN SMOKING CESSATION EDUCATION, QUITLINE REFERRAL REFUSED.PT ADVISED FOR THEIR HEALTH NOT TO SMOKE. SMOKING CESSATION INFOPRESCRIPTION FOR NICOTINE, PATCH SENT TO, PATIENT'S PHARMACY..PATIENT ADVISED TO FOLLOW, UP WITH THEIR PHP IF, THEY WISH TO.CONTINUE SMOKING CESSATION THERAPY., PATIENT ADVISED NEVER TO SMOKE.OR USE OTHER NICOTINE PRODUCTS, WHILE WEARING A PATCH..PATIENT REFUSED OUTPATIENT COUNSELING. EDUCATIONAL MATERIALS RETURNED BY PATIENT?:N/A. MEDICATIONS RETURNED:N/A. MODE OF DEPARTURE AND RESIDENCE:LEFT, AMBULATORY,home with friend PATIENT CONDITION ON DISCHARGE:FAIR. PATIENT DIAGNOSIS AT DISCHARGE:MAJOR DEPRESSIVE DISORDER. MAJOR PROCEDURES AND TESTS PERFORMED DURING INPATIENT STAY:RESULTS PROVIDED TO PATIENT AND, COPIES AVAILABLE IN MEDICAL RECORDS DEPT.[facility] . STUDIES PENDING AT DISCHARGE:NA: NONE PENDING AT DISCHARGE. IN THE EVENT OF AN EMERGENCY:911 for Medical Emergency, 988 [place] Suicide Prevention Lifeline. SPECIAL INSTRUCTIONS REVIEWED WITH:N/A. NURSE GAVE INSTRUCTIONS, & PT DEMONSTRATED UNDERSTANDING OF:DIET, MEDICATIONS, FOLLOW-UP CARE. SPECIAL INSTRUCTIONS:FOLLOW-UP WITH PRIMARY CARE PROVIDER.PRESCRIPTIONS SENT TO PHARMACY OF CHOICE. Miscellaneous:My signature below, indicates the nurse, explained the contents.of this form to me, instructions given, instructions given.and that I received, a copy of this form, after verbally repeating.the instructions given., I also agree that. Miscellaneous:(Continued)I am not thinking,, to harm myself, or others., If I should feel.a threat to myself, or others I agree, to call the, emergency phone number.above or the, [facility] at, [facility].immediately at, , Hospital physician usually does not.refill prescriptions after discharge., Your outpatient provider will discussmedication refills on your follow-up, appointment. Continue all medications.until told to stop.. ADDITIONAL RESOURCES AVAILABLE:[place] Suicide Prevention Lifeline:988.orCall: TTY .or [place] [facility] Warm Line, Call: TTY TIME OF DISCHARGE:PATIENT DISCHARGED HOME AT 1335. DENIES SI/HI/HALLUCINATIONS. DISCHARGEINSTRUCTIONS REVIEWED WITH PATIENT, VERBALIZED UNDERSTANDING. PERSONALBELONGINGS RETURNED TO PATIENT. AMBULATED OUT WITH STAFF TO AWAITINGTRANSPORTATION. Reason For Referral Reason for Referral: D/C from [facility]/Referral to Dr. Constantino at [facility] on 10/12/2022 at 8:45am, arrival time 8:15am. Receiving Provider: JASIEL Mary [id number] Appointment Date: 10/12/2022 Additional Information: CCD/Transition of Care sent electronically on 10/06/2022 at 1:36pm. Allergies and Adverse Reactions Allergy Substance Reaction Severity Start Date Concern Status Co de Code System No Known Drug Allergies Active 224971022 SNOMED-CT Plan of Treatment No Data Found Encounters Encounter Diagnosis Start Date Code Code Sys tem Major depressive disorder, recurrent, moderate 022 SNOMED-CT Personal Care Team Section Discharge Summary Notes [facility] 10/06/2022 14:35 Demographics w/o Service Date Patient Name Age Sex Visit Number Admission Date/Time Attending Physician Room and Bed Emergency Contact STONEY MARIN 2000 21 years Male [id number] 10/03/2022 22:34 LATA SAEED [id number] PAR[place] MARIN - [id number] DISCHARGE SUMMARY REPORT SERVICE DATE: 10/06/2022 DATE OF DISCHARGE 10/06/2022 PROCEDURE CODE: 43948 IDENTIFYING INFORMATION: Mr. Stoney Marin is a 21 yo white male who is legally competent. He is a voluntary admission to [facility]. HISTORY OF PRESENT ILLNESS: Mr. Marin presented to [facility] ED in [place], [place], with a friend who stated that Mr. Marin had been making suicidal statement while he was drunk. Mr. Marin acknowledged that he was very depressed after his girlfriend broke up with him. He stated that he wanted to kill himself but did not reveal a plan to interviewer. He acknowledges drinking up to 30 beers daily and BAL was 150 in ED initially. His home medications included Remeron 7.5 mg HS. UDS was negative. He further acknowledged that his family was against him because of his drinking. On interview this morning at [facility], he confirmed above information. He was somewhat groggy and was difficult to interview. He stated that he binge drinks up to 30 beers at a time when he drinks. He reported that he broke up with his girlfriend 1-2 weeks ago. He was vague about history of self-harm which was documented in ED record. He acknowledged that his girlfriend and his family thought his alcohol use was a problem. PAST PSYCHIATRIC HISTORY: Mr. Marin acknowledges 10 previous psychiatric admissions with one suicide attempt a year ago when he tried to hang himself. He states there is no family history of psychiatric illness or suicide attempts. ALLERGIES: Allergy Table Allergen Type Reaction No Known Environmental Allergies environment No Known Drug Allergies medication VITALS SIGNS: Vital Signs: Today Date/Time BP (mm/Hg) BP Position/Site Heart Rate Resp Temp (C) Temp (F) SPO2% O2 Device Blood Sugar (mg/dL) Pain Score Height (cm) Height (in) Weight (kg) Weight (lbs/ozs) BMI Head Cir (cm) 10/06/2022 11:25 36.4 ORAL 97.5 ORAL 10/06/2022 05:05 141/94 SITTING/R ARM 63 16 36.2 TEMPORAL SCANNING 97.1 TEMPORAL SCANNING 97 % DIAGNOSTIC LABS: Lab Results: This Visit Test Results Units Reference Range Ordered Collected Status HGB A1C 5.8 % 10/04/2022 00:00 10/04/2022 06:21 final TRIGLYCERIDE 227 H mg/dL L=30 H=150 10/04/2022 00:00 10/04/2022 06:21 final CHOLESTEROL 135 mg/dL L=0 H=200 10/04/2022 00:00 10/04/2022 06:21 final HDL CHOL 43 mg/dl L=40 H=59 10/04/2022 00:00 10/04/2022 06:21 final LDL 47 mg/dL L=5 H=100 10/04/2022 00:00 10/04/2022 06:21 final LDL/HDL RATIO 1 10/04/2022 00:00 10/04/2022 06:21 final CHOL/HDL 3 10/04/2022 00:00 10/04/2022 06:21 final HOME MEDICATIONS: Discharge Medications Mirtazapine 15MG Oral Tablet DA-Blygvcxj-Tbrcipbmq 1%-0.35%-24697E/1ML Otic Solution buPROPion HCl 150MG Oral Tablet, Extended Release, 24 HR traZODone hydrochloride 50MG Oral Tablet PERSONAL HISTORY: Mr. Marin is single, never with no known children. He has been living with a sadie for the past couple of months. He has been working at [employer] for about a week. He has an 11th grade education. HOSPITAL COURSE: Mr. Marin had no suicidal/self-harm behaviors during this hospitalization. He was started on medical alcohol detox of librium 25 mg tid PRN. He tolerated medical detox without seizure or perceptual disturbance. Initially he was agreeable to a referral to [facility], but then abruptly rescinded permission. He voiced no suicidal ideation, plan or intent during the hospitalization. He stated that I got drunk, that's what happened. He had poor insight into his need to abstain from alcohol to prevent further suicidal ideation while drinking. He was also started on Wellbutrin XR 150 mg daily and Remeron 7.5 mg HS for his depressive symptoms. He reported no significant side effects from psychotropic medications. He was not a danger to himself or others at the time of his discharge. He contacted his roommate who provided safety plan information and stated that he would pick Mr. Marin up from our facility. Mr. Marin was ambivalent about followup recommendations. DIAGNOSES AT THE TIME OF DISCHARGE: AXIS I: Major depression, recurrent, moderate without psychosis Alcohol use disorder, moderate, continuous Rule out bipolar disorder AXIS II: Deferred AXIS III: SEE MEDICAL HISTORY. AXIS IV: Chronic alcohol use, psychosocial stress, depression with poor compliance AXIS V: 50 Was more than one antipsychotic medication ordered at discharge? NA Did failed trials of antipsychotic therapy include dosing or timing changes? NA AFTERCARE PLAN: The patient was advised to continue taking current medications. The patient was explained the importance of medication and treatment adherence. The risks versus benefits and side effects of medications were discussed. The patient and the social media project manager will have safety plan and follow up appointment in place prior to her discharge today. [facility] Discharge Summary 2.1 Scanned image History and Physical Notes [facility] 10/03/2022 23:16 All Demographics Patient Name Age Sex Visit Number Admission Date/Time Attending Physician Date of Service Room and Bed Emergency Contact ANDRE STONEY Hinkle 2000 21 years Male [id number] 10/03/2022 20:58 LATA SAEED 10/03/2022 [id number] PAR[place] MARIN - [id number] 10/03/2022 22:47 Chief Complaint: DEP WITH SI HISTORY OF PRESENT ILLNESS: Hospitalist services consulted for medical H&P. 21 yo male comes to [facility] from [facility] for depression with SI. Patient reports he has been depressed and drinking heavily more recently. His girlfriend broke up with him and he has been torn up since then. Denies a specific suicide plan at this time. Denies hallucinations. His only complaint is pressure to his left ear. States he has been on oral antibiotics to treat a sinus infection/ear infection 1-2 months ago and it did not help. Past Medical History: Crohn's disease Asthma Depression Suicide attempt Past Surgical History: Ear tubes Family History: None Social History: 1 ppd smoker Binge drinks 30 beers or a fifth of liquor - states approximately 5 beers daily Denies illicit drug use. Allergy List No Known Environmental Allergies, environment No Known Drug Allergies, medication Active Home Meds: No Home Medications Available REVIEW OF SYSTEMS: GENERAL: Negative for fevers, chills, night sweats, weight loss. HEENT: Negative for double vision, blurred vision, glaucoma or cataracts. +Left ear pressure NECK: Negative for pain or stiffness, thyroid nodules, adenopathy. HEART: Negative for pain, pressure, palpitations, murmur. LUNGS: Negative for shortness of breath, wheezing, cough, bloody sputum. BREASTS: Negative for pain, discharge, lumps. ABDOMEN: Negative for nausea, vomiting, diarrhea, ulcers, blood in stools : Negative for dysuria, hematuria, discharge, pain, stones. MUSCULOSKELETAL: Negative for joint pain or stiffness, muscle pain, neck pain, low back pain. SKIN: Negative for rashes, lesions, itching. ENDOCRINE: Negative for temperature intolerance, flushing changes in hair or nails. HEME/ONC: Negative for abnormal bleeding, abnormal clotting, anemia. NEUROLOGIC: Negative for headaches, dizzy spells, weakness, numbness, tingling. PHYSICAL EXAMINATION: Vital Signs: Today Date/Time BP (mm/Hg) BP Position/Site Heart Rate Resp Temp (C) Temp (F) SPO2% O2 Device Blood Sugar (mg/dL) Pain Score Height (cm) Height (in) Weight (kg) Weight (lbs/ozs) BMI Head Cir (cm) 10/03/2022 21:13 175.26 cm 69 in 75.93 kg 167.4 lbs 24.72 10/03/2022 21:12 122/68 SITTING/L ARM 70 18 36.4 TEMPORAL SCANNING 97.5 TEMPORAL SCANNING 98 % GENERAL Well nourished, well-developed, in no acute distress. SKIN: Warm and dry without gross abnormalities. HEENT: Pupils equal, round, reactive to light and accommodation. +Narrowed L ear canal NECK: no bruits, no lymphadenopathy, no thyromegaly, no JVD. +Tenderness to post-auricular area with swelling LUNGS: Clear to auscultation and percussion. No rales, rhonchi, wheezes or rubs. No dyspnea at rest. HEART: Regular rate and rhythm, S1, S2, without S3, S4, no murmurs or rubs. ABDOMEN: Soft, good bowel sounds, nontender, no hepatosplenomegaly, no masses appreciated, no hernias. : No CVA tenderness EXTREMITIES: 2+ peripheral pulses, no edema, no clubbing or cyanosis. NEUROLOGIC: Awake and alert. Oriented to person, place, time, and situation. Normal gait and station. Sensation intact. Lab Results: Last 24 Hours: No Labs Available Ordered Meds Table: No Current Medications Available Assessment & Plan: 1. Depression with SI - Plan per Dr. Saeed 2. Tobacco use - nicotine patch per protocol if patient desires, discussed smoking cessation 3. Alcohol abuse - monitor for signs of withdrawal and seizures 4. Otitis Externa - treating with polymyxin gtts x5 days Time spent: Greater than 80 minutes spent with patient, 50% of the time spent with this patient was devoted to counseling and coordination of care IRISH Breen Progress Notes [facility] 10/06/2022 14:30 Demographics w/o Service Date Patient Name Age Sex Visit Number Admission Date/Time Attending Physician Room and Bed Emergency Contact STONEY MARIN 2000 21 years Male [id number] 10/03/2022 22:34 LATA SAEED [id number] PAR[place] MARIN - [id number] PSYCH DAILY PROGRESS NOTES DATE: 10/05/2022 Patient seen today, length of contact: 15 minutes PROCEDURE CODE: [id number] SUBJECTIVE APPRAISAL: 1. Sleep: Good 2. Anxiety: No worries. 3. Mood: Pretty good. 4. Side effects: None. 5. Discharge: Go to Rehab. REVIEW OF SYSTEMS: No new medical problems reported by staff or patient. CURRENT VITAL SIGNS: Vital Signs: Today Date/Time BP (mm/Hg) BP Position/Site Heart Rate Resp Temp (C) Temp (F) SPO2% O2 Device Blood Sugar (mg/dL) Pain Score Height (cm) Height (in) Weight (kg) Weight (lbs/ozs) BMI Head Cir (cm) 10/05/2022 05:31 137/76 SITTING/R ARM 72 18 36.2 TEMPORAL SCANNING 97.1 TEMPORAL SCANNING 98 % OBJECTIVE APPRAISAL: 1. VSS 2. Sleep: 4.5 hours 3. Appetite: 0, 100, 100% 4. BM: no 5. No suicidal/self-harm behaviors 6. No behavior problems with staff or peers 7. Tolerating medical detox without seizures or perceptual disturbance 8. Agreeable to [facility] referral MENTAL STATUS EXAMINATION: General Appearance: Lying in bed; NAD Motor: no obvious tremor Speech: Easily understood Mood/affect: Euthymic; normal range of affect appropriate for content Thought process: Organized; relevant; no evidence of loosening of association or flight of ideas Thought content: No evidence of delusions; asked and answered no current suicidal ideation, plan or intent Perception: Denies hallucinations Cognition: Alert; oriented to person, place, and time Insight/judgment: insight into reason for hospitalization limited by depression and alcohol abuse. Able to make own healthcare decisions. DIAGNOSIS: 1. Major depression, recurrent, moderate without psychosis 2. Alcohol use disorder, moderate, continuous 3. Rule out bipolar disorder ASSESSMENT: 1. Medically stable 2. Tolerating medical detox 3. Low fall risk 4. Low risk for suicidal/self-harm behaviors while hospitalized 5. Low risk for behavior problems with staff or peers 6. Tolerating current psychotropic medications 7. Continue to encourage alcohol treatment RECOMMENDATION/PLAN: The patients chart was reviewed. The case was discussed with nursing staff. We will continue to monitor the patient for mood, appetite, thought process, sleep and response to medications. Non-psychiatric conditions will be referred to the hospitalist. The patient will be seen daily for psychiatric follow-up and be followed daily by multidisciplinary team. I reviewed the risks versus benefits, Food and Drug Administration recommendations, and potential medication side effects and available treatment options. Remains at risk for relapse of alcohol use and impulsive behaviors including suicide attempt Severe function impairment Discharge may exacerbate symptoms PLAN: 1. Continue 15 minute checks for patient safety 2. Monitor for alcohol withdrawal 3. Continue Librium 25 mg tid PRN 4. Increase Remeron to 15 mg HS 5. Continue Wellbutrin XR 150 mg daily 6. Collateral information from family 7. Referral for alcohol treatment 8. Continue current discharge planning [facility] 10/06/2022 14:35 Demographics w/o Service Date Patient Name Age Sex Visit Number Admission Date/Time Attending Physician Room and Bed Emergency Contact STONEY MARIN 2000 21 years Male [id number] 10/03/2022 22:34 LATA SAEED [address] [place] MAR[place] - [id number] PSYCH DAILY PROGRESS NOTES DATE: 10/06/2022 Patient seen today, length of contact: 15 minutes PROCEDURE CODE: [id number] SUBJECTIVE APPRAISAL: 1. Sleep: Pretty good. 2. Anxiety: Better. I need to get in touch with my work. 3. Mood: I'm not thinking about hurting myself. 4. Side effects: None. 5. Discharge: I talked with my friend and he's going to help me not to drink. I need to get back to work. REVIEW OF SYSTEMS: No new medical problems reported by staff or patient. CURRENT VITAL SIGNS: Vital Signs: Today Date/Time BP (mm/Hg) BP Position/Site Heart Rate Resp Temp (C) Temp (F) SPO2% O2 Device Blood Sugar (mg/dL) Pain Score Height (cm) Height (in) Weight (kg) Weight (lbs/ozs) BMI Head Cir (cm) 10/06/2022 05:05 141/94 SITTING/R ARM 63 16 36.2 TEMPORAL SCANNING 97.1 TEMPORAL SCANNING 97 % OBJECTIVE APPRAISAL: 1. VSS 2. Sleep: 5 hours 3. Appetite: 100% at all meals 4. BM: yes 5. No suicidal/self-harm behaviors 6. No behavior problems with staff or peers 7. Tolerating medical detox without seizures or perceptual disturbance 8. Refusing [facility] referral at this time MENTAL STATUS EXAMINATION: General Appearance: Up speaking with social media project manager Motor: no obvious tremor Speech: Easily understood Mood/affect: Euthymic; normal range of affect appropriate for content Thought process: Organized; relevant; no evidence of loosening of association or flight of ideas Thought content: No evidence of delusions; asked and answered no current suicidal ideation, plan or intent Perception: Denies hallucinations Cognition: Alert; oriented to person, place, and time Insight/judgment: insight into reason for hospitalization limited by depression and alcohol abuse. Able to make own healthcare decisions. DIAGNOSIS: 1. Major depression, recurrent, moderate without psychosis 2. Alcohol use disorder, moderate, continuous 3. Rule out bipolar disorder ASSESSMENT: 1. Medically stable 2. Tolerating medical detox 3. Low fall risk 4. Low risk for suicidal/self-harm behaviors while hospitalized 5. Low risk for behavior problems with staff or peers 6. Tolerating current psychotropic medications 7. Refusing referral for alcohol treatment 8. Requesting discharge RECOMMENDATION/PLAN: The patients chart was reviewed. The case was discussed with nursing staff. We will continue to monitor the patient for mood, appetite, thought process, sleep and response to medications. Non-psychiatric conditions will be referred to the hospitalist. The patient will be seen daily for psychiatric follow-up and be followed daily by multidisciplinary team. I reviewed the risks versus benefits, Food and Drug Administration recommendations, and potential medication side effects and available treatment options. Remains at risk for relapse of alcohol use and impulsive behaviors including suicide attempt Severe function impairment Discharge may exacerbate symptoms PLAN: 1. Continue 15 minute checks for patient safety 2. Monitor for alcohol withdrawal 3. Continue Librium 25 mg tid PRN 4. Continue Remeron to 15 mg HS 5. Continue Wellbutrin XR 150 mg daily 6. Collateral information and safety plan with roommate 7. Continue to encourage alcohol treatment 8. Continue current discharge planning
--- OUTSIDE RECORDS SUMMARY | 2025-06-03 23:55 | XMS_ITS ---
Author Organization [facility] [employer] Address [address] [address] [address] [place] [address] Care Team Providers Care Provider Relations Rep Name Role Phone NinoConstance Primary Care Provider Jori Lim Unavailable [phone] REASON FOR VISIT to [facility] Medications Medication SIG (Take, Route, Frequency, Duration) [...] daily Encounters Encounter Location Date Provider Diagnosis [facility] [address] [place] [address] 02/03/2025 Jori Lim Plan Of Treatment No Information Progress Notes * TOMAS, Stoney RDOB:2000 (24 yo M)Acc No.[id number]:02/03/2025 UNLOCKED PROGRESS NOTE Patient: Stoney KRAUSE Provider: Graciela Lim DO :2000 A ge:24 Y S ex:Male Date:02/03/2025 Address:[address] , [facility] [place], [id number] Pcp:Constance Oneill Subjective: * Chief Complaints: * 1 . To est. * Medical History: * Social History: T obacco Use: T obacco use other than smoking A re you an other tobacco user? N o Tobacco Use/Smoking A re you a n onsmoker Exposed to second hand smoke E xposed to second hand smoke N o n on smoker caffeine 4 or more cups daily. * Medications: T aking Methylphenidate HCl 10 MG Tablet 1 tablet Orally Twice a day , Taking Symbicort 80-4.5 MCG/ACT Aerosol 2 puffs Inhalation Twice a day , Notes to Pharmacist: PRN Objective: * Vitals: Assessment: Plan: * Treatment: * Billing Information: * Visit Code: * Procedure Codes: * Electronic signature of Aldair Lim DO on 06/03/2025 at 07:52 AM CDT Sign off status: Pending Visit Status: N /S (No-Show) * Provider: Graciela Lim DO Date: 0 02/03/2025 Generated for Celia roger/[employer]/Linaitting on: 0 06/03/2025 07:52 AM CDT
--- OUTSIDE RECORDS SUMMARY | 2025-06-03 23:55 | XMS_ITS | Clinical Summary ---
Author Organization [facility] Address [address] [place] [address] Phone Care Team Providers Care Field Sales Executive Name Role Phone Provider, None Primary Care Provider Unavailabl e Allergies No known active allergies Medications No known medications Encounters Date Type Department Care Team Description 04/01/2025 11:49 PM CDT - 04/02/2025 5:15 PM CDT Emergency [facility] Emergency Dept. Services [address] [facility] [place] [address] Brittani Neville MD Depression with suicidal ideation Discharge Disposition: Dis/Trans to Psych Hosp/Psych Unit 04/01/2025 Travel 03/20/2025 9:34 PM CDT - 03/22/2025 10:13 AM CDT Emergency [facility] Emergency [address] [place] [address] Leonardo Ramos MD Landry, Juan Carl MD Major depressive disorder, remission status unspecified, unspecified whether recurrent Discharge Disposition: Dis/Trans to Psych Hosp/Psych Unit 03/20/2025 Travel from Last 3 Months Social History Tobacco Use Types Packs/Day Years Used Date Smoking Tobacco: Every Day Cigarettes Tobacco Cessation:Ready to Q uit: Not Asked; Counseling Given: Not Answered Alcohol Use Standard Drinks/Week Comments Yes 0 (1 standard drink = 0.6 oz pur e alcohol) drinks a couple times a week Sex and Gender Information Value Date Recorded Sex Assigned at Male 04/01/2025 11:55 PM CDT Legal Sex Male 8:52 AM CDT Gender Identity Male 06/09/2024 2:09 PM CDT Sexual Orientation Not on file Last Filed Vital Signs Vital Sign Reading Time Taken Comments Blood Pressure 149/69 04/02/2025 3:50 PM CDT Pulse 74 04/02/2025 3:50 PM CDT Temperature 36.7 C (98 F) 04/02/2025 3:50 PM CDT Respiratory Rate 16 04/01/2025 11:51 PM CDT Oxygen Saturation 96% 04/02/2025 3:50 PM CDT Inhaled Oxygen Concentration - - Weight 74.8 kg (165 lb) 04/01/2025 11:51 PM CDT Height 175.3 cm (5' 9) 04/01/2025 11:51 PM CDT Body Mass Index 24.37 04/01/2025 11:51 PM CDT Plan of Treatment Health Maintenance Due Date Last Done Comments Hepatitis C Virus (HCV) Screening 2000 Pneumococcal Immunization Combined (1 of 2 - PCV) 2020 03/03/2005, 06/12/2002, 03/31/2002, Additional history exists SARS-COV-2 Immunization ( - 2023- season) 2024 Influenza Immunization (#1) 07/27/2025/2 01/2021, 09/04/2019, 09/18/2018, Additional history exists Respiratory Syncytial Virus (RSV) Immunization (Adult) (1 - 1-dose 75+ series) 2076 Hepatitis B Immunization Completed 002, 06/12/2002, 2001, Additional history exists Meningococcal Immunization (ACWY) Completed 02/18/2018, 06/12/2013 Meningococcal B Immunization Completed 10/21/2018, 09/18/2018 Human Papillomavirus (HPV) Immunization Completed 12/12/2018, 09/18/2018, 02/18/2018 DTaP/Tdap/Td Immunization Discontinued 2018, 06/12/2013, 05/03/2007, Additional history exists TdaP Immunization Completed 03/21/2019, 06/12/2013 Rotavirus Immunization Aged Out No lo nger eligible based on patient's age to complete this topic Procedures Procedure Name Priority Date/Time Associated Diagnosis Comments ETHYL ALCOHOL (ETHANOL) STAT 04/02/2025 12:15 PM CDT EKG 12 LEAD STAT 04/02/2025 7:35 AM CDT TROPONIN I (TRP I) STAT 04/02/2025 6: 12 AM CDT EKG 12 LEAD STAT 04/02/2025 6:11 AM CDT TROPONIN I (TRP I) STAT 04/02/2025 1: 49 AM CDT ETHYL ALCOHOL (ETHANOL) STAT 04/02/2025 1:49 AM CDT CBC WITH AUTO DIFFERENTIAL STAT 04/02/2025 12:32 AM CDT SALICYLATE LEVEL STAT 04/02/2025 12:3 2 AM CDT ACETAMINOPHEN (TYLENOL) STAT 04/02/2025 12:32 AM CDT THYROID STIMULATING HORMONE (TSH) STAT 04/02/2025 12:32 AM CDT MAGNESIUM (MG) STAT 04/02/2025 12:32 AM CDT ETHYL ALCOHOL (ETHANOL) STAT 04/02/2025 12:32 AM CDT CMP (COMPREHENSIVE METABOLIC PANEL) STAT 04/02/2025 12:32 AM CDT COMPLETE BLOOD COUNT (CBC) WITH DIFF STAT 04/02/2025 12:32 AM CDT EKG 12 LEAD STAT 04/02/2025 12:31 AM CDT URINALYSIS (UA) MICROSCOPIC ONLY STAT 04/02/2025 12:21 AM CDT URINALYSIS REFLEX IF INDICATED BY ABNORMAL RESULTS STAT 04/02/2025 12:21 AM CDT URINE DRUG SCREEN STAT 04/02/2025 12: 21 AM CDT ID NOW COVID 19 CARLOS ALBERTO ([facility]) STAT 04/02/2025 12:21 AM CDT URINALYSIS REFLEX IF INDICATED BY ABNORMAL RESULTS STAT 03/20/2025 9:43 PM CDT URINE DRUG SCREEN STAT 03/20/2025 9:4 3 PM CDT CBC WITH AUTO DIFFERENTIAL STAT 03/20/2025 9:34 PM CDT SALICYLATE LEVEL STAT 03/20/2025 9:34 PM CDT ACETAMINOPHEN (TYLENOL) STAT 03/20/2025 9:34 PM CDT THYROID STIMULATING HORMONE (TSH) STAT 03/20/2025 9:34 PM CDT MAGNESIUM (MG) STAT 03/20/2025 9:34 PM CDT ETHYL ALCOHOL (ETHANOL) STAT 03/20/2025 9:34 PM CDT CMP (COMPREHENSIVE METABOLIC PANEL) STAT 03/20/2025 9:34 PM CDT COMPLETE BLOOD COUNT (CBC) WITH DIFF STAT 03/20/2025 9:34 PM CDT SARS-COV-2 BY MOLECULAR STAT 03/20/2025 9:34 PM CDT EKG 12 LEAD STAT 03/20/2025 9:28 PM CDT EKG SCAN 03/20/2025 12:00 AM CDT from Last 3 Months Results * Ethyl Alcohol (Ethanol) (04/02/2025 12:15 PM CDT) Only the most recent of4 resultswithin the time period is included. ETHANOL <10 0 - 79 mg/dL 04/02/2025 12:46 PM CDT [facility] ETHANOL <0.010 0.000 - 0.079 G/dL 04/02/2025 12:46 PM CDT [facility] Blood Venipuncture / Unknown 04/02/2025 12:15 PM CDT 04/02/2025 12:22 PM CDT us Leno Leong MD CHEMISTRY ORDERABLES [place] [address], [place] [phone] * EKG 12 LEAD (04/02/2025 7:35 AM CDT) Only the most recent of4 resultswithin the time period is included. 04/02/2025 7:35 AM CDT Impressions EXTERNAL EKG - 04/02/2025 8:44 [place] [address] Test Date: 2025-04-02 Pat Name: STONEY MARIN Department: Room: [facility] Gender: M Software Implementation Project Manager: HELEN : 2000 Requested By: LENO LEONG Order Number: [id number] Reading MD: Javier Chapman MD Measurements Intervals Sidney Rate: 69 P: 68 AL: 146 QRS: 82 QRSD: 89 T: 57 QT: 385 QTc: 413 Interpretive Statements Sinus rhythm ST elev, probable normal early repol pattern Electronically Signed On 04-02-2025 08:37:38 CDT by Javier Chapman MD Narrative Procedure Note Javier Chapman MD - 04/02/2025 IMPRESSION: [place] [address] Test Date: 2025-04-02 Pat Name: STONEY CABAES Department: Room: ED03 Gender: M Software Implementation Project Manager: HELEN : 2000 Requested By: LENO LEONG Order Number: [id number] Reading MD: Javier Chapman MD Measurements Intervals Sidney Rate: 69 P: 68 AL: 146 QRS: 82 QRSD: 89 T: 57 QT: 385 QTc: 413 Interpretive Statements Sinus rhythm ST elev, probable normal early repol pattern Electronically Signed On 04-02-2025 08:37:38 CDT by Javier Chapman MD us Leno Leong MD IMG ECG ORDERABLES Final Resul t EXTERNAL EKG * Troponin I (Trp I) (04/02/2025 6:12 AM CDT) Only the most recent of2 resultswithin the time period is included. TROPONIN I 0.013 0.000 - <0.034 ng/mL 04/02/2025 6:39 AM T [facility] Blood Venipuncture / Unknown 04/02/2025 6:12 AM CDT 04/02/2025 6:13 AM CDT us Brittani Neville MD CHEMISTRY ORDERABLES Final Res ult Performing Organization Address City/[facility] Co de Phone Number [facility] [address] [facility] [place] [address], [place] [phone] * (ABNORMAL) CBC with Auto Differential (04/02/2025 12:32 AM CDT) Only the most recent of2 resultswithin the time period is included. WBC 10.97(H) 3.88 - 10.35 10(3)/mcL 04/02/2025 12:41 AM CDT [facility] RBC 5.28 3.90 - 5.63 10(6)/mcL 04/02/2025 12:[address] [facility] HEMOGLOBIN (HGB) 15.8 13.0 - 17.5 g/dL 04/02/2025 12:[address] [facility] HEMATOCRIT (HCT) 44.3 40.0 - 52.0 % 04/02/2025 12:[address] [facility] MCV 83.9 82.0 - 100.0 fL 04/02/2025 12:[address] [facility] MCH 29.9 26.4 - 33.0 pg 04/02/2025 12:[address] [facility] MCHC 35.7(H) 31.4 - 35.3 g/dL 04/02/2025 12:[address] [facility] RDW 12.9 11.8 - 15.7 % 04/02/2025 12:[address] [facility] PLATELET COUNT 256 150 - 450 10(3)/mcL 04/02/2025 12:[address] [facility] MPV 10.5 8.7 - 12.2 fL 04/02/2025 12:[address] [facility] NEUTROPHILS 53.8 40.0 - 75.0 % 04/02/2025 12:[address] [facility] IMMATURE GRANULOCYTE 0.3 0.0 - 2.0 % 04/02/2025 12:[address] [facility] LYMPHOCYTES 36.2 20.0 - 40.0 % 04/02/2025 12:[address] [facility] MONOCYTES 7.7 0.0 - 10.0 % 04/02/2025 12:[address] [facility] EOSINOPHILS 1.4 0.0 - 4.0 % 04/02/2025 12:[address] [facility] BASOPHILS 0.6 0.0 - 1.0 % 04/02/2025 12:[address] [facility] ABSOLUTE NEUTROPHILS 5.90 1.50 - 8.00 10(3)/mcL 04/02/2025 12:[address] [facility] Blood Venipuncture / Unknown 04/02/2025 12:32 AM CDT 04/02/2025 12:34 AM CDT us Brittani Neville MD HEMATOLOGY ORDERABLES Final Re sult [facility] [address] [place] [address], * (ABNORMAL) Acetaminophen Level (04/02/2025 12:32 AM CDT) Only the most recent of2 resultswithin the time period is included. ACETAMINOPHEN <10.0(L) 10.0 - 30.0 mcg/mL 04/02/2025 12:50 AM CDT [facility] Blood Venipuncture / Unknown 04/02/2025 12:32 AM CDT 04/02/2025 12:34 AM CDT us Brittani Neville MD CHEMISTRY ORDERABLES Final Res ult Performing Organization Address [facility] Co de Phone Number [facility] [address] [place] [address], * Thyroid Stimulating Hormone (TSH) (04/02/2025 12:32 AM CDT) Only the most recent of2 resultswithin the time period is included. TSH 1.930 0.465 - 4.680 mIU/L 04/02/2025 1:17 AM CDT [facility] Blood Venipuncture / Unknown 04/02/2025 12:32 AM CDT 04/02/2025 12:34 AM CDT us Brittani Neville MD CHEMISTRY ORDERABLES Final Res ult Performing Organization Address City/[facility] Co de Phone Number [facility] [address] [place] [address], * (ABNORMAL) Salicylate Level (04/02/2025 12:32 AM CDT) Only the most recent of2 resultswithin the time period is included. SALICYLATE <1.0(L) 10.0 - 20.0 mg/dL 04/02/2025 12:55 AM CDT [facility] Blood Venipuncture / Unknown 04/02/2025 12:32 AM CDT 04/02/2025 12:34 AM CDT us Brittani Neville MD CHEMISTRY ORDERABLES Final Res ult Performing Organization Address [facility]/ZIP Co de Phone Number [facility] [address] [place] [address], [place] [phone] * Magnesium (MG) (04/02/2025 12:32 AM CDT) Only the most recent of2 resultswithin the time period is included. MAGNESIUM 2.0 1.6 - 2.3 mg/dL 04/02/2025 12:[address] [facility] Comment: Specimen is hemolyzed. In vitro hemolysis could affect results. Clinical correlation advised. Blood Venipuncture / Unknown 04/02/2025 12:32 AM CDT 04/02/2025 12:34 AM CDT Brittani Neville MD CHEMISTRY ORDERABLES Final Res ult Performing Organization Address [facility] Co de Phone Number [facility] [address] [place] [address], [place] [phone] * (ABNORMAL) CMP (Comprehensive Metabolic Panel) (04/02/2025 12:32 AM CDT) Only the most recent of2 resultswithin the time period is included. SODIUM 141 137 - 145 mmol/L 04/02/2025 12:[address] [facility] POTASSIUM 4.0 3.5 - 5.1 mmol/L 04/02/2025 12:[address] [facility] CHLORIDE 101 98 - 107 mmol/L 04/02/2025 12:[address] [facility] CO2, VENOUS 24 22 - 30 mmol/L 04/02/2025 12:[address] [facility] GLUCOSE 85 70 - 106 mg/dL 04/02/2025 12:[address] [facility] BUN 13 9 - 20 mg/dL 04/02/2025 12:[address] [facility] CREATININE, BLOOD 1.50(H) 0.66 - 1.25 mg/dL 04/02/2025 12:[address] [facility] ALKALINE PHOSPHATASE 69 38 - 126 U/L 04/02/2025 12:[address] [facility] SGPT (ALT) 32 1 - 49 U/L 04/02/2025 12:[address] [facility] SGOT (AST) 30 17 - 59 U/L 04/02/2025 12:[address] [facility] ALBUMIN 4.8 3.5 - 5.0 g/dL 04/02/2025 12:[address] [facility] T BILI 0.5 0.2 - 1.3 mg/dL 04/02/2025 12:[address] [facility] TOTAL PROTEIN 7.8 6.3 - 8.2 g/dL 04/02/2025 12:[address] [facility] CALCIUM 8.6 8.4 - 10.2 mg/dL 04/02/2025 12:[address] [facility] ANION GAP 16.0 6.0 - 16.0 mmol/L 04/02/2025 12:[address] [facility] BUN/CREATININE RATIO 9 7 - 30 ratio 04/02/2025 12:[address] [facility] A/G RATIO 1.6 0.9 - 2.3 04/02/2025 12:[address] [facility] GLOBULIN 3.0 2.2 - 3.9 g/dL 04/02/2025 12:[address] [facility] GFR, ESTIMATED >60 >60 04/02/2025 12:[address] [facility] OSMOLALITY 281 273 - 304 mOsm/kg 04/02/2025 12:[address] [facility] Blood Venipuncture / Unknown 04/02/2025 12:32 AM T 04/02/2025 12:34 AM [facility] us Brittani Neville MD CHEMISTRY ORDERABLES Final Res ult [facility] [address] [place] [address], [place] [phone] * (ABNORMAL) Urinalysis with Reflex if Indicated (04/02/2025 12:21 AM CDT) Only the most recent of2 resultswithin the time period is included. URINALYSIS COLOR Yellow Yellow, Light Yellow 04/02/2025 12:[address] [facility] URINALYSIS CLARITY Clear Clear 04/02/2025 12:[address] [facility] URINE PH 6.0 5.0 - 8.0 04/02/2025 12:[address] [facility] SPECIFIC GRAVITY >=1.030(H) 1.005 - 1.020 04/02/2025 12:[address] [facility] PROTEIN, RANDOM URINE Negative Negative 04/02/2025 12:[address] [facility] URINE GLUCOSE, QUAL Negative Negative 04/02/2025 12:[address] [facility] URINE KETONES Trace(A) Negative 04/02/2025 12:[address] [facility] URINE BLOOD Trace-Intact (A) Negative nick/ul 04/02/2025 12:[address] [facility] NITRITE Negative Negative 04/02/2025 12:[address] [facility] URINE BILIRUBIN Negative Negative 12:[address] [facility] UROBILINOGEN 0.2 0.2 , 1.0 , Normal mg/dL 04/02/2025 12:[address] [facility] WBC ESTERASE Negative Negative 04/02/2025 12:[address] [facility] Urine URINE SPECIMEN OBTAINED BY CLEAN CATCH PROCEDURE / Unknown Non-Phlebotomy Collection / Unknown 04/02/2025 12:21 AM CDT 04/02/2025 12:34 AM CDT us Brittani Neville MD URINE ORDERABLES Final Result [facility] [address] [place] [address], [place] [phone] * COVID-19 ID Now CARLOS ALBERTO (04/02/2025 12:21 AM CDT) Pathologist [facility] COVID 19 CARLOS ALBERTO NOT DETECTED Negative 04/02/2025 12:51 AM CDT [facility] Nasopharyngeal Non-Phlebotomy Collection / Unknown 04/02/2025 12:21 AM CDT 04/02/2025 12:34 AM CDT Brittani Neville MD IMMUNOLOGY ORDERABLES Final Re sult [facility] [address] [place] [address], [place] [phone] * (ABNORMAL) Urinalysis (UA) Microscopic Only (04/02/2025 12:21 AM CDT) [facility] URINE RBC'S 0-2(A) None /hpf 04/02/2025 12:49 AM CDT [facility] WBC (Urine) None None /hpf 04/02/2025 12:49 AM T [facility] BACTERIA, URINE Rare(A) None Seen /hpf 04/02/2025 12:49 AM CDT [facility] SQUAMOUS EPITHELELIAL CELLS None None /hpf 04/02/2025 12:49 AM T [facility] URINE MUCOUS 1+(A) None 04/02/2025 12:49 AM T [facility] Urine URINE SPECIMEN OBTAINED BY CLEAN CATCH PROCEDURE / Unknown Non-Phlebotomy Collection / Unknown 04/02/2025 12:21 AM CDT 04/02/2025 12:34 AM CDT us Brittani Neville MD URINE ORDERABLES Final Result [facility] [address] [place] [address], [place] [phone] * Urine Drug Screen (04/02/2025 12:21 AM CDT) Only the most recent of2 resultswithin the time period is included. [facility] UR PHENCYCLIDINE NEGATIVE NEGATIVE 04/02/20 12:41 AM CDT [facility] UR BENZODIAZEPINES NEGATIVE NEGATIVE 2024 12:41 AM CDT [facility] UR COCAINE METABOLITE NEGATIVE NEGATIVE 04/02/2025 12:41 AM CDT [facility] UR AMPHETAMINE NEGATIVE NEGATIVE 04/02/2025 12:41 AM CDT [facility] UR CANNABINOID NEGATIVE NEGATIVE 04/02/2025 12:41 AM CDT [facility] UR OPIATES NEGATIVE NEGATIVE 04/02/2025 12:41 AM CDT [facility] UR BARBITURATE NEGATIVE NEGATIVE 04/02/2025 12:41 AM CDT [facility] UR TRICYCLIC ANTIDEPRESS SCREEN NEGATIVE NEGATIVE 04/02/2025 12:41 AM CDT [facility] UR ECSTASY NEGATIVE NEGATIVE 04/02/2025 12:41 AM CDT [facility] UR OXYCODONE NEGATIVE NEGATIVE 04/02/2025 12:41 AM CDT [facility] UR PROPOXYPHENE NEGATIVE NEGATIVE 12:41 AM CDT [facility] Urine Non-Phlebotomy Collection / Unknown 04/02/2025 12:21 AM CDT 04/02/2025 12:34 AM CDT us Brittani Neville MD URINE ORDERABLES Final Result Performing Organization Address City/[facility]/ZIP Co de Phone Number [facility] [address] [place] [address], * SARS-COV-2 BY MOLECULAR (03/20/2025 9:34 PM CDT) SARSCOV2 NOT DETECTED (Referenc e Range for this test is Not Detected) 03/20/2025 10:27 PM CDT [facility] Comment:This test was perfor med by a Reverse Tractor Driver PCR Method. Other NASOPHARYNGEAL STRUCTURE / Unknown Non-Phlebotomy Collection / Unknown 03/20/2025 9:34 PM CDT 03/20/2025 9:47 PM CDT us Leonardo Ramos MD MICROBIOLOGY - GENERAL OR DERABLES Final Result [facility] [address] [place] [address] * EKG SCAN (03/20/2025 12:00 AM CDT) 03/20/2025 us Provider Scan IMG ECG ORDERABLES Final Result RESULTING AGENCY from Last 3 Months Insurance MEDICAID [place] Care Teams Field Sales Executive Relationship Specialty Start Date End Date Provider, None [place] PCP - General 05/02/22
--- NOTE | 2025-06-03 23:59 | ED.PSYCH ---
HPI - Psych General Chief Complaint: Psychiatric Symptoms <GURDEEP Gonzalez Last Filed: 06/04/25 02:54> Stated Complaint: suicidal thoughts <GURDEEP Gonzalez Last Filed: 06/04/25 02:54> Time Seen by Provider: 06/03/25 23:06 <GURDEEP Gonzalez Last Filed: 06/04/25 02:54> Source: patient <GURDEEP Gonzalez Last Filed: 06/04/25 02:54> Mode of arrival: ambulatory <GURDEEP Gonzalez Last Filed: 06/04/25 02:54> Limitations: no limitations <GURDEEP Gonzalez Last Filed: 06/04/25 02:54> History of Present Illness HPI Narrative: Patient is a 24-year-old male who presents the ED with report of suicidal ideation. Patient reports he has been feeling increasingly depressed over the past few months. States today he became to a breaking point. Began feeling suicidal. Thought about taking pills to overdose. Did not attempt anything. States he spoke to a friend and then decided to come here for further evaluation. Denies any previous suicide attempts. He does not currently see a psychiatrist or counselor. Is on Effexor for depression and is typically compliant with this, but states he has not taken this yesterday or today. Denies any homicidal ideation. <GURDEEP Gonzalez Last Filed: 06/04/25 02:54> Related Data Allergies/Adverse Reactions: Allergies Allergy/AdvReac Type Severity Reaction Status Date / Time No Known Allergies Allergy Verified 06/03/25 23:04 <GURDEEP Gonzalez Last Filed: 06/04/25 02:54> Review of Systems Review of Systems: All systems reviewed & are unremarkable except as noted in HPI. <GURDEEP Gonzalez Last Filed: 06/04/25 02:54> All systems reviewed & are unremarkable except as noted in HPI and below <GURDEEP Gonzalez Last Filed: 06/04/25 02:54> Exam Narrative: GENERAL: Well appearing, well-nourished, non-toxic, in no acute distress. HEAD: Normocephalic, atraumatic. RESPIRATORY: Airway patent, respirations nonlabored. CARDIOVASCULAR: Regular rate and rhythm MUSCULOSKELETAL: Moves all extremities. No gross deformities. SKIN: Warm, dry, normal color. NEURO: A&O X3. Speech clear. PSYCHIATRIC: Appropriate mood and affect. Normal interaction. <Aury Kidd PA-C - Last Filed: 06/04/25 02:54> Course [employer] DISTRICT SWITCHBOARD OPERATOR/PA Physician Supervision For this patient encounter, I reviewed the POLICE DISTRICT SWITCHBOARD OPERATOR or PA documentation, treatment plan, and medical decision making and had [id number] time with this patient. I performed all aspects of the MDM as documented. <Angle Rubalcava MD - Last Filed: 06/04/25 06:02> Vital Signs Vital signs: Vital Signs Temperature 98.2 F 06/03/25 23:01 Pulse Rate 102 H 06/03/25 23:01 Respiratory Rate 16 06/03/25 23:01 Blood Pressure 110/78 06/03/25 23:01 Pulse Oximetry 99 06/03/25 23:01 Oxygen Delivery Room Air 06/03/25 23:01 Temperature 98.2 F 06/04/25 04:00 Pulse Rate 59 L 06/04/25 05:33 Respiratory Rate 15 06/04/25 05:33 Blood Pressure 105/67 06/04/25 05:33 Pulse Oximetry 99 06/04/25 05:33 Oxygen Delivery Room Air 06/03/25 23:01 <Aury Kidd PA-C - Last Filed: 06/04/25 02:54> Vital Signs Temperature 98.2 F 06/03/25 23:01 Pulse Rate 102 H 06/03/25 23:01 Respiratory Rate 16 06/03/25 23:01 Blood Pressure 110/78 06/03/25 23:01 Pulse Oximetry 99 06/03/25 23:01 Oxygen Delivery Room Air 06/03/25 23:01 Temperature 98.2 F 06/04/25 04:00 Pulse Rate 59 L 06/04/25 05:33 Respiratory Rate 15 06/04/25 05:33 Blood Pressure 105/67 06/04/25 05:33 Pulse Oximetry 99 06/04/25 05:33 Oxygen Delivery Room Air 06/03/25 23:01 <Angle Rubalcava MD - Last Filed: 06/04/25 06:02> MDM - Psych MDM Narrative Medical decision making narrative: Patient presented to ED with increased depression, suicidal ideation. Had thoughts of wanting to overdose on medication. Vital signs stable. ED psych workup was initiated. Laboratory studies are unremarkable. Patient medically cleared to undergo psychiatric evaluation by crisis team. Crisis evaluated patient and determined him to meet criteria for inpatient psychiatric placement. Patient under voluntary status at this time. Awaiting bed placement. Care signed out to Dr. Rubalcava at shift change pending psychiatric bed placement. Patient has been calm and cooperative throughout ED stay. <Aury Kidd PA-C - Last Filed: 06/04/25 02:54> Patient presented to ED with increased depression, suicidal ideation. Had thoughts of wanting to overdose on medication. Vital signs stable. ED psych workup was initiated. Laboratory studies are unremarkable. Patient medically cleared to undergo psychiatric evaluation by crisis team. Crisis evaluated patient and determined him to meet criteria for inpatient psychiatric placement. Patient under voluntary status at this time. Awaiting bed placement. Care signed out to Dr. Rubalcava at shift change pending psychiatric bed placement. Patient has been calm and cooperative throughout ED stay. [place]: Patient was accepted at [facility] unit under Dr. Sanchez. <Angle Rubalcava MD - Last Filed: 06/04/25 06:02> Medical Records Attestation: I reviewed the patient's medical records. <Aury Kidd PA-C - Last Filed: 06/04/25 02:54> Lab Data Attestation: I reviewed the patient's lab results. <Aury Kidd PA-C - Last Filed: 06/04/25 02:54> Result diagrams: 06/03/25 23:26 06/03/25 23:26 <GURDEEP Gonzalez Last Filed: 06/04/25 02:54> Labs: Lab Results 06/03/25 Range/Units 23: WBC 13.5 H (4.5-10.0) K/mm3 RBC 5.60 (4.6-6.20) M/mm3 Hgb 16.0 (14.0-18.0) g/dL Hct 47.4 (42.0-52.0) % MCV 84.6 (80-100) fl MCH 28.6 (26-34) pg MCHC 33.8 (32-36) g/dl RDW 13.1 (11.5-14.5) % Plt Count 223 (150-375) k/mm3 MPV 10.3 (7.4-10.4) fl Immature Gran % (Auto) 0.2 (0-0.5) % Neut % (Auto) 68.7 (45.5-73.1) % Lymph % (Auto) 22.2 (18.3-44.2) % Coles % (Auto) 7.0 (2.6-8.5) % Eos % (Auto) 1.4 (0-4.4) % Baso % (Auto) 0.5 (0.2-1.2) % Lymph # (Auto) 3.00 (0.9-3.2) K/mm3 Coles # (Auto) 0.9 H (0.1-0.6) K/mm3 Eos # (Auto) 0.2 (0-0.3) K/mm3 Baso # (Auto) 0.1 (0.0-0.1) K/mm3 Abs Immat Gran (auto) 0.03 (0.00-0.031) K/mm3 Absolute Neuts (auto) 9.3 H (1.3-6.7) K/mm3 Absolute Nucleated RBC 0.000 (0.0-0.012) K/mm3 Nucleated RBC % 0.0 (0.0-0.2) % Sodium 140 (137-145) mmol/L Potassium 4.1 (3.4-5.0) mmol/L Chloride 103 (98-107) mmol/L Carbon Dioxide 27 (22-30) mmol/L Anion Gap 10 (4-12) mmol/L BUN 18 (9-20) mg/dL Creatinine 0.93 (0.7-1.3) mg/dL Estim Creat Clear Calc 109 ml/min Estimated GFR > 60 (59 - ) Glucose 98 (65-110) mg/dL Calcium 9.8 (8.4-10.2) mg/dL Total Bilirubin 0.2 (0.2-1.3) mg/dL AST 40 (17-59) U/L ALT 30 (6-50) U/L Alkaline Phosphatase 60 (38-126) U/L Total Protein 8.1 (6.3-8.2) g/dL Albumin 5.0 (3.5-5.1) g/dL TSH (Reflex) 2.330 (0.465-4.68) uIU/mL Urine Color Yellow (Yellow) Urine Appearance Clear (Clear) Urine pH 6.5 (5.0-9.0) Ur Specific [place] 1.025 (1.001-1.035) Urine Protein Negative (Negative) mg/dL Urine Glucose (UA) Negative (Negative) mg/dL Urine Ketones Negative (Negative) mg/dL Ur Blood (Man) Negative (Negative) Urine Nitrate Negative (Negative) Urine Bilirubin Negative (Negative) Urine Urobilinogen 0.2 (<2.0) mg/dL Leukocyte Esterase Rfl Negative (Negative) TARA/UL Urine Opiates Screen Negative (Negative) Urine Methadone Screen Negative (Negative) Ur Barbiturates Screen Negative (Negative) Ur Phencyclidine Scrn Negative (Negative) Ur Amphetamine Screen Negative (Negative) U Benzodiazepines Scrn Negative (Negative) Urine Cocaine Screen Negative (Negative) U Cannabinoids Screen Negative (Negative) Ethyl Alcohol < 10 (<10) mg/dL SARS-CoV-2 RNA (RT-PCR) Negative (Negative) <Aury Kidd PA-C - Last Filed: 06/04/25 02:54> Lab Results 06/03/25 Range/Units 23:26 WBC 13.5 H (4.5-10.0) K/mm3 RBC 5.60 (4.6-6.20) M/mm3 Hgb 16.0 (14.0-18.0) g/dL Hct 47.4 (42.0-52.0) % MCV 84.6 (80-100) fl MCH 28.6 (26-34) pg MCHC 33.8 (32-36) g/dl RDW 13.1 (11.5-14.5) % Plt Count 223 (150-375) k/mm3 MPV 10.3 (7.4-10.4) fl Immature Gran % (Auto) 0.2 (0-0.5) % Neut % (Auto) 68.7 (45.5-73.1) % Lymph % (Auto) 22.2 (18.3-44.2) % Coles % (Auto) 7.0 (2.6-8.5) % Eos % (Auto) 1.4 (0-4.4) % Baso % (Auto) 0.5 (0.2-1.2) % Lymph # (Auto) 3.00 (0.9-3.2) K/mm3 Coles # (Auto) 0.9 H (0.1-0.6) K/mm3 Eos # (Auto) 0.2 (0-0.3) K/mm3 Baso # (Auto) 0.1 (0.0-0.1) K/mm3 Abs Immat Gran (auto) 0.03 (0.00-0.031) K/mm3 Absolute Neuts (auto) 9.3 H (1.3-6.7) K/mm3 Absolute Nucleated RBC 0.000 (0.0-0.012) K/mm3 Nucleated RBC % 0.0 (0.0-0.2) % Sodium 140 (137-145) mmol/L Potassium 4.1 (3.4-5.0) mmol/L Chloride 103 (98-107) mmol/L Carbon Dioxide 27 (22-30) mmol/L Anion Gap 10 (4-12) mmol/L BUN 18 (9-20) mg/dL Creatinine 0.93 (0.7-1.3) mg/dL Estim Creat Clear Calc 109 ml/min Estimated GFR > 60 (59 - ) Glucose 98 (65-110) mg/dL Calcium 9.8 (8.4-10.2) mg/dL Total Bilirubin 0.2 (0.2-1.3) mg/dL AST 40 (17-59) U/L ALT 30 (6-50) U/L Alkaline Phosphatase 60 (38-126) U/L Total Protein 8.1 (6.3-8.2) g/dL Albumin 5.0 (3.5-5.1) g/dL TSH (Reflex) 2.330 (0.465-4.68) uIU/mL Urine Color Yellow (Yellow) Urine Appearance Clear (Clear) Urine pH 6.5 (5.0-9.0) Ur Specific [place] 1.025 (1.001-1.035) Urine Protein Negative (Negative) mg/dL Urine Glucose (UA) Negative (Negative) mg/dL Urine Ketones Negative (Negative) mg/dL Ur Blood (Man) Negative (Negative) Urine Nitrate Negative (Negative) Urine Bilirubin Negative (Negative) Urine Urobilinogen 0.2 (<2.0) mg/dL Leukocyte Esterase Rfl Negative (Negative) TARA/UL Urine Opiates Screen Negative (Negative) Urine Methadone Screen Negative (Negative) Ur Barbiturates Screen Negative (Negative) Ur Phencyclidine Scrn Negative (Negative) Ur Amphetamine Screen Negative (Negative) U Benzodiazepines Scrn Negative (Negative) Urine Cocaine Screen Negative (Negative) U Cannabinoids Screen Negative (Negative) Ethyl Alcohol < 10 (<10) mg/dL SARS-CoV-2 RNA (RT-PCR) Negative (Negative) <Angle Rubalcava MD - Last Filed: 06/04/25 06:02> Discharge Plan Discharge Clinical Impression: Depression with suicidal ideation <Aury Kidd PA-C - Last Filed: 06/04/25 02:54> Patient Disposition: Psychiatric Hosp <Aury Kidd PA-C - Last Filed: 06/04/25 02:54> Condition: Serious <Aury Kidd PA-C - Last Filed: 06/04/25 02:54> Patient Language: Bulgarian <Aury Kidd PA-C - Last Filed: 06/04/25 02:54> Follow-up/Referrals: UNKNOWN,DOCTOR [Primary Care Provider] - <Aury Kidd PA-C - Last Filed: 06/04/25 02:54>
[2025-06-04 00:13] LABS: Thyroid Stimulating Hormone Reflex 2.330 uIU/mL (0.465-4.68)
[2025-06-04 00:44] LABS: SARS-CoV-2 RNA PCR Negative (Negative)
[2025-06-04 00:49] LABS: Appearance Urine Clear (Clear); Specific Grav Ur 1.025 (1.001-1.035)
[2025-06-04 00:50] LABS: Add Urine Microscopic? NO; Glucose Urine UA Negative (Negative); Leukocyte Esterase Ur Negative LEU/UL (Negative); Nitrate Urine Negative (Negative)
[2025-06-04 04:00] VITALS: BP 93/59; PULSE 63; RESP 16; TEMP 36.8; O2SAT 99
--- NOTE | 2025-06-04 04:03 | PC.NURSE ---
pt lying on bed with eyes closed, respirations even and unlabored.
--- NOTE | 2025-06-04 04:35 | PC.NURSE ---
Pt accepted to [facility], accepting MD Sanchez.
[2025-06-04 05:33] VITALS: BP 105/67; PULSE 59; RESP 15; O2SAT 99
== END 2025-06-04 06:10 ==
PROVIDERS: Emergency Provider Physician Assistant
DX: F32.A Depression, unspecified (principal); R45.851 Suicidal ideations; Z20.822 Contact with and (suspected) exposure to COVID-19
CPT/HCPCS: 36415; 80053; 80307; 81003; 82077; 84443; 85025; 87635; 99285